=== PATIENT | male | born 1930 | race Caucasian/White ===

== ENCOUNTER 2019-03-26 05:34 | Inpatient (IN) ==
[2019-03-26] MEDS ORDERED: ACETAMINOPHEN 325 MG TABLET PO ONE (06:56)
--- NOTE | 2019-03-26 07:01 | Emergency Department Note ---
Abdominal Pain HPI - General Chief Complaint: Abdominal Pain Stated Complaint: abdominal pain Time Seen by Provider: 03/26/19 06:10 Source: EMS Mode of arrival: EMS Limitations: no limitations - History of Present Illness HPI Narrative: This pleasant 89-year-old gentleman reports that yesterday afternoon he began to have lower abdominal pain; he has not had prior similar. It has progressed to be more severe. Is nonradiating. he has not had a bowel movement; has not changed with eating. He has not noted any fevers chills or sweats until he has been here. REVIEW OF SYSTEMS: Denies chest pain, cough, wheezing, phlegm, nausea, vomiting, diarrhea, constipation, hematochezia, melena, dysuria, dizziness, depression. Has some chronic low back pain. - Related Data Home Medications Medication Instructions Recorded Confirmed allopurinol 300 mg tablet 300 mg PO QDAY tab 08/16/14 03/26/19 cyanocobalamin (vitamin B-12) 1,000 mcg PO QDAY tab 08/16/14 03/26/19 1,000 mcg tablet docusate sodium 250 mg capsule 250 mg PO BID cap 08/16/14 03/26/19 ferrous sulfate 325 mg (65 mg 325 mg PO QDAY tab 08/16/14 03/26/19 iron) tablet simvastatin 20 mg tablet 20 mg PO QPM tab 08/16/14 03/26/19 nhgcgquj-cuh-kbbvx acid 0.4 1 tab PO .QD tab 09/27/14 03/26/19 mg-lycopene 300 mcg-lutein 250 mcg tablet metoprolol tartrate 25 mg tablet 12.5 mg PO BID tab 01/02/15 03/26/19 insulin glargine 100 unit/mL (3 10 unit SUB-Q QDAY 07/23/17 03/26/19 mL) subcutaneous pen alogliptin 12.5 mg tablet 12.5 mg PO QDAY 08/24/18 03/26/19 warfarin 5 mg tablet 5 mg PO QDAY 08/24/18 03/26/19 furosemide 20 mg tablet 40 mg PO BID tab 12/23/18 03/26/19 Budesonide/Formoterol Fumarate 2 puff IH Q12 03/26/19 03/26/19 [Budesonide-Formoterol 160-4.5] Potassium Chloride [Kdur] 10 meq PO DAILY 03/26/19 03/26/19 Allergies Allergy/AdvReac Type Severity Reaction Status Date / Time No Known Drug Allergies Allergy Verified 03/23/19 10:54 Abdominal Pain PMH - Past Medical History [facility] Narrative: Medical History (Last Updated 03/26/19 @ 07:06 by Omari Qureshi DO) snf (current) use of anticoagulants (Chronic) Atrial fibrillation (Chronic) Diabetes mellitus, type II (Chronic) Chronic kidney disease, stage III (moderate) (Chronic) 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) Cardiomegaly (Chronic) Morbid obesity (Chronic) Pulmonary arterial hypertension (Chronic) Hypoxemia (Chronic) KACI on CPAP (Chronic) 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) Hypertensive renal disease (Chronic) Peripheral vascular disease (Chronic) Hypertension (Chronic) History of gout (Chronic) Hyperlipidemia (Chronic) Edema (Chronic) Anasarca (Resolved) Past Surgical History (Last Updated 03/26/19 @ 07:02 by Omari Qureshi DO) History of transurethral resection of prostate (Acute) History of biopsy (Acute 06/21/14) History of hernia surgery (Acute) History of tonsillectomy (Acute) S/P cataract extraction (Acute) Family History (Last Reviewed 03/23/19 @ 11:23 by GRETEL Ordonez) Unknown No family history of kidney disease Father Malignant neoplasm Medical history: Denies: cancer, CHF, CVA, DVT, TIA Denies: diverticulitis, kidney stone, pancreatitis, peptic ulcer disease Psychiatric history: Denies: anxiety, depression - Social History Smoking status: Never smoker Alcohol use: Reports: None Drug use: Reports: none. Denies: marijuana Physical Exam Limitations: no limitations General appearance: alert, in no apparent distress, other (quite warm to touch.) Head: atraumatic, normocephalic Eye: Present: PERRL, EOMI ENT: Present: mucous membranes dry Neck: Present: trachea midline. Absent: lymphadenopathy, thyromegaly Chest: Present: symmetric chest wall rise Respiratory: Present: normal lung sounds bilaterally. Absent: respiratory distress, wheezes, stridor, accessory muscle use, prolonged expiratory phase Cardiovascular: Present: tachycardia, irregular rhythm. Absent: systolic murmur, diastolic murmur Abdominal: Present: soft, tenderness. Absent: distention, guarding, rebound, rigidity, organomegaly, mass Abdominal tenderness: Present: moderate. Absent: RLQ Extremities: Absent: pedal edema, pretibial edema (1/4 bilaterally.) Back: Absent: CVA tenderness (R), CVA tenderness (L), spinous process tenderness Neurological: Present: alert, oriented X3 Psychiatric: Present: normal affect, normal mood Skin: Present: warm, dry Course Vital Signs Temperature 101.8 F H 03/26/19 05:35 Pulse Rate 102 H 03/26/19 05:35 Respiratory Rate 18 03/26/19 05:35 Blood Pressure 148/72 03/26/19 05:35 Pulse Oximetry (%) 90 03/26/19 05:35 Temperature 100.8 F H 03/26/19 07:53 Pulse Rate 95 H 03/26/19 06:17 Respiratory Rate 27 H 03/26/19 06:17 Blood Pressure 130/83 03/26/19 06:17 Pulse Oximetry (%) 97 03/26/19 06:17 Abdominal Pain - MDM Narrative Medical decision making narrative: 6:23 AM - 89-year-old with lower abdominal pain and fever. Will need to do general work-up and imaging. Labs returned with mild anemia, new. Lactic acid 2.2 CRP elevated at 7.7 BUN/Cr at 28 and 1.6, similar to previous/stable. Bili 2.1 8:45 AM - EKG done because of possible ST depression and his rhythm strip. It confirms atrial fibrillation with incomplete right bundle branch block and significant ST depression in the anterior leads consider ischemia. We are seeking an old EKG. Patient has no complaints of chest discomforts. Troponin. 8:50 AM - CT Abd Pelvis Report: 1. 8 cm mass infiltrating the cecal wall resulting in partial bowel obstruction and decompression of the remaining colon. Adenocarcinoma is suspected. No definite evidence of metastatic adenopathy or metastases (although evaluation of liver other solid parenchymal organs is limited due to the absence of intravenous contrast). Suggest GI referral for colonoscopy. If colonoscopy is technically difficult due to sigmoid colon tortuosity, it could be percutaneously biopsied under CT guidance 2. 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 3. 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 Possible discussion with general surgeon to attempt diagnostic colonoscopy pending. Because of change in shift care transferred to Dr. Valdovinos for final disposition. - Lab Data Result diagrams: 03/26/19 05:45 03/26/19 05:45 Lab Results 03/26/19 03/26/19 03/26/19 Range/Units 05:45 05:45 05:45 WBC 8.7 (4.50-11.00) K/mcL RBC 4.05 L (4.63-6.08) M/mcL Hgb 12.0 L (13.7-17.5) g/dL Hct 37.8 L (40.1-51.0) % MCV 93.3 (80.0-100.0) fL MCH 29.6 (26.0-34.0) pg MCHC 31.7 (31.0-36.0) g/dL RDW 15.8 H (11.5-14.5) % Plt Count 227 (140-440) K/mcL MPV 10.7 H (7.4-10.4) fL Gran % 79.1 H (38.0-78.0) % Lymph % (Auto) 13.2 L (15.5-49.0) % Burnett % (Auto) 6.1 (1.0-12.0) % Eos % (Auto) 1.3 (0.0-7.0) % Baso % (Auto) 0.3 (0.0-2.0) % Gran # 6.84 (1.80-8.00) K/mcL Lymph # (Auto) 1.14 L (1.50-4.80) K/mcL Burnett # (Auto) 0.53 (0.10-0.90) K/mcL Eos # (Auto) 0.11 (0.00-0.70) K/mcL Baso # (Auto) 0.03 (0.00-0.30) K/mcL VBG Lactic Acid 2.2 H (0.5-2.0) mmol/L Sodium 139 (133-145) mmol/L Potassium 3.9 (3.3-5.1) mmol/L Chloride 99 (96-108) mmol/L Carbon Dioxide 25 (22-30) mmol/L Anion Gap 15.0 (8-16) BUN 28 H (8-23) mg/dl Creatinine 1.6 H (0.7-1.2) mg/dl GFR Calculation 38 Glucose 131 H (70-105) mg/dL Calcium 9.4 (8.6-10.4) mg/dl Total Bilirubin 2.1 H (0.0-1.0) mg/dL AST 18 (0-37) U/l ALT 16 (0-40) U/l Alkaline Phosphatase 79 (39-117) U/L C-Reactive Protein (0.0-0.8) mg/dl Total Protein 7.6 (5.9-8.4) gm/dL Albumin 3.7 (3.2-5.2) gm/dL Globulin 3.9 H (2.2-3.7) gm/dL Albumin/Globulin Ratio 0.9 L (1.0-2.3) 03/26/19 03/26/19 Range/Units 05:45 06:42 WBC (4.50-11.00) K/mcL RBC (4.63-6.08) M/mcL Hgb (13.7-17.5) g/dL Hct (40.1-51.0) % MCV (80.0-100.0) fL MCH (26.0-34.0) pg MCHC (31.0-36.0) g/dL RDW (11.5-14.5) % Plt Count (140-440) K/mcL MPV (7.4-10.4) fL Gran % (38.0-78.0) % Lymph % (Auto) (15.5-49.0) % Burnett % (Auto) (1.0-12.0) % Eos % (Auto) (0.0-7.0) % Baso % (Auto) (0.0-2.0) % Gran # (1.80-8.00) K/mcL Lymph # (Auto) (1.50-4.80) K/mcL Burnett # (Auto) (0.10-0.90) K/mcL Eos # (Auto) (0.00-0.70) K/mcL Baso # (Auto) (0.00-0.30) K/mcL VBG Lactic Acid 1.7 (0.5-2.0) mmol/L Sodium (133-145) mmol/L Potassium (3.3-5.1) mmol/L Chloride (96-108) mmol/L Carbon Dioxide (22-30) mmol/L Anion Gap (8-16) BUN (8-23) mg/dl Creatinine (0.7-1.2) mg/dl GFR Calculation Glucose (70-105) mg/dL Calcium (8.6-10.4) mg/dl Total Bilirubin (0.0-1.0) mg/dL AST (0-37) U/l ALT (0-40) U/l Alkaline Phosphatase (39-117) U/L C-Reactive Protein 7.7 H (0.0-0.8) mg/dl Total Protein (5.9-8.4) gm/dL Albumin (3.2-5.2) gm/dL Globulin (2.2-3.7) gm/dL Albumin/Globulin Ratio (1.0-2.3) Disposition Pt seen by HR ADMINISTRATOR/PA only: No Clinical Impression: Mass of cecum, Abnormal ECG Abdominal pain Qualifiers: Abdominal location: lower abdomen, unspecified Qualified Code(s): R10.30 - Lower abdominal pain, unspecified Fever Qualifiers: Fever type: unspecified Qualified Code(s): R50.9 - Fever, unspecified Disposition: Still a Patient Referrals: Lilian Langford ARNP [Primary Care Provider] -
[2019-03-26 07:08] LABS: Basophils # (Auto) 0.03 K/mcL (0.00-0.30); Basophils % (Auto) 0.3 % (0.0-2.0); Eosinophils # (Auto) 0.11 K/mcL (0.00-0.70); Eosinophils % (Auto) 1.3 % (0.0-7.0); Granulocytes % (Auto) 79.1 % (38.0-78.0); Hematocrit 37.8 % (40.1-51.0); Lymphocytes # (Auto) 1.14 K/mcL (1.50-4.80); Lymphocytes % (Auto) 13.2 % (15.5-49.0); Mean Cell Volume 93.3 fL (80.0-100.0); Mean Corpuscular HGB Conc 31.7 g/dL (31.0-36.0); Mean Platelet Volume 10.7 fL (7.4-10.4); Monocytes # (Auto) 0.53 K/mcL (0.10-0.90); Monocytes % (Auto) 6.1 % (1.0-12.0); Platelet Count 227 K/mcL (140-440); RBC 4.05 M/mcL (4.63-6.08); Red Cell Distribution Width 15.8 % (11.5-14.5); WBC 8.7 K/mcL (4.50-11.00)
[2019-03-26 07:09] LABS: ALT/SGPT 16 U/l (0-40); AST/SGOT 18 U/l (0-37); Albumin 3.7 gm/dL (3.2-5.2); Albumin/Globulin Ratio 0.9 (1.0-2.3); Alkaline Phosphatase 79 U/L (39-117); Bilirubin,Total 2.1 mg/dL (0.0-1.0); Blood Urea Nitrogen 28 mg/dl (8-23); Calcium 9.4 mg/dl (8.6-10.4); Carbon Dioxide 25 mmol/L (22-30); Chloride 99 mmol/L (96-108); Globulin 3.9 gm/dL (2.2-3.7); Glomerular Filtration Rate 38; Glucose 131 mg/dL (70-105)
--- NOTE | 2019-03-26 08:10 | Cat Scan Report ---
CLINICAL INFORMATION: Abdominal pain. History of hernia repair COMPARISON: Abdominal MRI 04/28/2014 TECHNIQUE: 0.625 mm helical slices were obtained from the mid heart through the subtrochanteric regions. Following reconstruction, 2.5 mm sagittal, coronal and axial reformatted images were processed and reviewed at bone and soft tissue windows.The exam was performed using radiation dose optimization techniques including, but not limited to, automated exposure control, adjustment of the mA and/or kV according to patient size and use of iterative reconstruction technique. FINDINGS: Lung bases show mild scarring or atelectasis in both posterior inferior lower lobes. No effusions. The heart is moderately enlarged with scattered calcific plaque in the coronary arteries. Abdominal views show the noncontrasted liver, spleen, pancreas both adrenal glands and right kidney to be normal in size, position and configuration and attenuation. A 12 mm simple cyst in the lateral mid left kidney is unchanged from the 2015 MRI. A fusiform infrarenal abdominal aortic aneurysm with a diameter of 3.7 cm is unchanged. Diffuse aneurysmal enlargement of both common iliac arteries appreciated: the left is 2.5 cm and the right is 1.8 cm. This is unchanged from the prior MRI. Pelvic images show urinary bladder to be unremarkable. There are multiple calcifications in the right prostate. A large left Spigelian hernia spanning 12 cm contains only mesenteric fat and a few calcifications. It is unchanged from 2015 There is an 8 x 7 cm mass infiltrating the cecal wall and nearly obliterating the cecal lumen. It is suspicious for adenocarcinoma. There is mild ejection in the pericolonic fat. There is mild dilatation of the jejunum and ileum compatible partial bowel obstruction. The colon, distal to the cecum, is markedly decompressed. Bone windows show only degenerative changes throughout the lumbar spine IMPRESSION: 1. 8 cm mass infiltrating the cecal wall resulting in partial bowel obstruction and decompression of the remaining colon. Adenocarcinoma is suspected. No definite evidence of metastatic adenopathy or metastases (although evaluation of liver other solid parenchymal organs is limited due to the absence of intravenous contrast). Suggest GI referral for colonoscopy. If colonoscopy is technically difficult due to sigmoid colon tortuosity, it could be percutaneously biopsied under CT guidance 2. 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 3. 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 Interpreted and Authenticated by: Leonard Gaviria 03/26/19
[2019-03-26 10:43] LABS: INR 2.9 (0.9-1.1); Prothrombin Time 30.5 sec (11.9-14.5)
[2019-03-26 10:59] LABS: Carcinoembryonic Antigen 17.1 ng/mL (0.0-3.4)
[2019-03-26] MEDS ORDERED: ACETAMINOPHEN 325 MG TABLET PO PRN (11:22)
--- NOTE | 2019-03-26 11:22 | Emergency Department Note ---
ED Note Addendum Note Addendum: Dr. Qureshi discussed hospital admission with Dr. Hughes. We did order a troponin on him on account of his EKG showing ST segment depression in V2 and V3 and V4, troponin was negative. He was not symptomatically with any type of chest pain or shortness of breath. The. At this point, I think he can be admitted. Monitor serial troponins. The. His biggest issue right now is tumor in the right lower quadrant. The abdomen, abdominal mass, which is likely cancerous. The. His CEA was also abnormal. Final diagnosis is abdominal pain and. Abdominal mass associated with fever. Initial orders written for Dr. Hughes who is currently in surgery
--- NOTE | 2019-03-26 15:18 | General Surg History&Physical ---
History of Present Illness Patient information: Note initiated : 03/26/19 at 3:16 pm Service Date, if different from initiated Date: [] Patient: Honorio Byrd a 89 y/o M admitted on 03/26/19 for abdominal pain. Chief Complaint: [] HPI: Mr. Byrd is a 89 year old M admitted for near obstructing cecal neoplasm. The patient states that he has acute onset of pain in his right lower quadrant and right flank on yesterday. The pain has increased since intensity. He has had bloating but states that he is not noted nausea, vomiting. He has noted that he has had difficulty with bowel movements and he's been using Dulcolax tablets regularly. He denies rectal bleeding or dark stools. He has been on iron therapy for anemia. He had colonoscopy over 10 years ago but states that it was normal. CT confirms a solid mass in the cecum measuring 7 x 8 cm causing near complete obstruction. He is admitted and after stabilization will undergo right colectomy. Review of Systems All systems PM: reviewed and no additional remarkable complaints except as stated (as noted in history of present illness and as below) - Constitutional fatigue, malaise, weakness - Cardiovascular dyspnea on exertion, palpatations (: Cold and tests), rapid heart rate, no chest pain with activity, no irregular heart rhythm - Respiratory dyspnea on exertion - Gastrointestinal abdominal pain, belching, bloating, change in bowel habits, cramping - Musculoskeletal arthralgias, stiffness - Integumentary no pruritus, no rash - Neurological tremor(s) - Hematologic/Lymphatic no easy bleeding, no easy bruising, no lymphadenopathy Past History Past medical history: Chronic obstructive sleep apnea. Diabetes mellitus type 2. Hypertension. Chronic kidney disease stage III. Chronic atrial fibrillation on chronic warfarin therapy. Compensated congestive heart failure. Peripheral vascular disease. Recent echocardiogram shows pulmonary hypertension with left ventricular ejection fraction of 55% and dilated right ventricle. Aortic valvular cross-section area 1.4 cm Past surgical history: Left inguinal hernia repair Past family history: Not quite sure of family illnesses Past social history: Never smoker. Drinks occasional alcoholic beverage Medications and Allergies Home Medications Medication Instructions Recorded Confirmed Type allopurinol 300 mg tablet 300 mg PO QDAY tab 08/16/14 03/26/19 History cyanocobalamin (vitamin B-12) 1,000 mcg PO QDAY tab 08/16/14 03/26/19 History 1,000 mcg tablet docusate sodium 250 mg capsule 250 mg PO BID cap 08/16/14 03/26/19 History ferrous sulfate 325 mg (65 mg 325 mg PO QDAY tab 08/16/14 03/26/19 History iron) tablet simvastatin 20 mg tablet 20 mg PO QPM tab 08/16/14 03/26/19 History cvtfafiu-gaa-yngan acid 0.4 1 tab PO .QD tab 09/27/14 03/26/19 History mg-lycopene 300 mcg-lutein 250 mcg tablet metoprolol tartrate 25 mg tablet 12.5 mg PO BID tab 01/02/15 03/26/19 History insulin glargine 100 unit/mL (3 10 unit SUB-Q QDAY 07/23/17 03/26/19 History mL) subcutaneous pen alogliptin 12.5 mg tablet 12.5 mg PO QDAY 08/24/18 03/26/19 History warfarin 5 mg tablet 5 mg PO QDAY 08/24/18 03/26/19 History furosemide 20 mg tablet 40 mg PO BID tab 12/23/18 03/26/19 History Budesonide/Formoterol Fumarate 2 puff IH Q12 03/26/19 03/26/19 History [Budesonide-Formoterol 160-4.5] Potassium Chloride [Kdur] 10 meq PO DAILY 03/26/19 03/26/19 History Allergies Allergy/AdvReac Type Severity Reaction Status Date / Time No Known Drug Allergies Allergy Verified 03/23/19 10:54 Exam Temp Pulse Resp BP Pulse Ox 98.5 F 97 H 14 123/72 92 03/26/19 13:20 03/26/19 13:20 03/26/19 13:20 03/26/19 13:20 03/26/19 13:20 - General physical appearance well developed, well nourished, no distress, moderate pain, obese - Eyes PERRL, normal ocular movement - ENT normal pinna, normal nares, normal mucosa, no hearing loss, no congestion - Head Head exam IM: Present: atraumatic, normal inspection, normocephalic - Neck no masses, no bruits, trachea midline, no lymphadenopathy, no venous distension - Cardiovascular Cardiovascular exam IM: Present: irregular rhythm, +S1, +S2, tachycardia. Absent: JVD - Respiratory normal expansion, normal respiratory effort, clear to auscultation - Abdomen Abdomen: Present: soft, non tender, bowel sounds, distended (distended abdomen; tender, hard mass right lower quadrant; nontender firm mass left lower quadrant; good active bowel sounds) Hernia: Present: none - Genitourinary Present: normal penis with no external lesions - Rectum Rectum: Present: normal sphincter tone, no hemorrhoids, no tenderness, no masses, no bleeding - Integumentary Present: no rash, no growths, no abnormal pigmentation - Neurologic Present: normal coordination, normal sensation, other (resting tremor) - Musculoskeletal Present: normal gait, normal posture - Psychiatric Present: oriented to time, oriented to person, oriented to place, speech is normal, memory intact Assessment and Plan (1) Mass of cecum Patient has a very large neoplastic mass of the cecum causing near complete obstruction. He cannot be prepped but will have right colectomy tomorrow. We'll need to correct pro time with fresh frozen plasma and vitamin K tonight and repeat PT/INR at 8 PM and in the morning Status: Acute (2) Partial small bowel obstruction Status: Acute (3) intermediate (current) use of anticoagulants Hold Coumadin therapy. Vitamin K 10 mg subcutaneous. Fresh frozen plasma 3 units tonight. Lasix 40 mg after the fresh frozen plasma. 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
[2019-03-26] MEDS ORDERED: FUROSEMIDE 40 MG/4 ML VIAL IV ONE (15:31)
[2019-03-26] MEDS ORDERED: 0.9 % SODIUM CHLORIDE 250 ML IV SCH (15:45)
[2019-03-26] MEDS ORDERED: HYDROmorphone 2 MG/ML VIAL IV PRN (15:49)
[2019-03-26] MEDS ORDERED: ONDANSETRON 4 MG/2 ML VIAL IV PRN (15:50)
[2019-03-26] MEDS ORDERED: PHYTONADIONE 10 MG/ML AMPUL SQ ONE (16:00)
--- NOTE | 2019-03-26 16:07 | XRay Report ---
CLINICAL INFORMATION: preop evaluation COMPARISON: 03/21/2014 FINDINGS: Mild cardiomegaly is unchanged. Mediastinum is unremarkable. Pulmonary vessels normal for technique. There is minor bibasilar atelectasis. No effusions IMPRESSION: Mild stable cardiomegaly. No acute disease Interpreted and Authenticated by: Leonard Gaviria 03/26/19
[2019-03-26] MEDS: PIPERACILLIN SODIUM/TAZOBACTAM 3.375 GM in DEXTROSE 5% IN WATER 50 ML IV SCH ×2 (16:35→20:35)
[2019-03-26] MEDS: LACTATED RINGERS 1,000 ML IV SCH (16:36)
[2019-03-26] MEDS ORDERED: DEXTROSE 31 GM ORAL.SUSP PO PRN (18:55)
[2019-03-26] MEDS ORDERED: DEXTROSE 50% 50 ML VIAL IV PRN (18:55)
[2019-03-26] MEDS: INSULIN LISPRO 1 UNIT/0.01 ML UNIT SQ SCH (19:25)
[2019-03-27] MEDS: INSULIN LISPRO 1 UNIT/0.01 ML UNIT SQ SCH ×4 (00:03→17:40)
[2019-03-27 02:01] LABS: INR 2.3 (0.9-1.1); Prothrombin Time 25.8 sec (11.9-14.5)
[2019-03-27] MEDS: LACTATED RINGERS 1,000 ML IV SCH ×5 (02:13→22:22)
[2019-03-27] MEDS ORDERED: 0.9 % SODIUM CHLORIDE 250 ML IV SCH ×2 (03:00→15:00)
[2019-03-27] MEDS ORDERED: PHYTONADIONE 10 MG/ML AMPUL SQ ONE ×2 (05:30→17:00)
[2019-03-27] MEDS ORDERED: 0.9 % SODIUM CHLORIDE 500 ML IV ONE (05:34)
[2019-03-27] MEDS ORDERED: FUROSEMIDE 20 MG/2 ML VIAL IV ONE ×2 (05:36→05:51)
[2019-03-27 05:45] LABS: POC INR 1.7 (0.9-1.2); POC Pro Time 20.2 sec (11.9-14.5)
[2019-03-27] MEDS ORDERED: PHYTONADIONE 10 MG/ML AMPUL ONE (05:54)
[2019-03-27] MEDS: PIPERACILLIN SODIUM/TAZOBACTAM 3.375 GM in DEXTROSE 5% IN WATER 50 ML IV SCH ×4 (06:11→17:03)
[2019-03-27 07:11] LABS: Basophils # (Auto) 0.04 K/mcL (0.00-0.30); Basophils % (Auto) 0.3 % (0.0-2.0); Eosinophils # (Auto) 0.03 K/mcL (0.00-0.70); Eosinophils % (Auto) 0.3 % (0.0-7.0); Granulocytes % (Auto) 88.9 % (38.0-78.0); Hematocrit 29.6 % (40.1-51.0); Hemoglobin 9.4 g/dL (13.7-17.5); Lymphocytes # (Auto) 0.68 K/mcL (1.50-4.80); Lymphocytes % (Auto) 5.7 % (15.5-49.0); Mean Cell Volume 92.8 fL (80.0-100.0); Mean Corpuscular HGB Conc 31.8 g/dL (31.0-36.0); Mean Platelet Volume 10.9 fL (7.4-10.4); Monocytes # (Auto) 0.57 K/mcL (0.10-0.90); Monocytes % (Auto) 4.8 % (1.0-12.0); Platelet Count 163 K/mcL (140-440); RBC 3.19 M/mcL (4.63-6.08); Red Cell Distribution Width 15.7 % (11.5-14.5); WBC 11.9 K/mcL (4.50-11.00)
[2019-03-27 07:33] LABS: ALT/SGPT 12 U/l (0-40); AST/SGOT 19 U/l (0-37); Albumin 3.1 gm/dL (3.2-5.2); Albumin/Globulin Ratio 0.9 (1.0-2.3); Alkaline Phosphatase 84 U/L (39-117); Bilirubin,Direct 0.7 mg/dL (0.0-0.3); Bilirubin,Total 2.1 mg/dL (0.0-1.0); Blood Urea Nitrogen 31 mg/dl (8-23); Carbon Dioxide 26 mmol/L (22-30); Chloride 96 mmol/L (96-108); Globulin 3.6 gm/dL (2.2-3.7); Glomerular Filtration Rate 35; Glucose 134 mg/dL (70-105); Lactate Dehydrogenase 222 U/L (94-250); Phosphorous 2.7 mg/dL (2.7-4.5); Triglycerides 69 mg/dl (<150); Uric Acid 5.8 mg/dL (2.5-8.0)
--- NOTE | 2019-03-27 14:50 | General Surgery Progress Note ---
Subjective Patient reports: still having pain, flatus, bowel movement, afebrile Narrative: Note initiated : 03/27/19 at 2:48 pm Service Date, if different from initiated Date: [] Patient: Honorio Byrd 89 y/o M admitted on 03/26/19 for abdominal pain. Chief Complaint: [patient is stable, except for right-sided abdominal pain. His PT is still 20 with INR of 1.7, so surgery was postponed until tomorrow. White blood count 11.9, hemoglobin 9.4, hematocrit 29.6, BUN 31, creatinine 1.7, BNP 6175.] Objective Temp Pulse Resp BP Pulse Ox 98.4 F 86 18 106/65 97 03/27/19 12:00 03/27/19 12:00 03/27/19 12:00 03/27/19 12:00 03/27/19 12:00 - Additional Data Intake & Output - Last 24 hours: Intake & Output 03/25/19 03/26/19 03/27/19 03/28/19 05:59 05:59 05:59 05:59 Intake Total 3662 2380 Output Total 775 550 Balance 2887 1830 Weight 280 lb 275 lb - General physical appearance well developed, well nourished, no distress, moderate pain, obese - Eyes PERRL, normal ocular movement - ENT normal pinna, normal nares, normal mucosa, no hearing loss, no congestion - Neck no masses, no bruits, trachea midline, no lymphadenopathy, no venous distension - Respiratory normal expansion, normal respiratory effort, clear to auscultation - Cardiovascular Cardiovascular exam: Present: normal rate and rhythm, RRR, +S1, +S2. Absent: JVD, tachycardia - Abdomen tender, masses, distended (abdomen is significantly distended and obese; tenderness right flank and right upper quadrant with palpable mass) - Integumentary no rash, no growths, no abnormal pigmentation - Neurologic normal coordination, normal sensation - Musculoskeletal normal gait, normal posture - Psychiatric oriented to time, oriented to person, oriented to place, speech is normal, memory intact - Labs 03/27/19 05:20 03/27/19 05:20 Diabetes panel 03/27/19 Range/Units 05:20 Sodium 135 (133-145) mmol/L Potassium 3.6 (3.3-5.1) mmol/L Chloride 96 (96-108) mmol/L Carbon Dioxide 26 (22-30) mmol/L BUN 31 H (8-23) mg/dl Creatinine 1.7 H (0.7-1.2) mg/dl Glucose 134 H (70-105) mg/dL Calcium 9.0 (8.6-10.4) mg/dl AST 19 (0-37) U/l ALT 12 (0-40) U/l Alkaline Phosphatase 84 (39-117) U/L Total Protein 6.7 (5.9-8.4) gm/dL Albumin 3.1 L (3.2-5.2) gm/dL Triglycerides 69 (<150) mg/dl Calcium panel 03/27/19 Range/Units 05:20 Calcium 9.0 (8.6-10.4) mg/dl Phosphorus 2.7 (2.7-4.5) mg/dL Albumin 3.1 L (3.2-5.2) gm/dL Pituitary panel 03/27/19 Range/Units 05:20 Sodium 135 (133-145) mmol/L Potassium 3.6 (3.3-5.1) mmol/L Chloride 96 (96-108) mmol/L Carbon Dioxide 26 (22-30) mmol/L BUN 31 H (8-23) mg/dl Creatinine 1.7 H (0.7-1.2) mg/dl Glucose 134 H (70-105) mg/dL Calcium 9.0 (8.6-10.4) mg/dl Adrenal panel 03/27/19 Range/Units 05:20 Sodium 135 (133-145) mmol/L Potassium 3.6 (3.3-5.1) mmol/L Chloride 96 (96-108) mmol/L Carbon Dioxide 26 (22-30) mmol/L BUN 31 H (8-23) mg/dl Creatinine 1.7 H (0.7-1.2) mg/dl Glucose 134 H (70-105) mg/dL Calcium 9.0 (8.6-10.4) mg/dl Total Bilirubin 2.1 H (0.0-1.0) mg/dL AST 19 (0-37) U/l ALT 12 (0-40) U/l Alkaline Phosphatase 84 (39-117) U/L Total Protein 6.7 (5.9-8.4) gm/dL Albumin 3.1 L (3.2-5.2) gm/dL Assessment and Plan (1) Mass of cecum Status: Acute Assessment and plan: Surgery for today was postponed and I will reschedule it for tomorrow due to elevated PT/INR. 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 Repeat vitamin K 10 mg subcutaneous twice today. Follow-up PT/INR in a.m. 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
[2019-03-28] MEDS: PIPERACILLIN SODIUM/TAZOBACTAM 3.375 GM in DEXTROSE 5% IN WATER 50 ML IV SCH ×3 (00:20→12:26)
[2019-03-28] MEDS: INSULIN LISPRO 1 UNIT/0.01 ML UNIT SQ SCH ×3 (01:13→12:26)
[2019-03-28 06:36] LABS: INR 1.5 (0.9-1.1)
[2019-03-28 06:42] LABS: Basophils # (Auto) 0.03 K/mcL (0.00-0.30); Basophils % (Auto) 0.3 % (0.0-2.0); Eosinophils # (Auto) 0.42 K/mcL (0.00-0.70); Eosinophils % (Auto) 4.2 % (0.0-7.0); Granulocytes % (Auto) 84.2 % (38.0-78.0); Hematocrit 31.9 % (40.1-51.0); Hemoglobin 9.9 g/dL (13.7-17.5); Lymphocytes # (Auto) 0.59 K/mcL (1.50-4.80); Lymphocytes % (Auto) 5.9 % (15.5-49.0); Mean Cell Volume 94.4 fL (80.0-100.0); Mean Platelet Volume 11.1 fL (7.4-10.4); Monocytes # (Auto) 0.54 K/mcL (0.10-0.90); Monocytes % (Auto) 5.4 % (1.0-12.0); Platelet Count 152 K/mcL (140-440); RBC 3.38 M/mcL (4.63-6.08); Red Cell Distribution Width 15.7 % (11.5-14.5); WBC 9.9 K/mcL (4.50-11.00)
[2019-03-28 06:43] LABS: ALT/SGPT 12 U/l (0-40); AST/SGOT 17 U/l (0-37); Albumin/Globulin Ratio 0.9 (1.0-2.3); Alkaline Phosphatase 68 U/L (39-117); Bilirubin,Direct 0.8 mg/dL (0.0-0.3); Bilirubin,Total 1.9 mg/dL (0.0-1.0); Blood Urea Nitrogen 32 mg/dl (8-23); Calcium 8.6 mg/dl (8.6-10.4); Carbon Dioxide 25 mmol/L (22-30); Chloride 99 mmol/L (96-108); Globulin 3.3 gm/dL (2.2-3.7); Glomerular Filtration Rate 33; Glucose 111 mg/dL (70-105); Lactate Dehydrogenase 182 U/L (94-250); Phosphorous 2.8 mg/dL (2.7-4.5); Triglycerides 75 mg/dl (<150); Uric Acid 5.2 mg/dL (2.5-8.0)
[2019-03-28] MEDS ORDERED: SCOPOLAMINE 1 PATCH PATCH TOPICAL PRN ×2 (07:00→16:57)
[2019-03-28] MEDS ORDERED: IPRATROPIUM/ALBUTEROL 3 ML AMPUL.NEB NEB PRN ×2 (07:00→16:57)
[2019-03-28] MEDS ORDERED: MAGNESIUM SULFATE 2 GM/50 ML BAG IV ONE ×2 (08:17→16:57)
[2019-03-28] MEDS: LACTATED RINGERS 1,000 ML IV SCH (09:06)
[2019-03-28] MEDS ORDERED: POTASSIUM CHLORIDE 20 MEQ TABLET PO ONE (10:11)
[2019-03-28] MEDS ORDERED: 0.9 % SODIUM CHLORIDE 250 ML IV SCH ×2 (13:00→16:57)
[2019-03-28] MEDS ORDERED: NITROGLYCERIN/D5W 25 MG/250 ML BOTTLE IV SCH ×2 (13:00→16:57)
[2019-03-28] MEDS ORDERED: ALBUMIN HUMAN 37.5 GM/150 ML BAG IV ONE ×2 (13:00→16:57)
[2019-03-28] MEDS ORDERED: MIDAZOLAM 2 MG/2 ML VIAL IV ONE (13:45)
--- NOTE | 2019-03-28 14:07 | General Surgery Progress Note ---
Subjective Narrative: Note initiated : 03/28/19 at 2:05 pm Service Date, if different from initiated Date: [] Patient: Honorio Byrd 89 y/o M admitted on 03/26/19 for abdominal pain. Chief Complaint: [] Objective Temp Pulse Resp BP Pulse Ox 98.5 F 80 18 135/81 96 03/28/19 12:00 03/28/19 04:10 03/28/19 12:00 03/28/19 12:00 03/28/19 12:00 - Additional Data Intake & Output - Last 24 hours: Intake & Output 03/26/19 03/27/19 03/28/19 03/29/19 05:59 05:59 05:59 05:59 Intake Total 3662 5642 804 Output Total 775 1200 300 Balance 2887 4442 504 Weight 280 lb 275 lb 296 lb - Labs 03/28/19 05:20 03/28/19 05:20 Diabetes panel 03/28/19 Range/Units 05:20 Sodium 136 (133-145) mmol/L Potassium 3.5 (3.3-5.1) mmol/L Chloride 99 (96-108) mmol/L Carbon Dioxide 25 (22-30) mmol/L BUN 32 H (8-23) mg/dl Creatinine 1.8 H (0.7-1.2) mg/dl Glucose 111 H (70-105) mg/dL Calcium 8.6 (8.6-10.4) mg/dl AST 17 (0-37) U/l ALT 12 (0-40) U/l Alkaline Phosphatase 68 (39-117) U/L Total Protein 6.3 (5.9-8.4) gm/dL Albumin 3.0 L (3.2-5.2) gm/dL Triglycerides 75 (<150) mg/dl Calcium panel 03/28/19 Range/Units 05:20 Calcium 8.6 (8.6-10.4) mg/dl Phosphorus 2.8 (2.7-4.5) mg/dL Albumin 3.0 L (3.2-5.2) gm/dL Pituitary panel 03/28/19 Range/Units 05:20 Sodium 136 (133-145) mmol/L Potassium 3.5 (3.3-5.1) mmol/L Chloride 99 (96-108) mmol/L Carbon Dioxide 25 (22-30) mmol/L BUN 32 H (8-23) mg/dl Creatinine 1.8 H (0.7-1.2) mg/dl Glucose 111 H (70-105) mg/dL Calcium 8.6 (8.6-10.4) mg/dl Adrenal panel 03/28/19 Range/Units 05:20 Sodium 136 (133-145) mmol/L Potassium 3.5 (3.3-5.1) mmol/L Chloride 99 (96-108) mmol/L Carbon Dioxide 25 (22-30) mmol/L BUN 32 H (8-23) mg/dl Creatinine 1.8 H (0.7-1.2) mg/dl Glucose 111 H (70-105) mg/dL Calcium 8.6 (8.6-10.4) mg/dl Total Bilirubin 1.9 H (0.0-1.0) mg/dL AST 17 (0-37) U/l ALT 12 (0-40) U/l Alkaline Phosphatase 68 (39-117) U/L Total Protein 6.3 (5.9-8.4) gm/dL Albumin 3.0 L (3.2-5.2) gm/dL Assessment and Plan (1) Mass of cecum Status: Acute Assessment and plan: Surgery for today was postponed and I will reschedule it for tomorrow due to elevated PT/INR. 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 Repeat vitamin K 10 mg subcutaneous twice today. Follow-up PT/INR in a.m. 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
--- NOTE | 2019-03-28 14:55 | Discharge Summary ---
Providers - Providers Patient information: Note initiated : 03/28/19 at 2:47 pm Service Date, if different from initiated Date: [] Patient: Honorio Byrd 89 y/o M admitted on 03/26/19 for abdominal pain. 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 He had a history of acute onset of pain in his right lower quadrant and right flank. On the day prior to admission. He also had bloating but no nausea or vomiting. He states that he has had difficulty with bowel movements over the past few weeks and has been using Dulcolax tablets. He has been on iron therapy for chronic anemia. He had colonoscopy over 10 years ago, but states that it was normal. CT confirms a solid mass in the cecum measuring 7 x 8 cm with near complete obstruction. Patient was admitted for stabilization prior to undergoing right colectomy. He was on chronic Coumadin therapy for atrial fibrillation. His PT/INR were significantly elevated and automated attempted initially to correct his coagulopathy with fresh frozen plasma and vitamin K. However, by day after admission, he was not corrected enough to proceed with surgery. The patient also had severe pulmonary artery hypertension with pulmonary artery pressure of 70 mm. He however was clinically active and move around without difficulty. He was able to lie flat. He did have mild renal failure, which did not respond to hydration. By this morning, his PT/INR was corrected enough to proceed with surgery. There was a question as to whether or not he should actually be done about facility because of lack of supportive specialty care. After discussing this with the patient and family, they elected to remain here. While transferring the patient from the bed to the OR table. He rapidly decompensated, dropped his oxygen sats down in the 70s and became essentially. He never lost pressure, however, and he remained relatively alert. Basal these happenings. It was felt that he had minimal reserve and that we should not proceed with anesthesia. A central line was placed for better venous access. An attempt was made to start an arterial line, but that was unsuccessful. Patient has been informed that we will try to have him transferred to [facility] in [facility] were he can have cardiac perioperative and intraoperative support and pulmonary support as needed. Because of his partial obstruction. He will need to have some type of urgent care. Hopefully, they have intravenous sildenafil, which will help them some. He is clinically stable at this time and will be transferred by air care to the accepting hospital. Discharge diagnosis: cecal neoplasm with near complete small bowel obstruction. CEA 17.5. 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 . Chronic atrial fibrillation on long-term Coumadin therapy, presently corrected. Chronic kidney failure stage III, Diabetes mellitus type 2. Obstructive sleep apnea requiring CPAP therapy. Hypertension. Peripheral vascular disease Large spigelian hernia, left lower quadrant Reason for admission: severe abdominal pain with abdominal distention Procedures: None Pertinent studies/significant findings: CT of abdomen and pelvis Complications: None Exam Temp Pulse Resp BP Pulse Ox 98.5 F 80 18 135/81 96 03/28/19 12:00 03/28/19 04:10 03/28/19 12:00 03/28/19 12:00 03/28/19 12:00 - General physical appearance well developed, well nourished, no distress, moderate pain, chronically ill, obese - Eyes PERRL, normal ocular movement - ENT normal pinna, normal nares, normal mucosa, no hearing loss, no congestion - Head Head exam IM: Present: atraumatic, normocephalic - Neck no masses, no bruits, trachea midline, no lymphadenopathy, no venous distension - Cardiovascular Cardiovascular exam IM: Present: irregular rhythm, JVD, +S1, +S2. Absent: tachycardia - Respiratory normal expansion, normal respiratory effort, clear to percussion, clear to au scultation - Abdomen Abdomen: Present: soft, tender (significantly distended abdomen; large tender mass right lower quadrant and flank.), masses (, nontender mass left lower quadrant) Hernia: Present: none - Genitourinary Present: normal penis with no external lesions - Integumentary Present: no rash, no growths, no abnormal pigmentation, other (, 3+ stasis edema with stasis dermatitis bilateral lower extremities) - Neurologic Present: normal coordination, normal sensation - Musculoskeletal Present: normal gait, normal posture - Psychiatric Present: oriented to time, oriented to person, oriented to place, speech is normal, memory intact Discharge Plan - Patient/Caregiver Discharge Instructions Activity: wear oxygen at all times, other (. Patient will be transferred to tertiary center for coordination of care by multiple specialties) Diet: NPO - Follow up Plan Follow up with: Lilian Langford ARNP [Primary Care Provider] - Disposition: [facility] Prognosis: Critical Rehab Potential: Critical I certify that the patient requires SNF services.: No Overall status at discharge: patient is progressing back to baseline Pending Studies Resuscitation Status Full Code Diet NPO Diet (NOW) Start ThuMar 28 012 Acetaminophen (Tylenol) 650 mg PO Q6HP PRN PRN Reason: PAIN/FEVER > 101 Last Admin: 03/27/19 17:39 Dose: 650 mg Documented by: [email or web address] Albuterol/Ipratropium (Duoneb) 3 ml NEB ONCE PRN PRN Reason: Shortness Of Breath Stop: 03/28/19 20:00 Last Admin: 03/28/19 13:45 Dose: 3 ml Documented by: [email or web address] Diagnostic Test (Pha) (Accu-Chek) 1 each FS Q6 PAOLO Last Admin: 03/28/19 12:25 Dose: 1 each Documented by: Admin: 03/28/19 06:13 Dose: 1 each Documented by: Admin: 03/28/19 00:20 Dose: 1 each Documented by: [email or web address] Admin: 03/27/19 17:40 Dose: 1 each Documented by: [email or web address] Admin: 03/27/19 12:06 Dose: 1 each Documented by: [email or web address] Admin: 03/27/19 06:08 Dose: 1 each Documented by: Admin: 03/27/19 00:03 Dose: 1 each Documented by: Admin: 03/26/19 19:25 Dose: 1 each Documented by: KAYY Lactated Ringer's (Lactated Ringers) 1,000 mls @ 125 mls/hr IV .Q8H PAOLO Last Admin: 03/28/19 09:06 Dose: 125 mls/hr Documented by: Infusion: 03/28/19 09:06 Dose: 0 mls/hr Documented by: Infusion: 03/28/19 01:17 Dose: 125 mls/hr Documented by: [email or web address] Infusion: 03/28/19 00:20 Dose: 0 mls/hr Documented by: Admin: 03/27/19 22:22 Dose: 125 mls/hr Documented by: Infusion: 03/27/19 20:05 Dose: 125 mls/hr Documented by: Admin: 03/27/19 17:30 Dose: Not Given Documented by: Admin: 03/27/19 12:05 Dose: 125 mls/hr Documented by: Infusion: 03/27/19 10:13 Dose: 125 mls/hr Documented by: Admin: 03/27/19 07:45 Dose: Not Given Documented by: [email or web address] Admin: 03/27/19 02:13 Dose: 125 mls/hr Documented by: Infusion: 03/27/19 00:36 Dose: 125 mls/hr Documented by: Admin: 03/26/19 16:36 Dose: 125 mls/hr Documented by: JING Piperacillin Sod/Tazobactam (Sod 3.375 gm/ Dextrose) 50 mls @ 100 mls/hr IV Q6H PAOLO; Protocol Last Admin: 03/28/19 12:26 Dose: 100 mls/hr Documented by: Infusion: 03/28/19 06:37 Dose: 0 mls/hr Documented by: Admin: 03/28/19 06:07 Dose: 100 mls/hr Documented by: Infusion: 03/28/19 01:17 Dose: 0 mls/hr Documented by: Admin: 03/28/19 00:20 Dose: 100 mls/hr Documented by: Infusion: 03/27/19 17:33 Dose: 100 mls/hr Documented by: Admin: 03/27/19 17:03 Dose: 100 mls/hr Documented by: Infusion: 03/27/19 12:35 Dose: 100 mls/hr Documented by: Admin: 03/27/19 12:05 Dose: 100 mls/hr Documented by: Infusion: 03/27/19 06:45 Dose: 100 mls/hr Documented by: Admin: 03/27/19 06:11 Dose: 100 mls/hr Documented by: Infusion: 03/27/19 00:30 Dose: 0 mls/hr Documented by: Admin: 03/27/19 00:00 Dose: 100 mls/hr Documented by: Infusion: 03/26/19 21:10 Dose: 0 mls/hr Documented by: Admin: 03/26/19 20:35 Dose: 100 mls/hr Documented by: Infusion: 03/26/19 17:05 Dose: 100 mls/hr Documented by: Admin: 03/26/19 16:35 Dose: 100 mls/hr Documented by: JING Insulin Human Lispro (Humalog) 0 unit SQ Q6 PAOLO; Protocol Last Admin: 03/28/19 12:26 Dose: Not Given Documented by: Admin: 03/28/19 06:13 Dose: Not Given Documented by: Admin: 03/28/19 01:13 Dose: Not Given Documented by: [email or web address] Admin: 03/27/19 17:40 Dose: Not Given Documented by: Admin: 03/27/19 12:05 Dose: 2 units Documented by: Admin: 03/27/19 06:18 Dose: Not Given Documented by: Admin: 03/27/19 00:03 Dose: Not Given Documented by: Admin: 03/26/19 19:25 Dose: Not Given Documented by: KAYY Ondansetron HCl (Zofran) 4 mg IV Q4HP PRN; Protocol PRN Reason: Nausea/Vomiting Last Admin: 03/27/19 03:33 Dose: 4 mg Documented by: KAYY Shift Summary 03/28/19 04:27 Shift Summary by Shantelle Slaughter Pt is A&Ox4. Hx A-fib, CHF, CKD, DM. VSS. Wears CPAP at night, but did not bring it to the hospital. A family member might be bringing the CPAP today. Using 2L O2 at night for time being. Up with 1 assist, FWW, GB to BSC. Cutler catheter in place draining dark christine urine - did have some blood as well as small clots in the Cutler earlier in shift as well. Pt is currently NPO & is to have a right colectomy today. Consent not signed & also not ordered in computer yet. EKG also still needs to be read. IV to left AC w/LR @ 125 ml/hr. Receiving Zosyn Q6H. Accuchecks & Humalog Q6H. Midnight blood glucose was 115. Will update with verbal report. Initialized on 03/28/19 04:27 - END OF NOTE
--- NOTE | 2019-03-28 15:08 | XRay Report ---
CLINICAL INFORMATION:Right central venous catheter placement TECHNIQUE: AP supine portable chest x-ray COMPARISON: Previous chest x-ray dated 03/26/2019 FINDINGS:Interval placement of a right central venous catheter. Tip is in the proximal right atrium. No detectable pneumothorax on this AP, supine radiograph. Right upper lobe pulmonary parenchymal infiltrate appears new since previous examination. Pneumonia is suspected. Aspiration pneumonia is possible at this patient has been in a supine position Is cardiomegaly, unchanged. No evidence for congestive heart failure IMPRESSION: 1. Right central venous catheter with its tip in the proximal right atrium. No pneumothorax identified on AP, supine radiograph 2. Right upper lobe infiltrate consistent with pneumonia Interpreted and Authenticated by: Leonard Elder 03/28/19
[2019-03-28] MEDS ORDERED: ONDANSETRON 4 MG/2 ML VIAL IV PRN (16:57)
[2019-03-28] MEDS ORDERED: LACTATED RINGERS 1,000 ML IV SCH (16:57)
[2019-03-28] MEDS ORDERED: ACETAMINOPHEN 325 MG TABLET PO PRN (16:57)
[2019-03-28] MEDS ORDERED: DEXTROSE 50% 50 ML VIAL IV PRN (16:57)
[2019-03-28] MEDS ORDERED: HYDROmorphone 2 MG/ML VIAL IV PRN (16:57)
[2019-03-28] MEDS ORDERED: DEXTROSE 31 GM ORAL.SUSP PO PRN (16:57)
[2019-03-28] MEDS ORDERED: INSULIN LISPRO 1 UNIT/0.01 ML UNIT SQ SCH (18:00)
[2019-03-28] MEDS ORDERED: PIPERACILLIN SODIUM/TAZOBACTAM 3.375 GM in DEXTROSE 5% IN WATER 50 ML IV SCH (18:00)
== END 2019-03-28 18:42 | disposition short-term general hospital (02) | DRG 330 ==
LOC: ED 05:34 → MEDSUR 13:06 → ICU 03-28 14:36
PROVIDERS: ADMIT Family Medicine Adult Medicine; ATTEND Family Medicine Adult Medicine

== ENCOUNTER 2020-07-22 07:23 | Inpatient (IN) ==
[2020-07-22] MEDS ORDERED: 0.9 % SODIUM CHLORIDE 1,000 ML IV ONE (07:44)
[2020-07-22] MEDS ORDERED: cefTRIAXone 1 GM in DEXTROSE 5% IN WATER 50 ML IV SCH (07:45)
[2020-07-22] MEDS ORDERED: ACETAMINOPHEN 325 MG TABLET PO ONE (07:47)
[2020-07-22 08:40] LABS: POC Pro Time 12.4 sec (11.9-14.5)
[2020-07-22 08:40] LABS: POC Blood Urea Nitrogen 45 mg/dL (6-20); POC CO2 26 mmol/L (22-30); POC Calcium, Ionized 1.05 mmEq/L (1.16-1.32); POC Chloride 94 mEq/L (96-108); POC Creatinine 2.3 mg/dL (0.6-1.2); POC Glucose, Random 120 mg/dL (70-105); POC Hematocrit 30 % (41-55); POC Sodium 134 mEq/L (133-145)
[2020-07-22 09:29] LABS: Creatine Kinase 138 U/L (24-195)
[2020-07-22 09:30] LABS: ALT/SGPT 19 U/L (<40); AST/SGOT 43 U/L (<40); Albumin 2.8 gm/dL (3.2-5.2); Alkaline Phosphatase 68 U/L (39-117); Bilirubin,Total 0.7 mg/dL (0.1-1.0); Blood Urea Nitrogen 53 mg/dL (8-23); Calcium 7.9 mg/dL (8.6-10.4); Carbon Dioxide 24 mmol/L (22-30); Chloride 93 mmol/L (96-108); Globulin 2.7 gm/dL (2.2-3.7); Glomerular Filtration Rate 24; Glucose 120 mg/dL (70-105)
[2020-07-22 09:40] LABS: Alcohol, Blood < 10.0 mg/dL; Alcohol,Blood < 0.010 gm/dL (<0.010)
--- NOTE | 2020-07-22 09:41 | Cat Scan Report ---
INDICATION: fall COMPARISON: None. TECHNIQUE: Axial noncontrast-enhanced images through the brain. Sagittally and coronally reformatted images. FINDINGS: Cerebral hemispheres:Negative. No intra-axial abnormality. No intra-axial hematoma. No localized mass effect. Brain volume is within normal limits. No hydrocephalus Brainstem and cerebellum:No intra-axial abnormality Extra-axial:No acute hemorrhage. No subdural or epidural hematoma. No subarachnoid hemorrhage. Basilar cisterns are normal Calvarial:No calvarial fracture. No lytic lesion Temporal bones are negative. No destructive lesions Soft tissue, orbits, sinuses:Orbits and visualized facial soft tissues are negative. There is mucosal thickening and mild fluid within the maxillary sinuses consistent with inflammatory disease IMPRESSION: 1. No acute abnormality 2. Maxillary sinusitis The exam was performed using radiation dose optimization techniques including, but not limited to, automated exposure control, adjustment of the mA and/or kV according to patient size and use of iterative reconstruction technique. Interpreted and Authenticated by: Leonard Elder 07/22/20
--- NOTE | 2020-07-22 09:43 | XRay Report ---
INDICATION: pneumonia TECHNIQUE: AP portable upright chest x-ray COMPARISON: Previous examination dated 03/29/2019 FINDINGS:There is cardiomegaly, unchanged. There are bilateral diffuse pulmonary parenchymal infiltrates and possible bilateral pleural effusions. Appearance is consistent with congestive heart failure. Pneumonia is not excluded. The patient fell. No detectable rib fractures. There is no pneumothorax. IMPRESSION: 1. Cardiomegaly and probable congestive heart failure 2. No detectable rib fractures. No pneumothorax Interpreted and Authenticated by: Leonard Elder 07/22/20
--- NOTE | 2020-07-22 09:47 | Cat Scan Report ---
INDICATION: fall COMPARISON: None. TECHNIQUE: Axial thin section images through the cervical spine. Sagittally and coronally reformatted images. The exam was performed using radiation dose optimization techniques including, but not limited to, automated exposure control, adjustment of the mA and/or kV according to patient size and use of iterative reconstruction technique. FINDINGS: Vertebral bodies, spinous processes:No vertebral body or spinous process fracture. No acute abnormality. Alignment is anatomic without anterolisthesis Normal odontoid process. No fracture. Occipital condyles and C1 are negative. No atlantoaxial subluxation. Facets:Multilevel degenerative facet arthropathy. No facet complex fracture. No perched or locked facet. Disc spaces:Degenerative disc narrowing at C5-C6 and C6-C7 Temporal bones:Negative. No basilar skull fracture Cervical soft tissues:Negative. No prevertebral soft tissue swelling. No focal soft tissue mass or acute abnormality Lung apices:No pneumothorax. No pulmonary contusion. IMPRESSION: 1. Degenerative disc disease and facet arthropathy 2. No cervical spine fracture Interpreted and Authenticated by: Leonard Elder 07/22/20
[2020-07-22] MEDS ORDERED: DEXAMETHASONE 4 MG TABLET PO ONE (10:05)
[2020-07-22 10:10] LABS: Appearance,Urine HAZY (Clear); Bilirubin,Urine Negative (Negative); Color,Urine YELLOW; Culture Indicated,Urine No; Glucose,Urine (UA) Negative (Negative); Ketones,Urine Negative (Negative); Leukocyte Esterase,Urine Negative /ug (Negative); Mucus,Urine FEW /hpf; Nitrate,Urine Negative (Negative); Protein,Urine 30 mg/dL (Negative); Specific Gravity,Urine 1.011 (1.000-1.035); Urine Blood Negative (Negative); Urine Granular Cast 14 /lph (0-0); Urine Hyaline Cast 1 /lph (0-2); Urine RBC < 1 /hpf (0-3); Urine Squamous Epithelial Cell 0 /hpf (0-4); Urine WBC 1 /hpf (0-4); Urobilinogen,Urine Negative
[2020-07-22 10:28] LABS: Basophils # (Auto) 0.01 K/mcL (0.00-0.20); Basophils % (Auto) 0.2 % (0.0-2.0); Eosinophils # (Auto) 0 K/mcL (0.00-0.70); Eosinophils % (Auto) 0 % (0.0-7.0); Hematocrit 30.8 % (41.0-55.0); Hemoglobin 9.2 g/dL (13.5-16.5); Lymphocytes # (Auto) 0.35 K/mcL (1.50-4.80); Lymphocytes % (Auto) 7.7 % (15.0-49.0); Mean Corpuscular HGB Conc 29.9 g/dL (31.0-36.0); Monocytes # (Auto) 0.27 K/mcL (0.10-0.90); Monocytes % (Auto) 5.9 % (1.0-12.0); Neutrophils % (Auto) 86.2 % (38.0-78.0); Platelet Count 100 K/mcL (140-440); RBC 3.95 M/mcL (4.50-5.90); Red Cell Distribution Width 29.3 % (11.5-14.5); WBC 4.6 K/mcL (4.5-11.0)
--- NOTE | 2020-07-22 10:58 | Internal Med History&Physical ---
HPI History of Present Illness Patient information: Note initiated : 07/22/20 at 10:57 am Service Date, if different from initiated Date: [] Patient: Honorio Byrd a 89 y/o M admitted on for shortness of breath. Chief Complaint: [] History of present illness: Mr. Byrd is a 89 year old M with a history of cecal carcinoma/A. fib/chronic kidney disease Who presents to the ER following a fall due to increasing weakness. Patient has noticed worsening shortness of breath progressing over the last few days. He denies sick contacts, taking excessive salt diet, yellow productive sputum, NSAID intake. He is become increasingly weak and has not been able to perform activities of daily living. This evening he fell walking to the bathroom unable to get up due to profound weakness. Subsequently EMS was called and was brought into the hospital profoundly hypoxemic. Initial work-up was consistent with hypoxia on presentation with sats below 80, bilateral chest infiltrates consistent with Covid pneumonia along with COVID-19 positive. Patient was started on dexamethasone and subsequently hospitalist service was consulted. At the time of my evaluation patient is alert and able to answer most the questions. Endorses history as above. Denies shaking chills, diarrhea, dysuria, unilateral weakness. He denies active distress but endorses generalized malaise. 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) Hypoxemia (Chronic) Pulmonary arterial hypertension (Chronic) MCC (current) use of anticoagulants (Chronic) Morbid obesity (Chronic) 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) Abdominal pain (Acute) Fever (Acute) Mass of cecum (Acute) Abnormal ECG (Acute) Mass of cecum (Acute) Partial small bowel obstruction (Acute) Acute kidney injury superimposed on chronic kidney disease (Acute) 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) Goals of care, counseling/discussion (Acute) CKD (chronic kidney disease), stage IV (Acute) Anemia (Acute) CKD stage G4/A2, GFR 15-29 and albumin creatinine ratio 30-299 mg/g (Acute) 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) Iron deficiency anemia due to chronic blood loss (Acute) COVID-19 (Acute) Acute hypoxemic respiratory failure (Acute) Medical History (Updated 07/22/20 @ 11:00 by Duarte Richards DO) Abdominal wall hernia Anasarca 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 Atrial fibrillation Rate controlled, no anticoagulation as risk outweighs benefit Cardiomegaly Chronic kidney disease, stage III (moderate) 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 Dependence on nocturnal oxygen therapy Diabetes mellitus, type II Edema History of gout Hyperlipidemia Hyperparathyroidism due to renal insufficiency Will check PTH calcium and phosphorus Hypertension Hypertensive renal disease Hypoxemia MCC (current) use of anticoagulants Warfarin has been discontinued Morbid obesity KACI on CPAP Peripheral vascular disease Pulmonary arterial hypertension Surgical History History of biopsy (06/21/14) abdominal wall biopsy; 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 no further intervention at this point will cancel surgery referral History of hernia surgery NOS 1947 History of tonsillectomy History of transurethral resection of prostate S/P cataract extraction 2016 Family History Unknown No family history of kidney disease no family history of endocrine disease Father Malignant neoplasm Social History (Updated 07/22/19 @ 13:30 by Cora Bentley MD) household members: significant other marital status: alcohol intake frequency: holiday/special occasion only MEDS/ALLERGIES Home Medications and Allergies Home Medications Medication Instructions Recorded Confirmed Type cyanocobalamin (vitamin B-12) 1,000 mcg PO QDAY tab 08/16/14 07/22/20 History 1,000 mcg tablet furosemide 20 mg tablet 40 mg PO BID tab 12/23/18 07/22/20 History metoprolol tartrate 25 mg tablet 12.5 mg PO QDAY #90 tab 09/24/19 07/22/20 Rx darbepoetin arnol in polysorbat 100 100 mcg SUBCUT .Q 2 Months ml 06/19/20 07/22/20 History mcg/0.5 mL in polysorbate injection syringe iron 150 mg-vit C 60 mg-folate 1 1 tab PO QDAY #30 tab 06/19/20 07/22/20 Rx [id number] tablet Allergies Allergy/AdvReac Type Severity Reaction Status Date / Time No Known Drug Allergies Allergy Verified 06/19/20 10:30 EXAM Constitutional Vitals: Temp Pulse Resp BP Pulse Ox 100.4 F H 81 23 H 129/82 100 07/22/20 07:38 07/22/20 10:31 07/22/20 10:31 07/22/20 10:31 07/22/20 10:31 Alert but anxious Head normocephalic Oral cavity moist No ear or nose discharge Eye no subconjunctival pallor, movement symmetrical S1-S2 occasionally irregular, frequent PACs/bundle branch Labored breathing on 2 L oxygen Nondistended nontender abdomen Lower extremity lymphedema noted, no cyanosis clubbing or joint swelling Skin no suspicious lesion Psych anxious but no hallucination Neuro normal higher function on limited neuro exam DATA Data Completed and Pending Labs: Labs from last 24 hours 07/22/20 07/22/20 07/22/20 09:11 08:25 08:25 WBC 4.6 RBC 3.95 L Hgb 9.2 L Hct 30.8 L POC Hct 30 L MCV 78.0 L MCH 23.3 L MCHC 29.9 L RDW 29.3 H Plt Count 100 L MPV Neut % (Auto) 86.2 H Lymph % (Auto) 7.7 L [place] % (Auto) 5.9 Eos % (Auto) 0 Baso % (Auto) 0.2 Lymph # (Auto) 0.35 L [place] # (Auto) 0.27 Eos # (Auto) 0 Baso # (Auto) 0.01 Absolute Neutrophils 3.92 POC PT POC INR POC Sodium 134 Sodium 131 L POC Potassium 3.0 L Potassium 3.1 L POC Chloride 94 L Chloride 93 L Carbon Dioxide 24 POC Total CO2 26 Anion Gap 14.0 POC BUN 45 H BUN 53 H Creatinine 2.3 H POC Creatinine 2.3 H GFR Calculation 24 Glucose 120 H POC Glucose 120 H Calcium 7.9 L POC WB Ioniz Calcium 1.05 L Total Bilirubin 0.7 AST 43 H ALT 19 Alkaline Phosphatase 68 Total Creatine Kinase 138 NT-Pro-B Natriuret Pep 61872.0 H Total Protein 5.5 L Albumin 2.8 L Globulin 2.7 Albumin/Globulin Ratio 1.0 Urine Color Yellow Urine Appearance Hazy A Urine pH 5.0 Ur Specific [place] 1.011 Urine Protein 30 A Urine Glucose (UA) Negative Urine Ketones Negative Urine Occult Blood Negative Urine Nitrate Negative Urine Bilirubin Negative Urine Urobilinogen Negative Ur Leukocyte Esterase Negative Urine RBC < 1 Urine WBC 1 Ur Squamous Epith Cells 0 Urine Bacteria None Hyaline Casts 1 Granular Casts 14 H Urine Mucus Few A Ur Culture Indicated? No Ethyl Alcohol 07/22/20 07/22/20 08:23 08:23 WBC RBC Hgb Hct POC Hct MCV MCH MCHC RDW Plt Count MPV Neut % (Auto) Lymph % (Auto) [place] % (Auto) Eos % (Auto) Baso % (Auto) Lymph # (Auto) [place] # (Auto) Eos # (Auto) Baso # (Auto) Absolute Neutrophils POC PT 12.4 POC INR 1.0 POC Sodium Sodium POC Potassium Potassium POC Chloride Chloride Carbon Dioxide POC Total CO2 Anion Gap POC BUN BUN Creatinine POC Creatinine GFR Calculation Glucose POC Glucose Calcium POC WB Ioniz Calcium Total Bilirubin AST ALT Alkaline Phosphatase Total Creatine Kinase NT-Pro-B Natriuret Pep Total Protein Albumin Globulin Albumin/Globulin Ratio Urine Color Urine Appearance Urine pH Ur Specific [place] Urine Protein Urine Glucose (UA) Urine Ketones Urine Occult Blood Urine Nitrate Urine Bilirubin Urine Urobilinogen Ur Leukocyte Esterase Urine RBC Urine WBC Ur Squamous Epith Cells Urine Bacteria Hyaline Casts Granular Casts Urine Mucus Ur Culture Indicated? Ethyl Alcohol < 0.010 A/P Narrative A/P Narrative: * COVID-19 pneumonia-Inpt admission/initiate dexamethasone, thrombosis prophylaxis/coag and inflammatory markers, maintain COVID-19 precautions,Low GFR precludes remdesivir * Acute hypoxic respiratory failure secondary to Covid pneumonia. Continue with low flow oxygen/pulmonary toilet/ Prone ventilation and transition to noninvasive mechanical ventilation if deteriorating status/worsening oxygenation on ABG/interval chest imaging * ADHF-acute pulmonary edema noted on imaging, check echo/Diuresis. Optimize CHF management based on echo finding * CKD stage IIIb managed by nephrology. Creatinine 2.3 around baseline * Afib, Not on anticoagulation due to high risk of bleed(cecal cancer) * Nonobstructing cecal carcinoma nonoperative(discharged from [facility] in March * Multifactorial anemia managed by nephrology Dr. Jenkins Plan * Inpatient admission * Low flow supplemental oxygen * Serial imaging/ABG/coag inflammatory markers * dexamethasone/empiric antibiotics/thrombosis prophylaxis * Aggressive diuresis * Echocardiogram * Pre-existing medical condition management home meds * Directed therapies/nutrition support/early mobilization * Discharge planning Time Spent With Patient Time: Total time spent is greater than 50% in coordination of care (as documented) at patient's floor/unit and/or counseling patient:
--- NOTE | 2020-07-22 11:00 | Emergency Department Note ---
HPI General Chief complaint: Shortness of Breath/Dyspnea Stated complaint: shortness of breath Time Seen by Provider: 07/22/20 07:44 Source: patient Mode of arrival: EMS Limitations: no limitations History of Present Illness HPI Narrative: Patient is an 89-year-old gentleman who arrives emergency department by ambulance complaining of a fall. History is provided by the patient and paramedics. The patient says he got up last night to go to the bathroom but is uncertain what time. He does note that he went to bed around 7:30 PM. He fell walking to the bathroom and felt too weak to get up off the ground. Family members eventually found him and called 911. Paramedics and transported him to the hospital. They found to be hypoxemic with a pulse ox in the mid 80s on room air and applied supplemental oxygen via nasal cannula. Patient currently notes that he has been experiencing a cough for the past codie ral days. He otherwise has no physical complaints at this time besides feeling generalized weakness. Nothing seems to make his symptoms any better or worse. Related Data Home Medications Medication Instructions Recorded Confirmed cyanocobalamin (vitamin B-12) 1,000 mcg PO QDAY tab 08/16/14 06/19/20 1,000 mcg tablet furosemide 20 mg tablet 40 mg PO BID tab 12/23/18 06/19/20 budesonide-formoterol 2 puff IH Q12 03/26/19 06/19/20 darbepoetin arnol in polysorbat 100 100 mcg SUBCUT .Q 2 Months ml 06/19/20 06/19/20 mcg/0.5 mL in polysorbate injection syringe Previous Rx's Medication Instructions Recorded metoprolol tartrate 25 mg tablet 12.5 mg PO QDAY #90 tab 09/24/19 iron 150 mg-vit C 60 mg-folate 1 1 tab PO QDAY #30 tab 06/19/20 [id number] tablet Allergies Allergy/AdvReac Type Severity Reaction Status Date / Time No Known Drug Allergies Allergy Verified 06/19/20 10:30 Review of Systems ROS ROS Narrative: Narrative: All systems ED: reviewed and negative except as stated. Constitutional: Denies fever and chills Cardiovascular: Denies chest pain PFSH Narrative Patient History Narrative: Patient lives with his daughter and son-in-law. 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) Hypoxemia (Chronic) Pulmonary arterial hypertension (Chronic) custodial (current) use of anticoagulants (Chronic) Morbid obesity (Chronic) 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) Abdominal pain (Acute) Fever (Acute) Mass of cecum (Acute) Abnormal ECG (Acute) Mass of cecum (Acute) Partial small bowel obstruction (Acute) Acute kidney injury superimposed on chronic kidney disease (Acute) 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) Goals of care, counseling/discussion (Acute) CKD (chronic kidney disease), stage IV (Acute) Anemia (Acute) CKD stage G4/A2, GFR 15-29 and albumin creatinine ratio 30-299 mg/g (Acute) 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) Iron deficiency anemia due to chronic blood loss (Acute) COVID-19 (Acute) Acute hypoxemic respiratory failure (Acute) Medical History (Updated 07/22/20 @ 11:00 by Duarte Richards DO) Abdominal wall hernia Anasarca 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 Atrial fibrillation Rate controlled, no anticoagulation as risk outweighs benefit Cardiomegaly Chronic kidney disease, stage III (moderate) 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 Dependence on nocturnal oxygen therapy Diabetes mellitus, type II Edema History of gout Hyperlipidemia Hyperparathyroidism due to renal insufficiency Will check PTH calcium and phosphorus Hypertension Hypertensive renal disease Hypoxemia custodial (current) use of anticoagulants Warfarin has been discontinued Morbid obesity KACI on CPAP Peripheral vascular disease Pulmonary arterial hypertension Surgical History History of biopsy (06/21/14) abdominal wall biopsy; 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 no further intervention at this point will cancel surgery referral History of hernia surgery NOS 1947 History of tonsillectomy History of transurethral resection of prostate S/P cataract extraction 2016 Family History Unknown No family history of kidney disease no family history of endocrine disease Father Malignant neoplasm Social History Smoking Status: Former smoker Alcohol Intake Frequency: holiday/special occasion only Exam Narrative Narrative: Gen -patient is awake and alert and in no acute distress. HEENT -head is atraumatic. There is no conjunctival pallor or scleral icterus. Cervical spine is nontender to palpation CV -S1-S2 regular rate and rhythm. Resp -breathing is nonlabored. There is no cyanosis. Lungs have mild rhonchi bilaterally Derm -skin is warm and dry. MSK -present extremities are atraumatic. Psych -patient has appropriate affect. Neuro -patient gives vague but generally appropriate answers to questions. He is oriented to person place time and situation. There is no dysarthria or aphasia. There is no facial muscular asymmetry. Extraocular motion is intact. Tongue protrudes in the midline. Palate elevates symmetrically. Shoulder shrug is symmetric. Muscle strength is 5 out of 5 in all 4 extremities. Peripheral sensation is grossly intact to light touch bilaterally. There is no falb-ha-pzme abnormality. There is no csznhu-bh-medq abnormality. General Limitations: no limitations Course Vital Signs Vital signs: Vital Signs Pulse Rate 82 07/22/20 07:37 Respiratory Rate 20 07/22/20 07:37 Blood Pressure 101/64 07/22/20 07:37 Pulse Oximetry (%) 97 07/22/20 07:37 Temperature 100.4 F H 07/22/20 07:38 Pulse Rate 81 07/22/20 10:31 Respiratory Rate 23 H 07/22/20 10:31 Blood Pressure 129/82 07/22/20 10:31 Pulse Oximetry (%) 100 07/22/20 10:31 [facility] Narrative Medical decision making narrative: Patient presents with a fall and generalized weakness. He is mildly hypoxemic but this improved with supplemental oxygen. Labs remarkable for baseline renal function and no significant electrolyte derangements. X-ray reveals patchy bilateral infiltrates consistent with Covid pneumonia and the patient's Covid test is positive. He was given Decadron for this. I discussed the test results with the patient. Given his hypoxemia I recommended admission for further treatment and he is agreeable. I also had a discussion about his wishes for resuscitative measures. He does not want to be intubated or placed on mechanical ventilator. If he experience cardiac arrest he does not want CPR. I discussed the patient's history examination and diagnostic findings with Dr. Swift, who agrees with the plan of care and accepts admission. Critical care time I provided at least 32 minutes of critical care time. This was separate from any separately billable procedures. The patient was given dexamethasone to treat his Covid pneumonia. He was given supplemental oxygen to treat his hypoxemic respiratory failure.. The patient was closely monitored for response to treatment and stability of vital signs throughout their emergency department stay. Lab Data Lab results reviewed: Yes I reviewed the patient's lab results. Result diagrams: 07/22/20 08:25 07/22/20 08:25 Labs: Lab Results 07/22/20 07/22/20 07/22/20 Range/Units 08:23 08:23 08:25 WBC 4.6 (4.5-11.0) K/mcL RBC 3.95 L (4.50-5.90) M/mcL Hgb 9.2 L (13.5-16.5) g/dL Hct 30.8 L (41.0-55.0) % POC Hct (41-55) % MCV 78.0 L (80.0-100.0) fL MCH 23.3 L (26.0-34.0) pg MCHC 29.9 L (31.0-36.0) g/dL RDW 29.3 H (11.5-14.5) % Plt Count 100 L (140-440) K/mcL MPV (7.4-10.4) fL Neut % (Auto) 86.2 H (38.0-78.0) % Lymph % (Auto) 7.7 L (15.0-49.0) % [place] % (Auto) 5.9 (1.0-12.0) % Eos % (Auto) 0 (0.0-7.0) % Baso % (Auto) 0.2 (0.0-2.0) % Lymph # (Auto) 0.35 L (1.50-4.80) K/mcL [place] # (Auto) 0.27 (0.10-0.90) K/mcL Eos # (Auto) 0 (0.00-0.70) K/mcL Baso # (Auto) 0.01 (0.00-0.20) K/mcL Absolute Neutrophils 3.92 (1.80-8.00) K/mcL POC PT 12.4 (11.9-14.5) sec POC INR 1.0 (0.8-1.2) POC Sodium (133-145) mEq/L Sodium (133-145) mmol/L POC Potassium (3.3-5.1) mEql/L Potassium (3.3-5.1) mmol/L POC Chloride (96-108) mEq/L Chloride (96-108) mmol/L Carbon Dioxide (22-30) mmol/L POC Total CO2 (22-30) mmol/L Anion Gap (8.0-16.0) POC BUN (6-20) mg/dL BUN (8-23) mg/dL Creatinine (0.7-1.2) mg/dL POC Creatinine (0.6-1.2) mg/dL GFR Calculation Glucose (70-105) mg/dL POC Glucose (70-105) mg/dL Calcium (8.6-10.4) mg/dL POC WB Ioniz Calcium (1.16-1.32) mmEq/L Total Bilirubin (0.1-1.0) mg/dL AST (<40) U/L ALT (<40) U/L Alkaline Phosphatase (39-117) U/L Total Creatine Kinase (24-195) U/L NT-Pro-B Natriuret Pep (<450.0) pg/mL Total Protein (5.9-8.4) gm/dL Albumin (3.2-5.2) gm/dL Globulin (2.2-3.7) gm/dL Albumin/Globulin Ratio (1.0-2.3) Urine Color Urine Appearance (Clear) Urine pH (5.0-9.0) Ur Specific [place] (1.000-1.035) Urine Protein (Negative) mg/dL Urine Glucose (UA) (Negative) mg/dL Urine Ketones (Negative) mg/dL Urine Occult Blood (Negative) mg/dL Urine Nitrate (Negative) Urine Bilirubin (Negative) mg/dL Urine Urobilinogen mg/dL Ur Leukocyte Esterase (Negative) /ug Urine RBC (0-3) /hpf Urine WBC (0-4) /hpf Ur Squamous Epith Cells (0-4) /hpf Urine Bacteria (0) /hpf Hyaline Casts (0-2) /lph Granular Casts (0-0) /lph Urine Mucus (None) /hpf Ur Culture Indicated? Ethyl Alcohol < 0.010 (<0.010) gm/dL 07/22/20 07/22/20 Range/Units 08:25 09:11 WBC (4.5-11.0) K/mcL RBC (4.50-5.90) M/mcL Hgb (13.5-16.5) g/dL Hct (41.0-55.0) % POC Hct 30 L (41-55) % MCV (80.0-100.0) fL MCH (26.0-34.0) pg MCHC (31.0-36.0) g/dL RDW (11.5-14.5) % Plt Count (140-440) K/mcL MPV (7.4-10.4) fL Neut % (Auto) (38.0-78.0) % Lymph % (Auto) (15.0-49.0) % [place] % (Auto) (1.0-12.0) % Eos % (Auto) (0.0-7.0) % Baso % (Auto) (0.0-2.0) % Lymph # (Auto) (1.50-4.80) K/mcL [place] # (Auto) (0.10-0.90) K/mcL Eos # (Auto) (0.00-0.70) K/mcL Baso # (Auto) (0.00-0.20) K/mcL Absolute Neutrophils (1.80-8.00) K/mcL POC PT (11.9-14.5) sec POC INR (0.8-1.2) POC Sodium 134 (133-145) mEq/L Sodium 131 L (133-145) mmol/L POC Potassium 3.0 L (3.3-5.1) mEql/L Potassium 3.1 L (3.3-5.1) mmol/L POC Chloride 94 L (96-108) mEq/L Chloride 93 L (96-108) mmol/L Carbon Dioxide 24 (22-30) mmol/L POC Total CO2 26 (22-30) mmol/L Anion Gap 14.0 (8.0-16.0) POC BUN 45 H (6-20) mg/dL BUN 53 H (8-23) mg/dL Creatinine 2.3 H (0.7-1.2) mg/dL POC Creatinine 2.3 H (0.6-1.2) mg/dL GFR Calculation 24 Glucose 120 H (70-105) mg/dL POC Glucose 120 H (70-105) mg/dL Calcium 7.9 L (8.6-10.4) mg/dL POC WB Ioniz Calcium 1.05 L (1.16-1.32) mmEq/L Total Bilirubin 0.7 (0.1-1.0) mg/dL AST 43 H (<40) U/L ALT 19 (<40) U/L Alkaline Phosphatase 68 (39-117) U/L Total Creatine Kinase 138 (24-195) U/L NT-Pro-B Natriuret Pep 18876.0 H (<450.0) pg/mL Total Protein 5.5 L (5.9-8.4) gm/dL Albumin 2.8 L (3.2-5.2) gm/dL Globulin 2.7 (2.2-3.7) gm/dL Albumin/Globulin Ratio 1.0 (1.0-2.3) Urine Color Yellow Urine Appearance Hazy A (Clear) Urine pH 5.0 (5.0-9.0) Ur Specific [place] 1.011 (1.000-1.035) Urine Protein 30 A (Negative) mg/dL Urine Glucose (UA) Negative (Negative) mg/dL Urine Ketones Negative (Negative) mg/dL Urine Occult Blood Negative (Negative) mg/dL Urine Nitrate Negative (Negative) Urine Bilirubin Negative (Negative) mg/dL Urine Urobilinogen Negative mg/dL Ur Leukocyte Esterase Negative (Negative) /ug Urine RBC < 1 (0-3) /hpf Urine WBC 1 (0-4) /hpf Ur Squamous Epith Cells 0 (0-4) /hpf Urine Bacteria None (0) /hpf Hyaline Casts 1 (0-2) /lph Granular Casts 14 H (0-0) /lph Urine Mucus Few A (None) /hpf Ur Culture Indicated? No Ethyl Alcohol (<0.010) gm/dL ED POC Tests ED POC Tests: [place] - SARS Antigen Positive EKG Data EKG #1: EKG attestation: Yes I reviewed and interpreted this EKG. EKG results narrative: EKG performed at 7:45 AM: Atrial fibrillation, rate 83. Right bundle branch block. There is [address] depression in V3 through V5. T waves are inverted in V3 through V5. Normal QTC duration. No old EKG immediately available for comparison. There are some ST depressions and T wave inversions of uncertain significance given the patient's clinical presentation. EKG was interpreted by me. Discharge Plan Patient/Caregiver Discharge Instructions Pt seen by [facility] [employer] PERSON/PA only: No Clinical Impression: COVID-19, Acute hypoxemic respiratory failure Patient Disposition: Xfer As Inpt ([facility]) Condition: Fair Follow up with: Vinnie Gresham MD [Primary Care Provider] - Prescriptions: No Action cyanocobalamin (vitamin B-12) 1,000 mcg tablet 1,000 mcg PO QDAY RF: 0 metoprolol tartrate 25 mg tablet 12.5 mg PO QDAY Qty: 90 RF: 2 Niferex (Sumalate-Quatrefolic) 150 mg iron- 60 mg-1 mg tablet 1 tab PO QDAY Qty: 30 RF: 0 Aranesp (in polysorbate) 100 mcg/0.5 mL syringe 100 mcg subcut .Q 2 Months RF: 0 furosemide 20 mg tablet 40 mg PO BID RF: 0 budesonide-formoterol 10.2 GM HFA aerosol inhaler 2 puff IH Q12 RF: 0
[2020-07-22] MEDS ORDERED: MELATONIN 3 MG TABLET PO PRN (16:00)
[2020-07-22] MEDS ORDERED: ACETAMINOPHEN 325 MG TABLET PO PRN (16:00)
[2020-07-22] MEDS ORDERED: POTASSIUM CHLORIDE 40 MEQ in DEXTROSE 5% IN WATER 500 ML IV PRN (16:00)
[2020-07-22] MEDS ORDERED: ONDANSETRON 4 MG/2 ML VIAL IV PRN (16:00)
[2020-07-22] MEDS ORDERED: MAGNESIUM SULFATE 2 GM/50 ML BAG IV PRN (16:00)
[2020-07-22] MEDS ORDERED: ACETAMINOPHEN 650 MG/65 ML BAG IV PRN (16:00)
[2020-07-22] MEDS ORDERED: POLYETHYLENE GLYCOL 3350 17 GM PACKET PO PRN (16:00)
[2020-07-22] MEDS ORDERED: NEUTRA PHOS 1 PACKET PO PRN (16:00)
[2020-07-22] MEDS ORDERED: ALBUTEROL SULFATE 200 PUFF INHALER INH PRN (16:00)
[2020-07-22] MEDS ORDERED: BISACODYL 10 MG SUPP.RECT PR PRN (16:00)
[2020-07-22] MEDS ORDERED: ONDANSETRON 4 MG ODT TABLET SL PRN (16:00)
[2020-07-22 16:46] LABS: Ferritin 338.2 ng/mL (30.0-400.0)
[2020-07-22] MEDS: 0.9 % SODIUM CHLORIDE 10 ML SYRINGE IV SCH ×2 (17:17→21:14)
[2020-07-22] MEDS: AZITHROMYCIN 500 MG in DEXTROSE 5% IN WATER 250 ML IV SCH (17:17)
[2020-07-22] MEDS: SENNOSIDES/DOCUSATE SODIUM 1 TAB TABLET PO SCH (21:14)
[2020-07-22] MEDS: DOCUSATE SODIUM 100 MG CAPSULE PO SCH (21:14)
[2020-07-22] MEDS: HEPARIN 5,000 UNIT/ML VIAL SQ SCH (21:15)
[2020-07-22] MEDS: FUROSEMIDE 20 MG/2 ML VIAL IV SCH (21:18)
[2020-07-23] MEDS: 0.9 % SODIUM CHLORIDE 10 ML SYRINGE IV SCH ×3 (05:49→21:31)
[2020-07-23 06:51] LABS: Basophils # (Auto) 0 K/mcL (0.00-0.20); Basophils % (Auto) 0 % (0.0-2.0); Eosinophils # (Auto) 0 K/mcL (0.00-0.70); Eosinophils % (Auto) 0 % (0.0-7.0); Hematocrit 29.4 % (41.0-55.0); Hemoglobin 9.2 g/dL (13.5-16.5); Lymphocytes % (Auto) 9.8 % (15.0-49.0); Mean Cell Volume 74.2 fL (80.0-100.0); Mean Corpuscular HGB Conc 31.3 g/dL (31.0-36.0); Monocytes # (Auto) 0.27 K/mcL (0.10-0.90); Monocytes % (Auto) 6.6 % (1.0-12.0); Neutrophils % (Auto) 83.6 % (38.0-78.0); Platelet Count 113 K/mcL (140-440); RBC 3.96 M/mcL (4.50-5.90); Red Cell Distribution Width 28.4 % (11.5-14.5); WBC 4.1 K/mcL (4.5-11.0)
[2020-07-23 07:45] LABS: ALT/SGPT 18 U/L (<40); AST/SGOT 41 U/L (<40); Albumin 2.5 gm/dL (3.2-5.2); Albumin/Globulin Ratio 0.9 (1.0-2.3); Alkaline Phosphatase 62 U/L (39-117); Bilirubin,Direct 0.4 mg/dL (<0.3); Bilirubin,Total 0.6 mg/dL (0.1-1.0); Blood Urea Nitrogen 48 mg/dL (8-23); Calcium 7.8 mg/dL (8.6-10.4); Carbon Dioxide 29 mmol/L (22-30); Chloride 99 mmol/L (96-108); Globulin 2.9 gm/dL (2.2-3.7); Glomerular Filtration Rate 31; Glucose 143 mg/dL (70-105); Lactate Dehydrogenase 367 U/L (135-225); Phosphorous 3.4 mg/dL (2.5-4.5); Triglycerides 101 mg/dL (<150); Uric Acid 11.1 mg/dL (2.5-8.0)
[2020-07-23] MEDS: cefTRIAXone 2 GM in DEXTROSE 5% IN WATER 50 ML IV SCH (08:45)
[2020-07-23] MEDS: FUROSEMIDE 20 MG/2 ML VIAL IV SCH ×2 (08:48→21:31)
[2020-07-23] MEDS: HEPARIN 5,000 UNIT/ML VIAL SQ SCH ×3 (08:49→21:31)
[2020-07-23] MEDS: DEXAMETHASONE 4 MG TABLET PO SCH (08:50)
[2020-07-23] MEDS: DOCUSATE SODIUM 100 MG CAPSULE PO SCH ×2 (08:50→21:32)
[2020-07-23] MEDS: MULTIVIT,THER IRON,CA,FA & MIN 1 TABLET PO SCH (08:50)
[2020-07-23] MEDS: AZITHROMYCIN 500 MG in DEXTROSE 5% IN WATER 250 ML IV SCH (09:15)
[2020-07-23] MEDS ORDERED: POTASSIUM CHLORIDE 20 MEQ/15 ML ML PO PRN (10:24)
--- NOTE | 2020-07-23 12:28 | EKG ---
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 Measurements Intervals [place] Rate: 83 P: ID: QRS: 46 QRSD: 128 T: -44 QT: 402 QTc: 473 Interpretive Statements Atrial fibrillation Right bundle branch block NO PRIOR TRACING FOR COMPARISON Electronically Signed On 07-23-2020 12:27:46 PDT by Benson Sanchez M.D. /[id number]
[2020-07-23] MEDS ORDERED: POTASSIUM CHLORIDE 20 MEQ TABLET PO ONE (14:52)
--- NOTE | 2020-07-23 15:02 | Internal Med Progress Note ---
SUBJECTIVE Subjective Patient information: Note initiated : 07/23/20 at 2:58 pm Service Date, if different from initiated Date: [] Patient: Honorio Byrd 89 y/o M admitted on 07/22/20 for shortness of breath. Chief Complaint: [] Interval history: History of present illness: Mr. Byrd is a 89 year old M with a history of cecal carcinoma/A. fib/chronic kidney disease Who presents to the ER following a fall due to increasing weakness. Patient has noticed worsening shortness of breath progressing over the last few days. He denies sick contacts, taking excessive salt diet, yellow productive sputum, NSAID intake. He is become increasingly weak and has not been able to perform activities of daily living. This evening he fell walking to the bathroom unable to get up due to profound weakness. Subsequently EMS was called and was brought into the hospital profoundly hypoxemic. Initial work-up was consistent with hypoxia on presentation with sats below 80, bilateral chest infiltrates consistent with Covid pneumonia along with COVID-19 positive. Patient was started on dexamethasone and subsequently hospitalist service was consulted. At the time of my evaluation patient is alert and able to answer most the questions. Endorses history as above. Denies shaking chills, diarrhea, dysuria, unilateral weakness. He denies active distress but endorses generalized malaise. Denies headache, photophobia, loss of smell or taste 6/7-patient doing better. Diuresing well. On 2 L oxygen. Using incentive spirometer and ongoing therapies. Echo EF 50%, mixed systolic/diastolic dysfunction. Pulmonary hypertension 35, continue dexamethasone/order precautions. No overnight fever chills. No concerns expressed with nursing staff. Constitutional Vitals: Vital Signs Temp Pulse Resp BP Pulse Ox 97.6 F 78 20 140/92 98 07/23/20 12:00 07/23/20 12:00 07/23/20 12:00 07/23/20 12:00 07/23/20 12:00 Period Temp Pulse Resp BP Sys/Setven Pulse Ox Last 24 Hr 96.8 F-99.2 F 61-78 17-23 103-140/68-92 95-100 Intake and Output 07/23/20 07/23/20 07/23/20 05:59 13:59 21:59 Intake Total 780 Output Total 1050 0 Balance -1050 780 Weight 105.829 kg Patient Weight 07/24/20 05:59 Weight 105.829 kg alert oriented Nonlabored breathing On 2 L oxygen Improving lymphedema Intake & Output: Intake & Output 07/23/20 07/23/20 07/23/20 05:59 13:59 21:59 Intake Total 780 Output Total 1050 0 Balance -1050 780 Weight 105.829 kg Intake: IV 300 Zithromax 500 mg In Dextrose 5% 250 in Water 250 ml @ 250 mls/hr IV Q24H [facility] Rx#:[id number] Rocephin 2 gm In Dextrose 5% in 50 Water 50 ml @ 100 mls/hr IV Q24H [facility] Rx#:[id number] Oral 480 Output: Void Amount 1050 0 Other: Meal Breakfast Percent of Meal Consumed 75% Feeding Ability Independent OBJ DATA Labs CBC & Chem 7: 07/23/20 05:59 07/23/20 05:59 Labs: Abnormal Lab Results 07/23/20 07/23/20 07/22/20 05:59 05:59 09:11 WBC 4.1 L RBC 3.96 L Hgb 9.2 L Hct 29.4 L POC Hct MCV 74.2 L MCH 23.2 L MCHC RDW 28.4 H Plt Count 113 L Neut % (Auto) 83.6 H Lymph % (Auto) 9.8 L Lymph # (Auto) 0.40 L Sodium POC Potassium Potassium 3.1 L POC Chloride Chloride POC BUN BUN 48 H Creatinine 1.9 H POC Creatinine Glucose 143 H POC Glucose Uric Acid 11.1 H Calcium 7.8 L POC WB Ioniz Calcium Direct Bilirubin 0.4 H AST 41 H Lactate Dehydrogenase 367 H C-Reactive Protein 9.40 H NT-Pro-B Natriuret Pep Total Protein 5.4 L Albumin 2.5 L Albumin/Globulin Ratio 0.9 L Procalcitonin Urine Appearance Hazy A Urine Protein 30 A Granular Casts 14 H Urine Mucus Few A 07/22/20 07/22/20 07/22/20 08:25 08:25 08:25 WBC RBC Hgb Hct POC Hct 30 L MCV MCH MCHC RDW Plt Count Neut % (Auto) Lymph % (Auto) Lymph # (Auto) Sodium 131 L POC Potassium 3.0 L Potassium 3.1 L POC Chloride 94 L Chloride 93 L POC BUN 45 H BUN 53 H Creatinine 2.3 H POC Creatinine 2.3 H Glucose 120 H POC Glucose 120 H Uric Acid Calcium 7.9 L POC WB Ioniz Calcium 1.05 L Direct Bilirubin AST 43 H Lactate Dehydrogenase C-Reactive Protein 11.30 H NT-Pro-B Natriuret Pep 52001.0 H Total Protein 5.5 L Albumin 2.8 L Albumin/Globulin Ratio Procalcitonin 1.88 H Urine Appearance Urine Protein Granular Casts Urine Mucus 07/22/20 08:25 WBC RBC 3.95 L Hgb 9.2 L Hct 30.8 L POC Hct MCV 78.0 L MCH 23.3 L MCHC 29.9 L RDW 29.3 H Plt Count 100 L Neut % (Auto) 86.2 H Lymph % (Auto) 7.7 L Lymph # (Auto) 0.35 L Sodium POC Potassium Potassium POC Chloride Chloride POC BUN BUN Creatinine POC Creatinine Glucose POC Glucose Uric Acid Calcium POC WB Ioniz Calcium Direct Bilirubin AST Lactate Dehydrogenase C-Reactive Protein NT-Pro-B Natriuret Pep Total Protein Albumin Albumin/Globulin Ratio Procalcitonin Urine Appearance Urine Protein Granular Casts Urine Mucus Meds: Medications Acetaminophen (Acetaminophen 325 Mg Tablet) 650 mg PO Q4-6HP PRN; Protocol PRN Reason: Per Pain Protocol/Fever > 101 Albuterol Sulfate (Albuterol Sulfate 200 Puff Inhaler) 1 - 2 puff INH Q4HP PRN PRN Reason: Shortness Of Breath Bisacodyl (Bisacodyl 10 Mg Supp.Rect) 10 mg MN Q2-3DAYS PRN PRN Reason: Constipation Dexamethasone (Dexamethasone 4 Mg Tablet) 6 mg PO DAILY [facility] Last Admin: 07/23/20 08:50 Dose: 6 mg Documented by: Docusate Sodium (Docusate Sodium 100 Mg Capsule) 100 mg PO BID [facility] Last Admin: 07/23/20 08:50 Dose: Not Given Documented by: Furosemide (Furosemide 20 Mg/2 Ml Vial) 20 mg IV Q8 [facility] Guaifenesin/Codeine Phosphate (Guaifenesin/Codeine 10 Ml Udc) 10 ml PO Q4HP PRN PRN Reason: Cough Heparin Sodium (Porcine) (Heparin 5,000 Unit/Ml Vial) 5,000 unit SQ Q12 [facility] Last Admin: 07/23/20 10:23 Dose: 5,000 unit Documented by: Azithromycin 500 mg/ Dextrose 250 mls @ 250 mls/hr IV Q24H [facility]; Protocol Stop: 07/24/20 16:59 Last Infusion: 07/23/20 10:35 Dose: Infused Documented by: Acetaminophen (Ofirmev) 650 mg in 65 mls @ 130 mls/hr IV Q6HP PRN; Protocol PRN Reason: Per Pain Protocol/Fever > 101 Magnesium Sulfate (Magnesium Sulfate) 2 gm in 50 mls @ 50 mls/hr IV UD PRN PRN Reason: MG = or < 1.7 Ceftriaxone Sodium 2 gm/ (Dextrose) 50 mls @ 100 mls/hr IV Q24H [facility]; Protocol Last Infusion: 07/23/20 09:16 Dose: Infused Documented by: Iron Carb/Multivit/Sales [employer]ker/Folic Acid (Multivit,Ther Iron,Ca,Fa & Min 1 Tablet) 1 tab PO DAILY [facility] Last Admin: 07/23/20 08:50 Dose: 1 tab Documented by: Melatonin (Melatonin 3 Mg Tablet) 3 mg PO HSP PRN PRN Reason: Insomnia Ondansetron HCl (Ondansetron 4 Mg Odt Tablet) 4 mg SL Q4-6HP PRN; Protocol PRN Reason: Nausea And Vomiting Ondansetron HCl (Ondansetron 4 Mg/2 Ml Vial) 4 mg IV Q4-6HP PRN; Protocol PRN Reason: Nausea And Vomiting Polyethylene Glycol (Polyethylene Glycol 3350 17 Gm Packet) 17 gm PO DAILYP PRN PRN Reason: Constipation Potassium Chloride (Potassium Chloride 20 Meq/15 Ml Ml) 20 meq PO BIDCC PRN PRN Reason: K <3.6 Potassium/Phosphorus/Sodium (Neutra Phos 1 Packet) 2 packet PO ONCE PRN PRN Reason: For phosphorus less than 2.5 Senna/Docusate Sodium (Sennosides/Docusate Sodium 1 Tab Tablet) 1 tab PO HS [facility] Last Admin: 07/22/20 21:14 Dose: Not Given Documented by: Sodium Chloride (0.9 % Sodium Chloride 10 Ml Syringe) 10 ml IV Q8 [facility] Last Admin: 07/23/20 14:49 Dose: Not Given Documented by: A/P Narrative A/P Narrative: * COVID-19 pneumonia-clinically improving on dexamethasone, maintain contact precaution * Acute hypoxic respiratory failure secondary to Covid pneumonia. Continue with low flow oxygen * ADHF-acute pulmonary edema noted on imaging, echo mixed systolic/diastolic dysfunction, continue diuresis. 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 Creatinine 1.9 * Afib, Not on anticoagulation due to high risk of bleed(cecal cancer) * Nonobstructing cecal carcinoma nonoperative(discharged from [place] in March * Multifactorial anemia managed by nephrology Dr. Jenkins Plan * Continue dexamethasone/low-flow oxygen * May discontinue empiric antibiotics in 24 hours * Pre-existing medical condition management home meds * Oral potassium replacement * Directed therapies/nutrition support/early mobilization * Discharge planning per case management Time Spent With Patient Time: Total time spent is greater than 50% in coordination of care (as documented) at patient's floor/unit and/or counseling patient: QUALITY Stroke Symptom Onset Unknown: No VTE Deep Vein Thrombosis/Pulmonary Embolism Present on Admission: No
[2020-07-23] MEDS: SENNOSIDES/DOCUSATE SODIUM 1 TAB TABLET PO SCH (21:32)
[2020-07-24] MEDS: FUROSEMIDE 20 MG/2 ML VIAL IV SCH ×2 (05:55→14:23)
[2020-07-24] MEDS: 0.9 % SODIUM CHLORIDE 10 ML SYRINGE IV SCH ×2 (05:55→14:22)
[2020-07-24 07:22] LABS: Basophils # (Auto) 0.01 K/mcL (0.00-0.20); Basophils % (Auto) 0.1 % (0.0-2.0); Eosinophils # (Auto) 0 K/mcL (0.00-0.70); Eosinophils % (Auto) 0 % (0.0-7.0); Hematocrit 31.9 % (41.0-55.0); Lymphocytes # (Auto) 0.42 K/mcL (1.50-4.80); Lymphocytes % (Auto) 3.9 % (15.0-49.0); Mean Cell Volume 73.8 fL (80.0-100.0); Mean Corpuscular HGB Conc 31.3 g/dL (31.0-36.0); Monocytes # (Auto) 0.44 K/mcL (0.10-0.90); Monocytes % (Auto) 4.1 % (1.0-12.0); Neutrophils % (Auto) 91.9 % (38.0-78.0); Platelet Count 155 K/mcL (140-440); RBC 4.32 M/mcL (4.50-5.90); Red Cell Distribution Width 28.3 % (11.5-14.5); WBC 10.7 K/mcL (4.5-11.0)
[2020-07-24 07:42] LABS: ALT/SGPT 25 U/L (<40); AST/SGOT 51 U/L (<40); Albumin 3.1 gm/dL (3.2-5.2); Albumin/Globulin Ratio 0.9 (1.0-2.3); Alkaline Phosphatase 86 U/L (39-117); Bilirubin,Direct 0.4 mg/dL (<0.3); Bilirubin,Total 0.7 mg/dL (0.1-1.0); Blood Urea Nitrogen 50 mg/dL (8-23); Calcium 8.5 mg/dL (8.6-10.4); Carbon Dioxide 26 mmol/L (22-30); Chloride 94 mmol/L (96-108); Globulin 3.6 gm/dL (2.2-3.7); Glomerular Filtration Rate 31; Glucose 184 mg/dL (70-105); Lactate Dehydrogenase 421 U/L (135-225); Phosphorous 2.3 mg/dL (2.5-4.5); Triglycerides 154 mg/dL (<150); Uric Acid 10.4 mg/dL (2.5-8.0)
--- NOTE | 2020-07-24 08:24 | XRay Report ---
CLINICAL INFORMATION: Interval Change covid Pneumonia COMPARISON: 07/22/2020 FINDINGS: Moderate cardiomegaly is unchanged. Mediastinum unremarkable. Pulmonary vessels have returned to normal in caliber. Moderate patchy infiltrates in the left mid and both lower lungs show moderate improvement in aeration compared to exam two days ago. There are only small bilateral pleural effusions IMPRESSION: Moderate patchy infiltrates in the left mid and both lower lungs compatible Covid pneumonia. Moderate improvement since exam two days prior. No evidence of CHF. Pulmonary vessels have returned to normal caliber Interpreted and Authenticated by: Leonard Gaviria 07/24/20
[2020-07-24] MEDS: guaiFENesin/CODEINE 10 ML UDC PO PRN ×2 (09:18→14:22)
[2020-07-24] MEDS: cefTRIAXone 2 GM in DEXTROSE 5% IN WATER 50 ML IV SCH (09:18)
[2020-07-24] MEDS: DEXAMETHASONE 4 MG TABLET PO SCH (09:19)
[2020-07-24] MEDS: MULTIVIT,THER IRON,CA,FA & MIN 1 TABLET PO SCH (09:19)
[2020-07-24] MEDS: HEPARIN 5,000 UNIT/ML VIAL SQ SCH (09:19)
[2020-07-24] MEDS: DOCUSATE SODIUM 100 MG CAPSULE PO SCH (09:19)
[2020-07-24] MEDS: AZITHROMYCIN 500 MG in DEXTROSE 5% IN WATER 250 ML IV SCH (10:44)
--- NOTE | 2020-07-24 12:12 | Discharge Summary ---
Discharge Provider Provider Patient information: Note initiated : 07/24/20 at 12:09 pm Service Date, if different from initiated Date: [] Patient: Honorio Byrd 89 y/o M admitted on 07/22/20 for shortness of breath. Discharge diagnosis * COVID-19 pneumonia-clinically improving on dexamethasone, discharging on home oxygen. DC dexamethasone * Acute hypoxic respiratory failure secondary to Covid pneumonia. Now on 1 L oxygen. Qualifies for home oxygen * ADHF-acute pulmonary edema noted on imaging, echo mixed systolic/diastolic dysfunction, interval resolution noted on chest imaging. 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 Creatinine 1.9 * Afib, Not on anticoagulation due to high risk of bleed(cecal cancer) * Nonobstructing cecal carcinoma nonoperative(discharged from [place] in March) * Multifactorial anemia managed by nephrology Dr. Jenkins Brief hospital course Interval history: History of present illness: Mr. Byrd is a 89 year old M with a history of cecal carcinoma/A. fib/chronic kidney disease Who presents to the ER following a fall due to increasing weakness. Patient has noticed worsening shortness of breath progressing over the last few days. He denies sick contacts, taking excessive salt diet, yellow productive sputum, NSAID intake. He is become increasingly weak and has not been able to perform activities of daily living. This evening he fell walking to the bathroom unable to get up due to profound weakness. Subsequently EMS was called and was brought into the hospital profoundly hypoxemic. Initial work-up was consistent with hypoxia on presentation with sats below 80, bilateral chest infiltrates consistent with Covid pneumonia along with COVID-19 positive. Patient was started on dexamethasone and subsequently hospitalist service was consulted. At the time of my evaluation patient is alert and able to answer most the questions. Endorses history as above. Denies shaking chills, diarrhea, dysuria, unilateral weakness. He denies active distress but endorses generalized malaise. Denies headache, photophobia, loss of smell or taste 07/23-patient doing better. Diuresing well. On 2 L oxygen. Using incentive spi rometer and ongoing therapies. Echo EF 50%, mixed systolic/diastolic dysfunction. Pulmonary hypertension 35, continue dexamethasone/order precautions. No overnight fever chills. No concerns expressed with nursing staff. 07/24-patient doing remarkably well. Stable hemodynamics. Now on 1 L oxygen. Qualifies for home oxygen. Discharging home. DC dexamethasone. DC antibiotics. Follow-up primary care physician in 7 to 10 days. No overnight fever chills or concerns per staff. Ongoing physical therapy, tolerating diet. Date of admission: 07/22/20 15:48 Discharge date: 07/24/20 Primary care physician: Baron Gresham Consults: 07/22/20 10:52 Consult to Physician [CONS] Stat Comment: Consulting Provider: Oleg Swift Reason For Exam: Physician to Consult Discharge Meds Discharge Medications Home Medications cyanocobalamin (vitamin B-12) 1,000 mcg tablet 1,000 mcg PO QDAY tab 08/16/14 [History Confirmed 07/22/20 Last Taken 07/21/20 07:00] furosemide 20 mg tablet 40 mg PO BID tab 12/23/18 [History Confirmed 07/22/20 Last Taken 07/21/20 07:00] metoprolol tartrate 25 mg tablet 12.5 mg PO QDAY #90 tab 09/24/19 [Rx Confirmed 07/22/20 Last Taken 07/21/20 07:00] darbepoetin arnol in polysorbat 100 mcg/0.5 mL in polysorbate injection syringe 100 mcg SUBCUT .Q 2 Months ml 06/19/20 [History Confirmed 07/22/20 Last Taken Unknown] iron 150 mg-vit C 60 mg-folate 1 [id number] tablet 1 tab PO QDAY #30 tab 06/19/20 [Rx Confirmed 07/22/20 Last Taken 07/21/20 07:00] COURSE Hospital Course Hospital course: . Discharge diagnosis: Covid pneumonia Time Spent with Patient Time attestation: Total time spent providing and/or coordinating discharge services: EXAM Constitutional Vitals: Temp Pulse Resp BP Pulse Ox 98.0 F 84 20 104/83 100 07/24/20 12:02 07/24/20 12:02 07/24/20 12:02 07/24/20 12:02 07/24/20 12:02 Discharge Data Data Completed and Pending Labs on day of discharge: Labs from last 24 hours 07/24/20 07/24/20 06:20 06:20 WBC 10.7 RBC 4.32 L Hgb 10.0 L Hct 31.9 L MCV 73.8 L MCH 23.1 L MCHC 31.3 RDW 28.3 H Plt Count 155 MPV Neut % (Auto) 91.9 H Lymph % (Auto) 3.9 L [place] % (Auto) 4.1 Eos % (Auto) 0 Baso % (Auto) 0.1 Lymph # (Auto) 0.42 L [place] # (Auto) 0.44 Eos # (Auto) 0 Baso # (Auto) 0.01 Absolute Neutrophils 9.86 H Sodium 133 Potassium 3.9 Chloride 94 L Carbon Dioxide 26 Anion Gap 13.0 BUN 50 H Creatinine 1.9 H GFR Calculation 31 Glucose 184 H Uric Acid 10.4 H Calcium 8.5 L Phosphorus 2.3 L Magnesium 2.2 Total Bilirubin 0.7 Direct Bilirubin 0.4 H GGT 63 H AST 51 H ALT 25 Alkaline Phosphatase 86 Lactate Dehydrogenase 421 H Total Protein 6.7 Albumin 3.1 L Globulin 3.6 Albumin/Globulin Ratio 0.9 L Triglycerides 154 H Preliminary micro results at discharge 07/22/20 08:25 Blood Culture - Preliminary Blood 07/22/20 08:23 Blood Culture - Preliminary Blood Discharge Plan Patient/Caregiver Discharge Instructions Activity: increase activity as tolerated Diet: Regular Diet Activity Restrictions/Additional Instructions: Continue home oxygen to maintain sats above 94 Follow-up PCP in 5 to 7 days Return to ER worsening fever chills shortness of breath Daily weight monitoring and take additional 40 mg Lasix if weight gain is over 4 pounds above baseline Prescriptions: Continued cyanocobalamin (vitamin B-12) 1,000 mcg tablet 1,000 mcg PO QDAY RF: 0 metoprolol tartrate 25 mg tablet 12.5 mg PO QDAY Qty: 90 RF: 2 Niferex (Sumalate-Quatrefolic) 150 mg iron- 60 mg-1 mg tablet 1 tab PO QDAY Qty: 30 RF: 0 Aranesp (in polysorbate) 100 mcg/0.5 mL syringe 100 mcg subcut .Q 2 Months RF: 0 furosemide 20 mg tablet 40 mg PO BID RF: 0 Follow Up Plan Follow up with: Vinnie Gresham MD [Primary Care Provider] - Patient Disposition: Home, Self-Care Prognosis: Fair Rehab Potential: Good I certify that the patient requires SNF services: No Overall status at discharge: patient is progressing back to baseline Discharge Orders: Discharge Order (Routine); Ordered 07/24/20 Ordered By: Oleg GARCIA VTE Deep Vein Thrombosis/Pulmonary Embolism Present on Admission: No
== END 2020-07-24 17:12 | disposition home or self-care (01) | DRG 177 ==
LOC: ED 07:23 → MEDSUR 15:48
PROVIDERS: ADMIT Internal Medicine; ATTEND Internal Medicine

== ENCOUNTER 2020-12-11 14:08 | Inpatient (IN) ==
[2020-12-11] MEDS ORDERED: 0.9 % SODIUM CHLORIDE 2,000 ML IV ONE (14:37)
[2020-12-11] MEDS ORDERED: cefTRIAXone 1 GM in DEXTROSE 5% IN WATER 50 ML IV SCH (14:45)
--- NOTE | 2020-12-11 14:47 | Emergency Department Note ---
HPI General Chief complaint: Altered Mental Status Stated complaint: altered mental status x 3 days Time Seen by Provider: 12/11/20 14:29 Source: patient and EMS Mode of arrival: EMS History of Present Illness HPI Narrative: Patient is an 89-year-old gentleman arrives emergency department by ambulance complaining of altered mental status. History is provided by the patient and report provided by paramedics and is quite limited due to his current mental status. Patient says he has been feeling fatigued and rundown for the past several days. He has also been having pain and swelling in his right elbow for several days. Staff at his assisted living facility were concerned because he was becoming increasingly lethargic today. They noted that he was started on Keflex and oxycodone yesterday. Nothing seems to make his symptoms any better or worse. Related Data Home Medications Medication Instructions Recorded Confirmed cyanocobalamin (vitamin B-12) 1,000 mcg PO QDAY tab 08/16/14 12/12/20 1,000 mcg tablet furosemide 20 mg tablet 40 mg PO BID tab 12/23/18 12/11/20 Symbicort 160 mcg INHALATION BID 12/11/20 12/11/20 acetaminophen [Tylenol] 325 mg PO Q4HP PRN 12/11/20 12/12/20 ascorbate calcium (vitamin C) 500 mg PO DAILY 12/11/20 12/12/20 bisacodyl [Dulcolax (bisacodyl)] 10 mg [place] QDAY PRN 12/11/20 12/12/20 cephalexin [Keflex] 500 mg PO TID 12/11/20 12/12/20 cholecalciferol (vitamin D3) 50 mcg PO DAILY 12/11/20 12/12/20 metoprolol tartrate 12.5 mg PO BID 12/11/20 12/11/20 oxycodone 5 mg PO Q6 PRN 12/11/20 12/11/20 sennosides [senna] 8.6 mg PO DAILY 12/11/20 12/11/20 Previous Rx's Medication Instructions Recorded iron 150 mg-vit C 60 mg-folate 1 1 tab PO QDAY #30 tab 06/19/20 [id number] tablet Allergies Allergy/AdvReac Type Severity Reaction Status Date / Time No Known Drug Allergies Allergy Verified 06/19/20 10:30 Review of Systems ROS ROS Narrative: Narrative: Limitations: ROS unobtainable due to patients medical condition [facility] Narrative Patient History Narrative: Narrative: Medical/Surgical/Family History All Active Problems (Updated 12/11/20 @ 23:16 by Nii Marin MD) CHF exacerbation (Acute) UTI (urinary tract infection) (Acute) Atrial fibrillation (Chronic) Cardiomegaly (Chronic) Diabetes mellitus, type II (Chronic) Edema (Chronic) Hyperlipidemia (Chronic) History of gout (Chronic) Hypertension (Chronic) Peripheral vascular disease (Chronic) Chronic kidney disease, stage III (moderate) (Chronic) Hypertensive renal disease (Chronic) 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) Hypoxemia (Chronic) Pulmonary arterial hypertension (Chronic) MCC (current) use of anticoagulants (Chronic) Morbid obesity (Chronic) 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) Abdominal pain (Acute) Fever (Acute) Mass of cecum (Acute) Abnormal ECG (Acute) Mass of cecum (Acute) Partial small bowel obstruction (Acute) Acute kidney injury superimposed on chronic kidney disease (Acute) 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) Goals of care, counseling/discussion (Acute) CKD (chronic kidney disease), stage IV (Acute) Anemia (Acute) CKD stage G4/A2, GFR 15-29 and albumin creatinine ratio 30-299 mg/g (Acute) 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) Iron deficiency anemia due to chronic blood loss (Acute) COVID-19 (Acute) Acute hypoxemic respiratory failure (Acute) No-show for appointment (Acute) CHF (congestive heart failure) (Acute) Cellulitis of right elbow (Acute) Abscess (Acute) Medical History (Updated 12/11/20 @ 23:16 by Nii Marin MD) Abdominal wall hernia Anasarca 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 Atrial fibrillation Rate controlled, no anticoagulation as risk outweighs benefit Cardiomegaly Chronic kidney disease, stage III (moderate) 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 Dependence on nocturnal oxygen therapy Diabetes mellitus, type II Edema History of gout Hyperlipidemia Hyperparathyroidism due to renal insufficiency Will check PTH calcium and phosphorus Hypertension Hypertensive renal disease Hypoxemia MCC (current) use of anticoagulants Warfarin has been discontinued Morbid obesity KACI on CPAP Peripheral vascular disease Pulmonary arterial hypertension Surgical History History of biopsy (06/21/14) abdominal wall biopsy; 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 no further intervention at this point will cancel surgery referral History of hernia surgery NOS 1947 History of tonsillectomy History of transurethral resection of prostate S/P cataract extraction 2016 Family History Unknown No family history of kidney disease no family history of endocrine disease Father Malignant neoplasm Social History Smoking Status: Never smoker Alcohol Intake Frequency: holiday/special occasion only Substance Use: does not use Exam Narrative Narrative: I reviewed the vital signs. Gen -patient is drowsy but arousable to verbal stimuli and in no acute distress. The patient is well groomed. HEENT -head is atraumatic. There is no conjunctival pallor or scleral icterus. Mucous membranes are dry. CV -S1-S2 bradycardic and regular. Peripheral pulses are palpable. There is no JVD. Resp -breathing is nonlabored. Lungs are clear to auscultation bilaterally. There is no cyanosis. GI - Abdomen is soft and nontender to palpation. There is no guarding or rebound tenderness. Derm -skin is warm and dry. There is no visible rash. MSK -there is moderate pitting edema bilateral lower extremities. There is erythema and palpable warmth to the soft tissues of the right upper extremity primarily around the elbow extending into the and slightly into the upper arm as well. Patient has limited range of motion at the elbow due to pain. There is no palpable effusion fluctuance or crepitus to the soft tissues. Radial pulses palpable. Palpable compartments of the arm are soft. Psych -patient has a flat affect. The patient does not appear internally stimulated. Neuro -patient provides slow and quite simple but generally appropriate answers to questions. There is no facial asymmetry. Patient moves all present extremities equally. Course Vital Signs Vital signs: Vital Signs Temperature 95.6 F L 12/11/20 14:19 Pulse Rate 50 L 12/11/20 14:19 Respiratory Rate 16 12/11/20 14:19 Blood Pressure 100/68 12/11/20 14:19 Pulse Oximetry (%) 96 12/11/20 14:19 Temperature 97.4 F 12/12/20 12:00 Pulse Rate 61 12/12/20 12:00 Respiratory Rate 14 10/27/21 12:00 Blood Pressure 110/70 12/12/20 12:00 Pulse Oximetry (%) 93 12/12/20 04:27 MDM [facility] Narrative Medical decision making narrative: Patient presents with altered mental status. He denies any focal neurologic deficits suggestive of ischemic stroke. Labs are remarkable for baseline renal dysfunction and no significant electrolyte derangements or significant hematologic derangements. On reassessment he continues to have significant pain and limited range of motion with his right elbow. Given this I was concerned for possible septic arthritis. There is no readily palpable effusion. I did speak with Dr. Tang who agreed to perform an arthrocentesis if he is able to visualize an amenable fluid pocket. Dr. Chavarria assumed care at the change of shift. He will follow up on the arthrocentesis results and disposition the patient. Lab Data Lab results reviewed: Yes I reviewed the patient's lab results. Result diagrams: 12/12/20 05:52 12/12/20 05:52 Labs: Lab Results 12/11/20 12/11/20 12/11/20 Range/Units 15:00 15:00 15:00 WBC 9.6 (4.5-11.0) K/mcL RBC 4.39 L (4.63-6.08) M/mcL Hgb 10.8 L (13.7-17.5) g/dL Hct 35.1 L (40.1-51.0) % POC Hct 40 L (41-55) % MCV 80.0 (80.0-100.0) fL MCH 24.6 L (26.0-34.0) pg MCHC 30.8 L (31.0-36.0) g/dL RDW 20.7 H (11.5-14.5) % Plt Count 174 (140-440) K/mcL MPV 10.4 (7.4-10.4) fL Neut % (Auto) 88.7 H (38.0-78.0) % Lymph % (Auto) 5.3 L (15.5-49.0) % [place] % (Auto) 5.4 (1.0-12.0) % Eos % (Auto) 0.4 (0.0-7.0) % Baso % (Auto) 0.2 (0.0-2.0) % Lymph # (Auto) 0.51 L (1.50-4.80) K/mcL [place] # (Auto) 0.52 (0.10-0.90) K/mcL Eos # (Auto) 0.04 (0.00-0.70) K/mcL Baso # (Auto) 0.02 (0.00-0.30) K/mcL Absolute Neutrophils 8.49 H (1.80-8.00) K/mcL POC Sodium 141 (133-145) mEq/L Sodium 141 (133-145) mmol/L POC Potassium 3.7 (3.3-5.1) mEql/L Potassium 4.2 (3.3-5.1) mmol/L POC Chloride 106 (96-108) mEq/L Chloride 103 (96-108) mmol/L Carbon Dioxide 22 (22-30) mmol/L POC Total CO2 25 (22-30) mmol/L Anion Gap 16.0 (8.0-16.0) POC BUN 54 H (6-20) mg/dL BUN 57 H (8-23) mg/dL Creatinine 1.9 H (0.7-1.2) mg/dL POC Creatinine 2.1 H (0.6-1.2) mg/dL GFR Calculation 31 Glucose 70 (70-105) mg/dL POC Glucose 72 (70-105) mg/dL Calcium 9.6 (8.6-10.4) mg/dL POC WB Ioniz Calcium 1.08 L (1.16-1.32) mmEq/L Total Bilirubin 1.5 H (0.1-1.0) mg/dL AST 38 (<40) U/L ALT 28 (<40) U/L Alkaline Phosphatase 114 (39-117) U/L NT-Pro-B Natriuret Pep 97889.0 H (<450.0) pg/mL Total Protein 6.9 (5.9-8.4) gm/dL Albumin 3.6 (3.2-5.2) gm/dL Globulin 3.3 (2.2-3.7) gm/dL Albumin/Globulin Ratio 1.1 (1.0-2.3) Urine Color Urine Appearance (Clear) Urine pH (5.0-9.0) Ur Specific Blaine (1.000-1.035) Urine Protein (Negative) mg/dL Urine Glucose (UA) (Negative) mg/dL Urine Ketones (Negative) mg/dL Urine Occult Blood (Negative) mg/dL Urine Nitrate (Negative) Urine Bilirubin (Negative) mg/dL Urine Urobilinogen mg/dL Ur Leukocyte Esterase (Negative) /uL Urine RBC (0-3) /hpf Urine WBC (0-4) /hpf Ur Squamous Epith Cells (0-4) /hpf Urine Bacteria (0) /hpf Ur Culture Indicated? Synovial Source Synovial Color Synovial Appearance Synovial Nuc Cells /cumm Synovial Neutrophils (0-25) % Synovial Lymphocytes % Synovial Other Cells % Synovial Uric Acid (0.0-6.0) mg/dL 12/11/20 12/11/20 Range/Units 16:30 19:11 WBC (4.5-11.0) K/mcL RBC (4.63-6.08) M/mcL Hgb (13.7-17.5) g/dL Hct (40.1-51.0) % POC Hct (41-55) % MCV (80.0-100.0) fL MCH (26.0-34.0) pg MCHC (31.0-36.0) g/dL RDW (11.5-14.5) % Plt Count (140-440) K/mcL MPV (7.4-10.4) fL Neut % (Auto) (38.0-78.0) % Lymph % (Auto) (15.5-49.0) % [place] % (Auto) (1.0-12.0) % Eos % (Auto) (0.0-7.0) % Baso % (Auto) (0.0-2.0) % Lymph # (Auto) (1.50-4.80) K/mcL [place] # (Auto) (0.10-0.90) K/mcL Eos # (Auto) (0.00-0.70) K/mcL Baso # (Auto) (0.00-0.30) K/mcL Absolute Neutrophils (1.80-8.00) K/mcL POC Sodium (133-145) mEq/L Sodium (133-145) mmol/L POC Potassium (3.3-5.1) mEql/L Potassium (3.3-5.1) mmol/L POC Chloride (96-108) mEq/L Chloride (96-108) mmol/L Carbon Dioxide (22-30) mmol/L POC Total CO2 (22-30) mmol/L Anion Gap (8.0-16.0) POC BUN (6-20) mg/dL BUN (8-23) mg/dL Creatinine (0.7-1.2) mg/dL POC Creatinine (0.6-1.2) mg/dL GFR Calculation Glucose (70-105) mg/dL POC Glucose (70-105) mg/dL Calcium (8.6-10.4) mg/dL POC WB Ioniz Calcium (1.16-1.32) mmEq/L Total Bilirubin (0.1-1.0) mg/dL AST (<40) U/L ALT (<40) U/L Alkaline Phosphatase (39-117) U/L NT-Pro-B Natriuret Pep (<450.0) pg/mL Total Protein (5.9-8.4) gm/dL Albumin (3.2-5.2) gm/dL Globulin (2.2-3.7) gm/dL Albumin/Globulin Ratio (1.0-2.3) Urine Color Yellow Urine Appearance Hazy A (Clear) Urine pH 5.0 (5.0-9.0) Ur Specific Blaine 1.010 (1.000-1.035) Urine Protein Negative (Negative) mg/dL Urine Glucose (UA) Negative (Negative) mg/dL Urine Ketones Negative (Negative) mg/dL Urine Occult Blood Negative (Negative) mg/dL Urine Nitrate Negative (Negative) Urine Bilirubin Negative (Negative) mg/dL Urine Urobilinogen Negative mg/dL Ur Leukocyte Esterase 75 A (Negative) /uL Urine RBC 0 (0-3) /hpf Urine WBC 5 H (0-4) /hpf Ur Squamous Epith Cells 0 (0-4) /hpf Urine Bacteria None (0) /hpf Ur Culture Indicated? No Synovial Source Right elbow Synovial Color Yellow Synovial Appearance Cloudy Synovial Nuc Cells 97070 /cumm Synovial Neutrophils 82 H (0-25) % Synovial Lymphocytes 9 % Synovial Other Cells 9 % Synovial Uric Acid 11.2 H (0.0-6.0) mg/dL ED POC Tests ED POC Tests: [place]ORD - SARS Antigen Negative EKG Data EKG #1: EKG attestation: Yes I reviewed and interpreted this EKG. EKG results narrative: EKG performed at 2:31 PM: Atrial fibrillation, rate 56. Atypical right bundle branch block. T waves are diffusely flattened and inverted in the precordial leads. Normal QTC duration. No old EKG immediately available for comparison. EKG was interpreted by me. Discharge Plan Patient/Caregiver Discharge Instructions Pt seen by DESKTOP PUBLISHING OPERATOR/PA only: No Clinical Impression: CHF (congestive heart failure), Cellulitis of right elbow, Abscess Patient Disposition: Still a Patient Discharge Date/Time: 12/11/20 23:27
--- NOTE | 2020-12-11 15:03 | EKG ---
[facility] Test Date: 2020-12-11 Pat Name: Honorio Byrd Department: ED Room: Gender: Male Statement Services Representative: SB : [id number] Requested By: Duarte Richards Order Number: [id number] Reading MD: Sam Grant Measurements Intervals [place] Rate: 56 P: [place]: QRS: 58 QRSD: 136 T: -86 QT: 472 QTc: 456 Interpretive Statements ATRIAL FIBRILLATION RIGHT BUNDLE BRANCH BLOCK Unchanged from prior Electronically Signed On 12-11-2020 15:02:40 PDT by Sam Grant /store/[email or web address]/[id number].pdf
[2020-12-11 15:14] LABS: POC Blood Urea Nitrogen 54 mg/dL (6-20); POC CO2 25 mmol/L (22-30); POC Calcium, Ionized 1.08 mmEq/L (1.16-1.32); POC Chloride 106 mEq/L (96-108); POC Creatinine 2.1 mg/dL (0.6-1.2); POC Glucose, Random 72 mg/dL (70-105); POC Hematocrit 40 % (41-55); POC Potassium 3.7 mEql/L (3.3-5.1); POC Sodium 141 mEq/L (133-145)
--- NOTE | 2020-12-11 15:51 | XRay Report ---
HISTORY: Altered mental status, pleural effusion, pneumonia, prior COVID FINDINGS: The heart is severely enlarged. This has increased in size since prior x-ray done on 07/24/20. There are diffuse alveolar opacities in both lungs with the greatest consolidation in the lung bases. There are small to moderate-sized bilateral layering pleural effusions. The effusions have enlarged. The pattern of the infiltrates has changed since the prior x-ray done on 07/24/20. IMPRESSION: Congestive heart failure with pulmonary edema. Residual pneumonia cannot be excluded. Interpreted and Authenticated by: Eze Tang 12/11/20
--- NOTE | 2020-12-11 16:05 | XRay Report ---
HISTORY: Redness and swelling surrounding the right elbow, effusion FINDINGS: No fracture or dislocation are present. The bones are normally mineralized. Joint spaces are normal in width. There is a tiny osteophyte along the outer border of the capitellum. No joint effusion is detected. There is a large amount soft tissue swelling surrounding the elbow and extending into the proximal forearm. No gas or foreign body are seen in the soft tissues. IMPRESSION: Cellulitis surrounding the elbow and upper forearm No evidence of osteomyelitis or joint effusion Interpreted and Authenticated by: Eze Tang 12/11/20
[2020-12-11 16:18] LABS: Basophils # (Auto) 0.02 K/mcL (0.00-0.30); Basophils % (Auto) 0.2 % (0.0-2.0); Eosinophils # (Auto) 0.04 K/mcL (0.00-0.70); Eosinophils % (Auto) 0.4 % (0.0-7.0); Hematocrit 35.1 % (40.1-51.0); Hemoglobin 10.8 g/dL (13.7-17.5); Lymphocytes # (Auto) 0.51 K/mcL (1.50-4.80); Lymphocytes % (Auto) 5.3 % (15.5-49.0); Mean Corpuscular HGB Conc 30.8 g/dL (31.0-36.0); Mean Platelet Volume 10.4 fL (7.4-10.4); Monocytes # (Auto) 0.52 K/mcL (0.10-0.90); Monocytes % (Auto) 5.4 % (1.0-12.0); Neutrophils % (Auto) 88.7 % (38.0-78.0); Platelet Count 174 K/mcL (140-440); RBC 4.39 M/mcL (4.63-6.08); Red Cell Distribution Width 20.7 % (11.5-14.5); WBC 9.6 K/mcL (4.5-11.0)
[2020-12-11 16:19] LABS: ALT/SGPT 28 U/L (<40); AST/SGOT 38 U/L (<40); Albumin 3.6 gm/dL (3.2-5.2); Albumin/Globulin Ratio 1.1 (1.0-2.3); Alkaline Phosphatase 114 U/L (39-117); Bilirubin,Total 1.5 mg/dL (0.1-1.0); Blood Urea Nitrogen 57 mg/dL (8-23); Calcium 9.6 mg/dL (8.6-10.4); Carbon Dioxide 22 mmol/L (22-30); Chloride 103 mmol/L (96-108); Globulin 3.3 gm/dL (2.2-3.7); Glomerular Filtration Rate 31; Glucose 70 mg/dL (70-105)
[2020-12-11] MEDS ORDERED: FUROSEMIDE 40 MG/4 ML VIAL IV ONE (17:25)
[2020-12-11 17:43] LABS: Appearance,Urine HAZY (Clear); Bilirubin,Urine Negative (Negative); Color,Urine YELLOW; Culture Indicated,Urine No; Glucose,Urine (UA) Negative (Negative); Ketones,Urine Negative (Negative); Leukocyte Esterase,Urine 75 /uL (Negative); Nitrate,Urine Negative (Negative); Protein,Urine Negative (Negative); Urine Blood Negative (Negative); Urine RBC 0 /hpf (0-3); Urine Squamous Epithelial Cell 0 /hpf (0-4); Urine WBC 5 /hpf (0-4); Urobilinogen,Urine Negative
--- NOTE | 2020-12-11 18:16 | Ultrasound Report ---
History: Right elbow infection with pain and decreased range of motion TECHNIQUE: The procedure and risks were explained and the the patient consented. Beneath the skin and posterior to the elbow there is an irregularly shaped pocket of fluid which measures 2.5 cm in greatest dimension. There is also a small joint effusion in the posterior aspect of the elbow. The skin over the elbow was prepped with ChloraPrep then anesthetized with 1% lidocaine. Using ultrasound guidance a Yueh needle was first inserted into the more superficial of the two fluid collections. 2 cc of cream colored pus was aspirated. Needle was then inserted into the joint effusion. Less than 1 cc of cloudy fluid was removed. The fluid was sent for culture and sensitivity. He tolerated the procedure well without complication. IMPRESSION: Successful aspiration of small amount of pus from an abscess posterior to the elbow and from within the joint capsule Interpreted and Authenticated by: Eze Tang 12/11/20
[2020-12-11 22:03] LABS: Appearance,Synovial Fluid Cloudy; Color,Synovial Fluid Yellow; Lymphocytes,Synovial Fluid 9 %; Neutrophils,Synovial Fluid 82 % (0-25); Nucleated Cells,Synovial Fld 89856 /cumm; Other Cells,Synovial Fluid 9 %
--- NOTE | 2020-12-11 22:52 | Emergency Department Note ---
HPI General Chief complaint: Altered Mental Status Stated complaint: altered mental status x 3 days Time Seen by Provider: 12/11/20 14:29 Source: patient and EMS Mode of arrival: EMS History of Present Illness HPI Narrative: Narrative: Related Data Home Medications Medication Instructions Recorded Confirmed cyanocobalamin (vitamin B-12) 1,000 mcg PO QDAY tab 08/16/14 12/11/20 1,000 mcg tablet furosemide 20 mg tablet 40 mg PO BID tab 12/23/18 12/11/20 Symbicort 160 mcg INHALATION BID 12/11/20 12/11/20 acetaminophen [Tylenol] 325 mg PO Q4HP PRN 12/11/20 12/11/20 ascorbate calcium (vitamin C) 500 mg PO DAILY 12/11/20 12/11/20 bisacodyl [Dulcolax (bisacodyl)] 10 mg UT QDAY PRN 12/11/20 12/11/20 cephalexin [Keflex] 500 mg PO TID 12/11/20 12/11/20 cholecalciferol (vitamin D3) 50 mcg PO DAILY 12/11/20 12/11/20 metoprolol tartrate 12.5 mg PO BID 12/11/20 12/11/20 oxycodone 5 mg PO Q6 PRN 12/11/20 12/11/20 sennosides [senna] 8.6 mg PO DAILY 12/11/20 12/11/20 Previous Rx's Medication Instructions Recorded iron 150 mg-vit C 60 mg-folate 1 1 tab PO QDAY #30 tab 06/19/20 [id number] tablet Allergies Allergy/AdvReac Type Severity Reaction Status Date / Time No Known Drug Allergies Allergy Verified 06/19/20 10:30 Review of Systems ROS ROS Narrative: Narrative: PFSH Narrative Patient History Narrative: Narrative: Medical/Surgical/Family History All Active Problems (Updated 12/11/20 @ 22:51 by Ishaan Chavarria DO) Atrial fibrillation (Chronic) Cardiomegaly (Chronic) Diabetes mellitus, type II (Chronic) Edema (Chronic) Hyperlipidemia (Chronic) History of gout (Chronic) Hypertension (Chronic) Peripheral vascular disease (Chronic) Chronic kidney disease, stage III (moderate) (Chronic) Hypertensive renal disease (Chronic) 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) Hypoxemia (Chronic) Pulmonary arterial hypertension (Chronic) 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) Morbid obesity (Chronic) 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) Abdominal pain (Acute) Fever (Acute) Mass of cecum (Acute) Abnormal ECG (Acute) Mass of cecum (Acute) Partial small bowel obstruction (Acute) Acute kidney injury superimposed on chronic kidney disease (Acute) 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) Goals of care, counseling/discussion (Acute) CKD (chronic kidney disease), stage IV (Acute) Anemia (Acute) CKD stage G4/A2, GFR 15-29 and albumin creatinine ratio 30-299 mg/g (Acute) 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) Iron deficiency anemia due to chronic blood loss (Acute) COVID-19 (Acute) Acute hypoxemic respiratory failure (Acute) No-show for appointment (Acute) CHF (congestive heart failure) (Acute) Cellulitis of right elbow (Acute) Abscess (Acute) Medical History (Updated 12/11/20 @ 22:51 by Ishaan Chavarria DO) Abdominal wall hernia Anasarca 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 Atrial fibrillation Rate controlled, no anticoagulation as risk outweighs benefit Cardiomegaly Chronic kidney disease, stage III (moderate) 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 Dependence on nocturnal oxygen therapy Diabetes mellitus, type II Edema History of gout Hyperlipidemia Hyperparathyroidism due to renal insufficiency Will check PTH calcium and phosphorus Hypertension Hypertensive renal disease Hypoxemia correction (current) use of anticoagulants Warfarin has been discontinued Morbid obesity KACI on CPAP Peripheral vascular disease Pulmonary arterial hypertension Surgical History History of biopsy (06/21/14) abdominal wall biopsy; 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 no further intervention at this point will cancel surgery referral History of hernia surgery NOS 1947 History of tonsillectomy History of transurethral resection of prostate S/P cataract extraction 2016 Family History Unknown No family history of kidney disease no family history of endocrine disease Father Malignant neoplasm Social History Smoking Status: Never smoker Alcohol Intake Frequency: holiday/special occasion only Substance Use: does not use Exam Narrative Narrative: Narrative: Course Vital Signs Vital signs: Vital Signs Temperature 95.6 F L 10/26/21 14:19 Pulse Rate 50 L 12/11/20 14:19 Respiratory Rate 16 12/11/20 14:19 Blood Pressure 100/68 12/11/20 14:19 Pulse Oximetry (%) 96 12/11/20 14:19 Temperature 97.5 F 12/11/20 19:31 Pulse Rate 65 12/11/20 22:16 Respiratory Rate 13 12/11/20 22:16 Blood Pressure 118/79 12/11/20 22:16 Pulse Oximetry (%) 100 12/11/20 22:16 MDM MDM Narrative Medical decision making narrative: Narrative: Patient was signed out to me by Dr. Richards, and I agree with work-up and plan thus far. His medicine the patient came in for worsening altered mental status and confusion over the past several days at his [facility]. He had just recent been started on Keflex for some cellulitis, and it had some increasing oxygen requirements in terms of nee ding to more frequently uses of his intermittently used 2 L of nasal cannula to help with his dyspnea. At signout, the patient had a work-up consistent with likely CHF exacerbation including chest x-ray showing pulmonary edema as well as physical exam consistent with significant fluid overload. There was no acute evidence of ACS or severe heart strain though. The cellulitis was noted to the right elbow, but due to discomfort with range of motion, ultrasound-guided tap was performed by radiology and the subsequent analysis was pending at signout. I did personally see and examine the patient myself, and he is resting bed comfortably throughout his stay on my shift. Vital signs remained stable through out his stay, at this time he does not appear to be severely septic or toxic. Cell count shows findings concerning for infection, and culture preliminary shows gram-positive cocci, however after reviewing the procedure note it appears that the procedure used the same needle to aspirate the abscess that was outside the joint as well as the joint itself. I do not feel that this current sample gives a true clinical picture of whether or not this is a septic joint versus just cellulitis with an abscess. Reexamination of the patient shows that he states he feels like his elbow is feeling much better after the procedure, and he has range of motion now without difficulty or pain both actively or passively. I anticipate that the aspiration of the abscess functioned as an I&D relieving the pressure that he was experiencing and is feeling much better afterwards from. My suspicion for septic joint is extremely low at this time considering these current findings and his work-up. Plan will be to admit him to the hospital for CHF exacerbation as well as cellulitis, and patient is agreeable to the plan. I discussed case the hospitalist who agrees the plan at this time. Lab Data Result diagrams: 12/11/20 15:00 12/11/20 15:00 Labs: Lab Results 12/11/20 12/11/20 12/11/20 Range/Units 15:00 15:00 15:00 WBC 9.6 (4.5-11.0) K/mcL RBC 4.39 L (4.63-6.08) M/mcL Hgb 10.8 L (13.7-17.5) g/dL Hct 35.1 L (40.1-51.0) % POC Hct 40 L (41-55) % MCV 80.0 (80.0-100.0) fL MCH 24.6 L (26.0-34.0) pg MCHC 30.8 L (31.0-36.0) g/dL RDW 20.7 H (11.5-14.5) % Plt Count 174 (140-440) K/mcL MPV 10.4 (7.4-10.4) fL Neut % (Auto) 88.7 H (38.0-78.0) % Lymph % (Auto) 5.3 L (15.5-49.0) % [place] % (Auto) 5.4 (1.0-12.0) % Eos % (Auto) 0.4 (0.0-7.0) % Baso % (Auto) 0.2 (0.0-2.0) % Lymph # (Auto) 0.51 L (1.50-4.80) K/mcL [place] # (Auto) 0.52 (0.10-0.90) K/mcL Eos # (Auto) 0.04 (0.00-0.70) K/mcL Baso # (Auto) 0.02 (0.00-0.30) K/mcL Absolute Neutrophils 8.49 H (1.80-8.00) K/mcL POC Sodium 141 (133-145) mEq/L Sodium 141 (133-145) mmol/L POC Potassium 3.7 (3.3-5.1) mEql/L Potassium 4.2 (3.3-5.1) mmol/L POC Chloride 106 (96-108) mEq/L Chloride 103 (96-108) mmol/L Carbon Dioxide 22 (22-30) mmol/L POC Total CO2 25 (22-30) mmol/L Anion Gap 16.0 (8.0-16.0) POC BUN 54 H (6-20) mg/dL BUN 57 H (8-23) mg/dL Creatinine 1.9 H (0.7-1.2) mg/dL POC Creatinine 2.1 H (0.6-1.2) mg/dL GFR Calculation 31 Glucose 70 (70-105) mg/dL POC Glucose 72 (70-105) mg/dL Calcium 9.6 (8.6-10.4) mg/dL POC WB Ioniz Calcium 1.08 L (1.16-1.32) mmEq/L Total Bilirubin 1.5 H (0.1-1.0) mg/dL AST 38 (<40) U/L ALT 28 (<40) U/L Alkaline Phosphatase 114 (39-117) U/L NT-Pro-B Natriuret Pep 31782.0 H (<450.0) pg/mL Total Protein 6.9 (5.9-8.4) gm/dL Albumin 3.6 (3.2-5.2) gm/dL Globulin 3.3 (2.2-3.7) gm/dL Albumin/Globulin Ratio 1.1 (1.0-2.3) Urine Color Urine Appearance (Clear) Urine pH (5.0-9.0) Ur Specific [place] (1.000-1.035) Urine Protein (Negative) mg/dL Urine Glucose (UA) (Negative) mg/dL Urine Ketones (Negative) mg/dL Urine Occult Blood (Negative) mg/dL Urine Nitrate (Negative) Urine Bilirubin (Negative) mg/dL Urine Urobilinogen mg/dL Ur Leukocyte Esterase (Negative) /uL Urine RBC (0-3) /hpf Urine WBC (0-4) /hpf Ur Squamous Epith Cells (0-4) /hpf Urine Bacteria (0) /hpf Ur Culture Indicated? Synovial Source Synovial Color Synovial Appearance Synovial Nuc Cells /cumm Synovial Neutrophils (0-25) % Synovial Lymphocytes % Synovial Other Cells % 12/11/20 12/11/20 Range/Units 16:30 19:11 WBC (4.5-11.0) K/mcL RBC (4.63-6.08) M/mcL Hgb (13.7-17.5) g/dL Hct (40.1-51.0) % POC Hct (41-55) % MCV (80.0-100.0) fL MCH (26.0-34.0) pg MCHC (31.0-36.0) g/dL RDW (11.5-14.5) % Plt Count (140-440) K/mcL MPV (7.4-10.4) fL Neut % (Auto) (38.0-78.0) % Lymph % (Auto) (15.5-49.0) % [place] % (Auto) (1.0-12.0) % Eos % (Auto) (0.0-7.0) % Baso % (Auto) (0.0-2.0) % Lymph # (Auto) (1.50-4.80) K/mcL [place] # (Auto) (0.10-0.90) K/mcL Eos # (Auto) (0.00-0.70) K/mcL Baso # (Auto) (0.00-0.30) K/mcL Absolute Neutrophils (1.80-8.00) K/mcL POC Sodium (133-145) mEq/L Sodium (133-145) mmol/L POC Potassium (3.3-5.1) mEql/L Potassium (3.3-5.1) mmol/L POC Chloride (96-108) mEq/L Chloride (96-108) mmol/L Carbon Dioxide (22-30) mmol/L POC Total CO2 (22-30) mmol/L Anion Gap (8.0-16.0) POC BUN (6-20) mg/dL BUN (8-23) mg/dL Creatinine (0.7-1.2) mg/dL POC Creatinine (0.6-1.2) mg/dL GFR Calculation Glucose (70-105) mg/dL POC Glucose (70-105) mg/dL Calcium (8.6-10.4) mg/dL POC WB Ioniz Calcium (1.16-1.32) mmEq/L Total Bilirubin (0.1-1.0) mg/dL AST (<40) U/L ALT (<40) U/L Alkaline Phosphatase (39-117) U/L NT-Pro-B Natriuret Pep (<450.0) pg/mL Total Protein (5.9-8.4) gm/dL Albumin (3.2-5.2) gm/dL Globulin (2.2-3.7) gm/dL Albumin/Globulin Ratio (1.0-2.3) Urine Color Yellow Urine Appearance Hazy A (Clear) Urine pH 5.0 (5.0-9.0) Ur Specific [place] 1.010 (1.000-1.035) Urine Protein Negative (Negative) mg/dL Urine Glucose (UA) Negative (Negative) mg/dL Urine Ketones Negative (Negative) mg/dL Urine Occult Blood Negative (Negative) mg/dL Urine Nitrate Negative (Negative) Urine Bilirubin Negative (Negative) mg/dL Urine Urobilinogen Negative mg/dL Ur Leukocyte Esterase 75 A (Negative) /uL Urine RBC 0 (0-3) /hpf Urine WBC 5 H (0-4) /hpf Ur Squamous Epith Cells 0 (0-4) /hpf Urine Bacteria None (0) /hpf Ur Culture Indicated? No Synovial Source Right elbow Synovial Color Yellow Synovial Appearance Cloudy Synovial Nuc Cells 25409 /cumm Synovial Neutrophils 82 H (0-25) % Synovial Lymphocytes 9 % Synovial Other Cells 9 % ED POC Tests ED POC Tests: [place] - SARS Antigen Negative Discharge Plan Patient/Caregiver Discharge Instructions Pt seen by SOFTWARE PACKAGING ENGINEER/PA only: No Clinical Impression: CHF (congestive heart failure), Cellulitis of right elbow, Abscess Patient Disposition: Xfer As Inpt ([facility]) Follow up with: Vinnie Gresham MD [Primary Care Provider] - Prescriptions: No Action cyanocobalamin (vitamin B-12) 1,000 mcg tablet 1,000 mcg PO QDAY RF: 0 Niferex ([place]-Quatrefolic) 150 mg iron- 60 mg-1 mg tablet 1 tab PO QDAY Qty: 30 RF: 0 furosemide 20 mg tablet 40 mg PO BID RF: 0 cephalexin [Keflex] 500 mg Capsule 500 mg PO TID RF: 0 oxycodone 5 mg Tablet 5 mg PO Q6 PRN (Reason: Pain) RF: 0 sennosides [senna] 8.6 mg Tablet 8.6 mg PO DAILY RF: 0 acetaminophen [Tylenol] 325 mg Tablet 325 mg PO Q4HP PRN (Reason: Pain) RF: 0 bisacodyl [Dulcolax (bisacodyl)] 10 mg Suppository 10 mg UT QDAY PRN (Reason: Constipation) RF: 0 ascorbate calcium (vitamin C) 500 mg Tablet 500 mg PO DAILY RF: 0 cholecalciferol (vitamin D3) 50 mcg (2,000 unit) Tablet 50 mcg PO DAILY RF: 0 Symbicort 160 mcg inhalation BID RF: 0 metoprolol tartrate 25 mg tablet 12.5 mg PO BID RF: 0
[2020-12-11] MEDS ORDERED: ACETAMINOPHEN (PP) 325MG TABLET (#50) PO PRN (22:57)
[2020-12-11] MEDS ORDERED: oxyCODONE HCL 5 MG TABLET PO PRN (22:57)
[2020-12-11] MEDS ORDERED: BISACODYL 10 MG SUPP.RECT PR PRN (22:57)
--- NOTE | 2020-12-11 23:07 | Internal Med History&Physical ---
HPI History of Present Illness Patient information: Note initiated : 12/11/20 at 11:06 pm Service Date, if different from initiated Date: [] Patient: Honorio Byrd a 89 y/o M admitted on for altered mental status x 3 days. Chief Complaint: [CHF, cellulitis, UTI] History of present illness: Mr. Byrd is a 89 year old M residential resident ([facility]), h/o congestive heart failure, essential hypertension's, chronic kidney disease stage IV, atrial fibrillation, type 2 diabetes mellitus, presenting with 4-day history of general body weakness, altered mental status, increasing shortness of breath, extremity edema's, and pain swelling and erythem a of the right elbow for 4 to 5 months. History severely limited by patient's clinical situations as well as lack of residential staff available. Vital signs are within normal limits. Labs significant for lack of leukocytosis with WBC 9.6. Serum BNP 18,000. Urine analysis suggestive of urinary tract infections. Chest x-ray suggestive of the presence of pulmonary edema. Right elbow x-ray showing cellulitis surrounding the elbow and upper forearm. No evidence of osteomyelitis or joint effusions. Radiologist assist aspirations of right elbow with proximately 2 cc of joint fluid aspirate. Patient currently denies any right elbow pain. Constitutional Constitutional: Present fatigue, lethargy and weakness; Absent chills, excessive sweating and fever(s) EENT Eyes: Absent blurry vision, change in vision, loss of vision and other visual disturbances Ears: Absent decreased hearing and tinnitus Nose, mouth and throat: Absent abnormal hearing, dry mouth, headache(s), nasal congestion and sore throat Cardiovascular Cardiovascular: Absent chest pain, chest pain at rest, edema, irregular heart rhythm and palpatations Respiratory Respiratory: Present dyspnea; Absent cough and wheezing Gastrointestinal Gastrointestinal: Absent abdominal pain, constipation, diarrhea, nausea and vomiting Musculoskeletal Musculoskeletal: Present arthralgias and joint swelling; Absent back pain, deformity, limited range of motion, muscle cramps, muscle weakness and numbness Integumentary Integumentary: Present swelling; Absent rash and wounds Neurological Neurological: Present confusion; Absent focal weakness, headache(s) and numbness Psychiatric Psychiatric: Absent anxiety, depression and hallucinations PFSH PFSH All Active Problems (Updated 12/11/20 @ 23:16 by Nii Marin MD) CHF exacerbation (Acute) UTI (urinary tract infection) (Acute) Atrial fibrillation (Chronic) Cardiomegaly (Chronic) Diabetes mellitus, type II (Chronic) Edema (Chronic) Hyperlipidemia (Chronic) History of gout (Chronic) Hypertension (Chronic) Peripheral vascular disease (Chronic) Chronic kidney disease, stage III (moderate) (Chronic) Hypertensive renal disease (Chronic) 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) Hypoxemia (Chronic) Pulmonary arterial hypertension (Chronic) 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) Morbid obesity (Chronic) 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) Abdominal pain (Acute) Fever (Acute) Mass of cecum (Acute) Abnormal ECG (Acute) Mass of cecum (Acute) Partial small bowel obstruction (Acute) Acute kidney injury superimposed on chronic kidney disease (Acute) 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) Goals of care, counseling/discussion (Acute) CKD (chronic kidney disease), stage IV (Acute) Anemia (Acute) CKD stage G4/A2, GFR 15-29 and albumin creatinine ratio 30-299 mg/g (Acute) 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) Iron deficiency anemia due to chronic blood loss (Acute) COVID-19 (Acute) Acute hypoxemic respiratory failure (Acute) No-show for appointment (Acute) CHF (congestive heart failure) (Acute) Cellulitis of right elbow (Acute) Abscess (Acute) Medical History (Updated 12/11/20 @ 23:16 by Nii Marin MD) Abdominal wall hernia Anasarca 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 Atrial fibrillation Rate controlled, no anticoagulation as risk outweighs benefit Cardiomegaly Chronic kidney disease, stage III (moderate) 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 Dependence on nocturnal oxygen therapy Diabetes mellitus, type II Edema History of gout Hyperlipidemia Hyperparathyroidism due to renal insufficiency Will check PTH calcium and phosphorus Hypertension Hypertensive renal disease Hypoxemia 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 Warfarin has been discontinued Morbid obesity KACI on CPAP Peripheral vascular disease Pulmonary arterial hypertension Surgical History History of biopsy (06/21/14) abdominal wall biopsy; 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 no further intervention at this point will cancel surgery referral History of hernia surgery NOS 1947 History of tonsillectomy History of transurethral resection of prostate S/P cataract extraction 2016 Family History Unknown No family history of kidney disease no family history of endocrine disease Father Malignant neoplasm Social History (Updated 07/22/19 @ 13:30 by Cora Bentley MD) household members: significant other marital status: alcohol intake frequency: holiday/special occasion only substance use type: does not use MEDS/ALLERGIES Home Medications and Allergies Home Medications Medication Instructions Recorded Confirmed Type cyanocobalamin (vitamin B-12) 1,000 mcg PO QDAY tab 08/16/14 12/11/20 History 1,000 mcg tablet furosemide 20 mg tablet 40 mg PO BID tab 12/23/18 12/11/20 History iron 150 mg-vit C 60 mg-folate 1 1 tab PO QDAY #30 tab 06/19/20 12/11/20 Rx [id number] tablet Symbicort 160 mcg INHALATION BID 12/11/20 12/11/20 History acetaminophen [Tylenol] 325 mg PO Q4HP PRN 12/11/20 12/11/20 History ascorbate calcium (vitamin C) 500 mg PO DAILY 12/11/20 12/11/20 History bisacodyl [Dulcolax (bisacodyl)] [address] QDAY PRN 12/11/20 12/11/20 History cephalexin [Keflex] 500 mg PO TID 12/11/20 12/11/20 History cholecalciferol (vitamin D3) 50 mcg PO DAILY 12/11/20 12/11/20 History metoprolol tartrate 12.5 mg PO BID 12/11/20 12/11/20 History oxycodone 5 mg PO Q6 PRN 12/11/20 12/11/20 History sennosides [senna] 8.6 mg PO DAILY 12/11/20 12/11/20 History Allergies Allergy/AdvReac Type Severity Reaction Status Date / Time No Known Drug Allergies Allergy Verified 06/19/20 10:30 EXAM Constitutional Vitals: Temp Pulse Resp BP Pulse Ox 36.4 C 60 16 134/109 100 12/11/20 19:31 12/11/20 22:46 12/11/20 22:46 12/11/20 22:46 12/11/20 22:46 General appearance: cooperative and no acute distress Head Head exam: Present atraumatic and normocephalic Eye Eye exam: Present EOMI and PERRL ENT ENT exam: Present mucous membranes moist, normal exam and normal external ear exam Additional comments: Nasal cannula in place Neck Neck exam: Present normal inspection; Absent lymphadenopathy, tenderness and thyromegaly Respiratory Respiratory exam: Present rhonchi; Absent accessory muscle use, respiratory distress and wheezes Cardiovascular Cardiovascular exam: Present irregular rhythm; Absent JVD GI/Abdominal GI/Abdominal exam: Present normal bowel sounds and soft; Absent organomegaly and tenderness Rectal Rectal exam: Present deferred Additional comments: Cutler catheter in place Extremities Exam Extremities exam: Present full ROM, joint swelling, normal capillary refill and pedal edema; Absent normal inspection and tenderness Neurological Exam Neurological exam: Present alert, CN II-XII intact and oriented X3; Absent motor sensory deficit Psychiatric Psychiatric exam: Present normal affect and normal mood; Absent anxious and depressed Skin Skin exam: Present dry, erythema, intact, rash and warm DATA Data Completed and Pending Labs: Labs from last 24 hours 12/11/20 12/11/20 12/11/20 19:11 16:30 15:00 WBC RBC Hgb Hct POC Hct MCV MCH MCHC RDW Plt Count MPV Neut % (Auto) Lymph % (Auto) [place] % (Auto) Eos % (Auto) Baso % (Auto) Lymph # (Auto) [place] # (Auto) Eos # (Auto) Baso # (Auto) Absolute Neutrophils POC Sodium Sodium POC Potassium Potassium POC Chloride Chloride Carbon Dioxide POC Total CO2 Anion Gap POC BUN BUN Creatinine POC Creatinine GFR Calculation Glucose POC Glucose Calcium POC WB Ioniz Calcium Total Bilirubin AST ALT Alkaline Phosphatase NT-Pro-B Natriuret Pep 25850.0 H Total Protein Albumin Globulin Albumin/Globulin Ratio Urine Color Yellow Urine Appearance Hazy A Urine pH 5.0 Ur Specific [place] 1.010 Urine Protein Negative Urine Glucose (UA) Negative Urine Ketones Negative Urine Occult Blood Negative Urine Nitrate Negative Urine Bilirubin Negative Urine Urobilinogen Negative Ur Leukocyte Esterase 75 A Urine RBC 0 Urine WBC 5 H Ur Squamous Epith Cells 0 Urine Bacteria None Ur Culture Indicated? No Fluid Crystals Pending Synovial Source Right elbow Synovial Color Yellow Synovial Appearance Cloudy Synovial Nuc Cells [id number] Synovial Neutrophils 82 H Synovial Lymphocytes 9 Synovial Other Cells 9 Synovial Uric Acid Pending 12/11/20 12/11/20 15:00 15:00 WBC 9.6 RBC 4.39 L Hgb 10.8 L Hct 35.1 L POC Hct 40 L MCV 80.0 MCH 24.6 L MCHC 30.8 L RDW 20.7 H Plt Count 174 MPV 10.4 Neut % (Auto) 88.7 H Lymph % (Auto) 5.3 L [place] % (Auto) 5.4 Eos % (Auto) 0.4 Baso % (Auto) 0.2 Lymph # (Auto) 0.51 L [place] # (Auto) 0.52 Eos # (Auto) 0.04 Baso # (Auto) 0.02 Absolute Neutrophils 8.49 H POC Sodium 141 Sodium 141 POC Potassium 3.7 Potassium 4.2 POC Chloride 106 Chloride 103 Carbon Dioxide 22 POC Total CO2 25 Anion Gap 16.0 POC BUN 54 H BUN 57 H Creatinine 1.9 H POC Creatinine 2.1 H GFR Calculation 31 Glucose 70 POC Glucose 72 Calcium 9.6 POC WB Ioniz Calcium 1.08 L Total Bilirubin 1.5 H AST 38 ALT 28 Alkaline Phosphatase 114 NT-Pro-B Natriuret Pep Total Protein 6.9 Albumin 3.6 Globulin 3.3 Albumin/Globulin Ratio 1.1 Urine Color Urine Appearance Urine pH Ur Specific [place] Urine Protein Urine Glucose (UA) Urine Ketones Urine Occult Blood Urine Nitrate Urine Bilirubin Urine Urobilinogen Ur Leukocyte Esterase Urine RBC Urine WBC Ur Squamous Epith Cells Urine Bacteria Ur Culture Indicated? Fluid Crystals Synovial Source Synovial Color Synovial Appearance Synovial Nuc Cells Synovial Neutrophils Synovial Lymphocytes Synovial Other Cells Synovial Uric Acid Preliminary micro results at discharge 12/11/20 19:12 Gram Stain - Preliminary Aspirate - Elbow A/P Assessment and plan (1) Atrial fibrillation: Status: Chronic Comment: Rate controlled, no anticoagulation as risk outweighs benefit Qualifiers: Atrial fibrillation type: unspecified Qualified Code(s): I48.91 - Unspecified atrial fibrillation (2) Diabetes mellitus, type II: Status: Chronic (3) Hypertension: Status: Chronic (4) CKD (chronic kidney disease), stage IV: Status: Acute Comment: Obstructive uropathy has been ruled out. He has normal amounts of proteinuria. He has a mild increase in his blood eosinophils, and no concomitant increase in urine eosinophils This too early to tell but I suspect he has some sort of chronic interstitial process along with the normal aging of the kidneys. While his kidney function should be 60 cc/min it is only a third that at 20 cc/min and we hope to maintain this for the remainder of his life. (5) Anemia in stage 4 chronic kidney disease: Status: Acute (6) Cellulitis of right elbow: Status: Acute (7) UTI (urinary tract infection): Status: Acute (8) CHF exacerbation: Status: Acute Narrative A/P Narrative: Assessment and plan: 1. Congestive heart failure exacerbations: Admission to inpatient MedSurg telemetry Strict intake and output measurement Daily weight 2 L/day fluid restrictions 2D echocardiogram Supplemental oxygen titrate to achieve SPO2 above or equal to 92% Continue beta-lorenza from home regiment Lisinopril 2.5mg PO daily Lasix 40 mg IV twice daily Cutler catheter insertions and catheter care Physical therapy Occupational Therapy 2. Right elbow cellulitis/bursitis with differential diagnosis of septic joint: Serial lactic acid Procalcitonin level Blood culture CBC with auto differential in the morning to trend WBC Joint aspirate fluid analysis including crystal analysis, uric acid, Gram stain and culture, cell count and differential Rocephin Tylenol as needed fever or mild pain Oxycodone as needed moderate pain Morphine IV as needed severe pain #3 urinary tract infections: Serial lactic acid Procalcitonin level Blood culture Urine culture CBC with auto differential in the morning to trend WBC Rocephin 4. Permanent atrial fibrillation's: Continue beta-lorenza for rate control [id number] score of 5, Eliquis 2.5mg PO BID renally adjusted dosage #5 hypertension's in chronic kidney disease stage IV with associated anemia: Currently normotensive Continue beta-lorenza from home regiment Add lisinopril as part of the management for CHF Lasix 40 mg IV twice daily Avoid nephrotoxic agent Saline lock Repeat CMP in the morning to trend kidney functions CBC with auto differential in the morning to trend H&H; transfuse PRBC if hemoglobin less than 7.0, active bleeding, or if patient becomes symptomatic #6 type 2 diabetes mellitus: Hemoglobin A1c Avoid oral hypoglycemics Low-dose correctional scale insulin Aspart AC HS Accu chek AC HS Hypoglycemia protocol Diabetic diet GI prophylaxis: Not currently indicated DVT prophylaxis: Eliquis CODE STATUS: DNR/DNI Prognosis: Guarded Disposition: Inpatient MedSur with telemetry Time Spent With Patient Time: Total time spent is greater than 50% in coordination of care (as documented) at patient's floor/unit and/or counseling patient: Total time spent with greater than 50% in coordination of care (as documented) at patient's floor/unit and/or counseling patient:: Greater than 35 minutes
[2020-12-11 23:40] LABS: Uric Acid,Synovial Fluid 11.2 mg/dL (0.0-6.0)
[2020-12-12] MEDS ORDERED: cefTRIAXone 1 GM in DEXTROSE 5% IN WATER 50 ML IV SCH (01:12)
[2020-12-12] MEDS ORDERED: DEXTROSE 31 GM ORAL.SUSP PO PRN (01:12)
[2020-12-12] MEDS ORDERED: IPRATROPIUM/ALBUTEROL 3 ML AMPUL.NEB NEB PRN (01:12)
[2020-12-12] MEDS ORDERED: ACETAMINOPHEN (PP) 325MG TABLET (#50) PO PRN (01:12)
[2020-12-12] MEDS ORDERED: morphine 4 MG/ML VIAL IV PRN (01:12)
[2020-12-12] MEDS ORDERED: ONDANSETRON 4 MG/2 ML VIAL IV PRN (01:12)
[2020-12-12] MEDS ORDERED: ZOLPIDEM 5 MG TABLET PO PRN (01:12)
[2020-12-12] MEDS ORDERED: oxyCODONE HCL 5 MG TABLET PO PRN (01:12)
[2020-12-12] MEDS ORDERED: ACETAMINOPHEN 325 MG TABLET PO PRN (01:12)
[2020-12-12] MEDS ORDERED: BISACODYL 10 MG SUPP.RECT PR PRN (01:12)
[2020-12-12] MEDS ORDERED: DEXTROSE 50% 50 ML VIAL IV PRN (01:12)
[2020-12-12 03:05] LABS: Estimated Average Glucose(eAG) 103 mg/dL; Hemoglobin A1C 5.2 % Hgb (4.0-6.0)
[2020-12-12] MEDS: 0.9 % SODIUM CHLORIDE 10 ML SYRINGE IV SCH ×3 (06:14→21:07)
[2020-12-12] MEDS: INSULIN LISPRO 1 UNIT/0.01 ML UNIT SQ SCH ×4 (07:23→21:07)
[2020-12-12 07:52] LABS: Basophils # (Auto) 0.03 K/mcL (0.00-0.30); Basophils % (Auto) 0.3 % (0.0-2.0); Eosinophils # (Auto) 0.05 K/mcL (0.00-0.70); Eosinophils % (Auto) 0.5 % (0.0-7.0); Hematocrit 34.1 % (40.1-51.0); Hemoglobin 10.8 g/dL (13.7-17.5); Lymphocytes # (Auto) 0.54 K/mcL (1.50-4.80); Lymphocytes % (Auto) 5.4 % (15.5-49.0); Mean Cell Volume 79.9 fL (80.0-100.0); Mean Corpuscular HGB Conc 31.7 g/dL (31.0-36.0); Mean Platelet Volume 10.6 fL (7.4-10.4); Monocytes # (Auto) 0.74 K/mcL (0.10-0.90); Monocytes % (Auto) 7.4 % (1.0-12.0); Neutrophils % (Auto) 86.4 % (38.0-78.0); Platelet Count 173 K/mcL (140-440); RBC 4.27 M/mcL (4.63-6.08); Red Cell Distribution Width 21.1 % (11.5-14.5)
[2020-12-12 08:18] LABS: ALT/SGPT 27 U/L (<40); AST/SGOT 29 U/L (<40); Albumin 3.3 gm/dL (3.2-5.2); Albumin/Globulin Ratio 1.1 (1.0-2.3); Alkaline Phosphatase 108 U/L (39-117); Bilirubin,Total 1.6 mg/dL (0.1-1.0); Blood Urea Nitrogen 50 mg/dL (8-23); Calcium 9.1 mg/dL (8.6-10.4); Carbon Dioxide 22 mmol/L (22-30); Chloride 105 mmol/L (96-108); Globulin 2.9 gm/dL (2.2-3.7); Glomerular Filtration Rate 33; Glucose 65 mg/dL (70-105)
[2020-12-12] MEDS ORDERED: CYANOCOBALAMIN (VITAMIN B-12) 1,000 MCG TABLET PO SCH (09:00)
[2020-12-12] MEDS ORDERED: LISINOPRIL 2.5 MG TABLET PO SCH (09:00)
[2020-12-12] MEDS ORDERED: SYMBICORT 160 MCG INHALATION SCH (09:00)
[2020-12-12] MEDS ORDERED: ASCORBATE CALCIUM 500 MG PO SCH (09:00)
[2020-12-12] MEDS ORDERED: [UNRECOGNIZED DRUG - OTHER] PO SCH (09:00)
[2020-12-12] MEDS ORDERED: SENNOSIDES 1 TABLET PO SCH ×2 (09:00)
[2020-12-12] MEDS ORDERED: METOPROLOL TARTRATE 25 MG TABLET PO SCH (09:00)
[2020-12-12] MEDS: FUROSEMIDE 40 MG/4 ML VIAL IV SCH ×2 (10:05→16:43)
[2020-12-12] MEDS: cefTRIAXone 1 GM VIAL IV SCH (10:06)
[2020-12-12] MEDS: APIXABAN 5 MG TABLET PO SCH ×2 (10:06→21:06)
[2020-12-12] MEDS: DOCUSATE SODIUM 100 MG CAPSULE PO SCH ×2 (10:06→21:05)
--- NOTE | 2020-12-12 12:15 | Internal Med Progress Note ---
SUBJECTIVE Subjective Patient information: Note initiated : 12/12/20 at 12:10 pm Service Date, if different from initiated Date: [] Patient: Honorio Byrd 89 y/o M admitted on 12/11/20 for altered mental status x 3 days. Chief Complaint: [CHF exacerbation, right elbow cellulitis/abscess, UTI] Interval history: History of present illness: Mr. 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 History severely limited by patient's clinical situations as well as lack of custodial staff available. Vital signs are within normal limits. Labs significant for lack of leukocytosis with WBC 9.6. Serum BNP 18,000. Urine analysis suggestive of urinary tract infections. Chest x-ray suggestive of the presence of pulmonary edema. Right elbow x-ray showing cellulitis surrounding the elbow and upper forearm. No evidence of osteomyelitis or joint effusions. Radiologist assist aspirations of right elbow with proximately 2 cc of joint fluid aspirate. Patient currently denies any right elbow pain. 12/12: Afebrile overnight. Now tolerating room air. Good urine output. Blood urine and aspirate culture no growth to date. Aspirate cell WBC 28402, could be a case of septic joint. Subjective not obtained due to clinical situations. Constitutional Vitals: Vital Signs Temp Pulse Resp BP Pulse Ox 35.9 C L 61 14 93/62 93 12/12/20 07:53 12/12/20 07:53 12/12/20 07:53 12/12/20 07:53 12/12/20 04:27 Period Temp Pulse Resp BP Sys/Steven Pulse Ox Last 24 Hr 35.3 C-36.4 C 50-77 10-20 93-144/48-109 74-100 Intake and Output 12/11/20 12/12/20 12/12/20 21:59 05:59 13:59 Intake Total 1066 0 Output Total 1000 550 Balance 66 -550 Weight 110.858 kg Intake & Output: Intake & Output 12/11/20 12/12/2021 21:59 05:59 13:59 Intake Total 1066 0 Output Total 1000 550 Balance 66 -550 Weight 110.858 kg Intake: IV 1066 Sodium Chloride 0.9% 2,000 ml @ 1016 Wide Open IV .Q0M ONE Rx#: [id number] Rocephin 1 gm In Dextrose 5% in 50 Water 50 ml @ 100 mls/hr IV ONCE PAOLO Rx#:[id number] Oral 0 Output: Urine Catheter Amount 550 Void Amount 1000 Other: Urine Appearance Clear Clear Uretheral (Cutler) Clear Clear Urine Color Bright Yellow Uretheral (Cutler) Dark Yellow Dark Yellow Urine Odor Normal Uretheral (Cutler) Normal General appearance: cooperative, disheveled, morbidly obese and no acute distress Head Head exam: Present atraumatic and normocephalic Eye Eye exam: Present EOMI and PERRL ENT ENT exam: Present mucous membranes moist, normal exam and normal external ear exam Neck Neck exam: Present normal inspection; Absent lymphadenopathy, tenderness and thyromegaly Respiratory Respiratory exam: Present rhonchi; Absent accessory muscle use, respiratory distress and wheezes Cardiovascular Cardiovascular exam: Present irregular rhythm; Absent JVD GI/Abdominal GI/Abdominal exam: Present normal bowel sounds and soft; Absent organomegaly and tenderness Rectal Rectal exam: Present deferred Additional comments: Cutler catheter in place Extremities Exam Extremities exam: Present full ROM, normal capillary refill and pedal edema; Absent normal inspection and tenderness Neurological Exam Neurological exam: Present alert, CN II-XII intact and oriented X3; Absent motor sensory deficit Psychiatric Psychiatric exam: Present normal affect and normal mood; Absent anxious and depressed Skin Skin exam: Present dry, erythema, rash, vesicles and warm; Absent intact OBJ DATA Labs CBC & Chem 7: 12/12/20 05:52 12/12/20 05:52 Labs: Abnormal Lab Results 12/12/20 12/12/20 12/12/20 05:52 05:52 01:30 RBC 4.27 L Hgb 10.8 L Hct 34.1 L POC Hct MCV 79.9 L MCH 25.3 L MCHC RDW 21.1 H MPV 10.6 H Neut % (Auto) 86.4 H Lymph % (Auto) 5.4 L Lymph # (Auto) 0.54 L Absolute Neutrophils 8.66 H VBG Lactic Acid Anion Gap 17.0 H POC BUN BUN 50 H Creatinine 1.8 H POC Creatinine Glucose 65 L POC WB Ioniz Calcium Total Bilirubin 1.6 H NT-Pro-B Natriuret Pep Procalcitonin 0.15 H Urine Appearance Ur Leukocyte Esterase Urine WBC Synovial Neutrophils Synovial Uric Acid 12/12/20 12/11/20 12/11/20 01:30 19:11 16:30 RBC Hgb Hct POC Hct MCV MCH MCHC RDW MPV Neut % (Auto) Lymph % (Auto) Lymph # (Auto) Absolute Neutrophils VBG Lactic Acid 2.7 H Anion Gap POC BUN BUN Creatinine POC Creatinine Glucose POC WB Ioniz Calcium Total Bilirubin NT-Pro-B Natriuret Pep Procalcitonin Urine Appearance Hazy A Ur Leukocyte Esterase 75 A Urine WBC 5 H Synovial Neutrophils 82 H Synovial Uric Acid 11.2 H 12/11/20 12/11/20 12/11/20 15:00 15:00 15:00 RBC 4.39 L Hgb 10.8 L Hct 35.1 L POC Hct 40 L MCV MCH 24.6 L MCHC 30.8 L RDW 20.7 H MPV Neut % (Auto) 88.7 H Lymph % (Auto) 5.3 L Lymph # (Auto) 0.51 L Absolute Neutrophils 8.49 H VBG Lactic Acid Anion Gap POC BUN 54 H BUN 57 H Creatinine 1.9 H POC Creatinine 2.1 H Glucose POC WB Ioniz Calcium 1.08 L Total Bilirubin 1.5 H NT-Pro-B Natriuret Pep 75556.0 H Procalcitonin Urine Appearance Ur Leukocyte Esterase Urine WBC Synovial Neutrophils Synovial Uric Acid Meds: Medications Acetaminophen (Acetaminophen 325 Mg Tablet) 650 mg PO Q6HP PRN; Protocol PRN Reason: Per Pain Protocol/Fever > 101 Albuterol/Ipratropium (Ipratropium/Albuterol 3 Ml Ampul.Neb) 3 ml NEB Q4HRT PRN PRN Reason: Wheezing Apixaban (Apixaban 5 Mg Tablet) 2.5 mg PO BID [facility] Last Admin: 12/12/20 10:06 Dose: 2.5 mg Documented by: Ceftriaxone Sodium (Ceftriaxone 1 Gm Vial) 1 gm IV Q24H PAOLO Last Admin: 12/12/20 10:06 Dose: 1 gm Documented by: Dextrose (Dextrose 50% 50 Ml Vial) 0 ml IV UD PRN PRN Reason: Hypoglycemia Diagnostic Test (Pha) (Accu-Chek 1 Each Strip) 1 each FS [facility] Last Admin: 12/12/20 12:00 Dose: 1 each Documented by: Docusate Sodium (Docusate Sodium 100 Mg Capsule) 100 mg PO BID [facility] Last Admin: 12/12/20 10:06 Dose: 100 mg Documented by: Furosemide (Furosemide 40 Mg/4 Ml Vial) 40 mg IV BIDD [facility] Last Admin: 12/12/20 10:05 Dose: 40 mg Documented by: Glucose (Dextrose 31 Gm Oral.Susp) 15 gm PO PRN PRN PRN Reason: Hypoglycemia Insulin Human Lispro (Insulin Lispro 1 Unit/0.01 Ml Unit) 0 unit SQ [facility]; Protocol Last Admin: 12/12/20 12:05 Dose: Not Given Documented by: Morphine Sulfate (Morphine 4 Mg/Ml Vial) 4 mg IV Q4HP PRN; Protocol PRN Reason: Per Pain Protocol Ondansetron HCl (Ondansetron 4 Mg/2 Ml Vial) 4 mg IV Q6HP PRN PRN Reason: Nausea And Vomiting Senna (Sennosides 1 Tablet) 2 tab PO [facility] Sodium Chloride (0.9 % Sodium Chloride 10 Ml Syringe) 10 ml IV Q8 [facility] Last Admin: 12/12/20 06:14 Dose: 10 ml Documented by: Zolpidem Tartrate (Zolpidem 5 Mg Tablet) 5 mg PO HSP PRN PRN Reason: Insomnia A/P Assessment and plan (1) Atrial fibrillation: Status: Chronic Comment: Rate controlled, no anticoagulation as risk outweighs benefit Qualifiers: Atrial fibrillation type: unspecified Qualified Code(s): I48.91 - Unspecified atrial fibrillation (2) Diabetes mellitus, type II: Status: Chronic (3) Hypertension: Status: Chronic (4) CKD (chronic kidney disease), stage IV: Status: Acute Comment: Obstructive uropathy has been ruled out. He has normal amounts of proteinuria. He has a mild increase in his blood eosinophils, and no concomitant increase in urine eosinophils This too early to tell but I suspect he has some sort of chronic interstitial process along with the normal aging of the kidneys. While his kidney function should be 60 cc/min it is only a third that at 20 cc/min and we hope to maintain this for the remainder of his life. (5) Anemia in stage 4 chronic kidney disease: Status: Acute (6) Cellulitis of right elbow: Status: Acute (7) UTI (urinary tract infection): Status: Acute (8) CHF exacerbation: Status: Acute Narrative A/P Narrative: Assessment and plan: 1. Congestive heart failure exacerbations: Stays in inpatient MedSurg telemetry Strict intake and output measurement Daily weight 2 L/day fluid restrictions 2D echocardiogram pending Supplemental oxygen titrate to achieve SPO2 above or equal to 92%, currently tolerating room air Continue beta-lorenza from home regiment Lisinopril 2.5mg PO daily Lasix 40 mg IV twice daily Cutler catheter insertions and catheter care Physical therapy Occupational Therapy 2. Right elbow cellulitis/bursitis with differential diagnosis of septic joint: Serial lactic acid Procalcitonin level Blood culture, no growth to date CBC with auto differential in the morning to trend WBC Joint aspirate fluid analysis including crystal analysis, uric acid, Gram stain and culture, cell count and differential-->WBC [id number], could be suggestive of septic joint Rocephin Tylenol as needed fever or mild pain Oxycodone as needed moderate pain Morphine IV as needed severe pain #3 urinary tract infections: Serial lactic acid Procalcitonin level Blood culture, no growth to date Urine culture, no growth to date CBC with auto differential in the morning to trend WBC Rocephin 4. Permanent atrial fibrillation's: Continue beta-lorenza for rate control [id number] score of 5, Eliquis 2.5mg PO BID renally adjusted dosage #5 hypertension's in chronic kidney disease stage IV with associated anemia: Currently normotensive Continue beta-lorenza from home regiment Add lisinopril as part of the management for CHF Lasix 40 mg IV twice daily Avoid nephrotoxic agent Saline lock Repeat CMP in the morning to trend kidney functions CBC with auto differential in the morning to trend H&H; transfuse PRBC if hemoglobin less than 7.0, active bleeding, or if patient becomes symptomatic #6 type 2 diabetes mellitus: Hemoglobin A1c Avoid oral hypoglycemics Low-dose correctional scale insulin Aspart AC HS Accu chek AC HS Hypoglycemia protocol Diabetic diet GI prophylaxis: Not currently indicated DVT prophylaxis: Eliquis CODE STATUS: DNR/DNI Prognosis: Guarded Disposition: Inpatient MedSur with telemetry Time Spent With Patient Time: Total time spent is greater than 50% in coordination of care (as documented) at patient's floor/unit and/or counseling patient: QUALITY Stroke Symptom Onset Unknown: No
[2020-12-12] MEDS: SENNOSIDES 1 TABLET PO SCH (21:05)
[2020-12-13] MEDS: 0.9 % SODIUM CHLORIDE 10 ML SYRINGE IV SCH ×3 (05:44→21:15)
[2020-12-13 07:22] LABS: Basophils # (Auto) 0.03 K/mcL (0.00-0.30); Basophils % (Auto) 0.4 % (0.0-2.0); Eosinophils % (Auto) 1.3 % (0.0-7.0); Hematocrit 32.6 % (40.1-51.0); Hemoglobin 10.4 g/dL (13.7-17.5); Lymphocytes # (Auto) 0.54 K/mcL (1.50-4.80); Lymphocytes % (Auto) 7.2 % (15.5-49.0); Mean Cell Volume 78.6 fL (80.0-100.0); Mean Corpuscular HGB Conc 31.9 g/dL (31.0-36.0); Mean Platelet Volume 10.8 fL (7.4-10.4); Monocytes # (Auto) 0.71 K/mcL (0.10-0.90); Monocytes % (Auto) 9.5 % (1.0-12.0); Neutrophils % (Auto) 81.6 % (38.0-78.0); Platelet Count 154 K/mcL (140-440); RBC 4.15 M/mcL (4.63-6.08); Red Cell Distribution Width 20.2 % (11.5-14.5); WBC 7.5 K/mcL (4.5-11.0)
[2020-12-13] MEDS: FUROSEMIDE 40 MG/4 ML VIAL IV SCH ×2 (07:24→15:43)
[2020-12-13] MEDS: INSULIN LISPRO 1 UNIT/0.01 ML UNIT SQ SCH ×4 (07:32→21:14)
[2020-12-13 07:59] LABS: ALT/SGPT 26 U/L (<40); AST/SGOT 24 U/L (<40); Albumin 3.2 gm/dL (3.2-5.2); Albumin/Globulin Ratio 1.1 (1.0-2.3); Alkaline Phosphatase 104 U/L (39-117); Bilirubin,Total 1.5 mg/dL (0.1-1.0); Blood Urea Nitrogen 57 mg/dL (8-23); Calcium 9.2 mg/dL (8.6-10.4); Carbon Dioxide 23 mmol/L (22-30); Chloride 106 mmol/L (96-108); Globulin 2.9 gm/dL (2.2-3.7); Glomerular Filtration Rate 31; Glucose 81 mg/dL (70-105)
[2020-12-13] MEDS: APIXABAN 5 MG TABLET PO SCH ×2 (10:49→21:14)
[2020-12-13] MEDS: DOCUSATE SODIUM 100 MG CAPSULE PO SCH ×2 (10:49→21:14)
[2020-12-13] MEDS: cefTRIAXone 1 GM VIAL IV SCH (10:50)
--- NOTE | 2020-12-13 15:10 | Internal Med Progress Note ---
SUBJECTIVE Subjective Patient information: Note initiated : 12/13/20 at 3:04 pm Service Date, if different from initiated Date: [] Patient: Honorio Byrd 89 y/o M admitted on 12/11/20 for altered mental status x 3 days. Chief Complaint: [CHF exacerbation, right elbow cellulitis/septic joint] Interval history: History of present illness: Mr. Byrd is a 89 year old M alf resident ([facility]), h/o congestive heart failure, essential hypert ension's, chronic kidney disease stage IV, atrial fibrillation, type 2 diabetes mellitus, presenting with 4-day history of general body weakness, altered mental status, increasing shortness of breath, extremity edema's, and pain swelling and erythema of the right elbow for 4 to 5 months. History severely limited by patient's clinical situations as well as lack of alf staff available. Vital signs are within normal limits. Labs significant for lack of leukocytosis with WBC 9.6. Serum BNP 18,000. Urine analysis suggestive of urinary tract infections. Chest x-ray suggestive of the presence of pulmonary edema. Right elbow x-ray showing cellulitis surrounding the elbow and upper forearm. No evidence of osteomyelitis or joint effusions. Radiologist assist aspirations of right elbow with proximately 2 cc of joint fluid aspirate. Patient currently denies any right elbow pain. 12/12: Afebrile overnight. Now tolerating room air. Good urine output. Blood urine and aspirate culture no growth to date. Aspirate cell WBC [id number], could be a case of septic joint. Subjective not obtained due to clinical situations. 12/13: Afebrile. Been on 2L/min oxygen. Wound culture growing kirkland sensitive MSSA. Blood culture no growth to date. Denies fever or chills. Denies SOB. Denies cough or wheezing. Denies right elbow pain. Constitutional Vitals: Vital Signs Temp Pulse Resp BP Pulse Ox 36.3 C 70 18 100/65 96 12/13/20 11:42 12/13/20 11:42 12/13/20 11:42 12/13/20 11:42 12/13/20 11:42 Period Temp Pulse Resp BP Sys/Steven Pulse Ox Last 24 Hr 35.9 C-36.4 C 65-72 14-20 88-101/58-70 92-100 Intake and Output 12/13/20 12/13/20 12/13/20 05:59 13:59 21:59 Intake Total 100 Output Total 350 Balance -250 Intake & Output: Intake & Output 12/13/20 12/13/20 12/13/20 05:59 13:59 21:59 Intake Total 100 Output Total 350 Balance -250 Intake: Oral 100 Output: Urine Catheter Amount 350 Other: Urine Appearance Clear Clear Sediment Uretheral (Cutler) Clear Sediment Urine Color Dark Yellow Straw Light Nadege Uretheral (Cutler) Straw Urine Odor Uretheral (Cutler) Normal General appearance: cooperative, disheveled and no acute distress Head Head exam: Present atraumatic and normocephalic Eye Eye exam: Present EOMI and PERRL ENT ENT exam: Present mucous membranes moist, normal exam and normal external ear exam Additional comments: Nasal cannula in place Neck Neck exam: Present normal inspection; Absent lymphadenopathy, tenderness and thyromegaly Respiratory Respiratory exam: Present rhonchi; Absent accessory muscle use, respiratory distress and wheezes Cardiovascular Cardiovascular exam: Present normal rate and rhythm; Absent JVD GI/Abdominal GI/Abdominal exam: Present normal bowel sounds and soft; Absent organomegaly and tenderness Rectal Rectal exam: Present deferred Additional comments: Cutler catheter in place Extremities Exam Extremities exam: Present full ROM, joint swelling, normal capillary refill and pedal edema; Absent normal inspection and tenderness Additional comments: erythema, swelling, and warmth to palpation of the right elbow 3+ pitting edema bilateral lower extremities up to abdomen Neurological Exam Neurological exam: Present alert, CN II-XII intact and oriented X3; Absent motor sensory deficit Psychiatric Psychiatric exam: Present normal affect and normal mood; Absent anxious and depressed Skin Skin exam: Present dry, erythema, intact and warm OBJ DATA Labs CBC & Chem 7: 12/13/20 06:05 12/13/20 06:05 Labs: Abnormal Lab Results 12/13/20 12/13/20 12/12/20 06:05 06:05 05:52 RBC 4.15 L Hgb 10.4 L Hct 32.6 L POC Hct MCV 78.6 L MCH 25.1 L MCHC RDW 20.2 H MPV 10.8 H Neut % (Auto) 81.6 H Lymph % (Auto) 7.2 L Lymph # (Auto) 0.54 L Absolute Neutrophils VBG Lactic Acid Anion Gap 17.0 H POC BUN BUN 57 H 50 H Creatinine 1.9 H 1.8 H POC Creatinine Glucose 65 L POC WB Ioniz Calcium Total Bilirubin 1.5 H 1.6 H NT-Pro-B Natriuret Pep Procalcitonin Urine Appearance Ur Leukocyte Esterase Urine WBC Synovial Neutrophils Synovial Uric Acid 12/12/20 12/12/20 12/12/20 05:52 01:30 01:30 RBC 4.27 L Hgb 10.8 L Hct 34.1 L POC Hct MCV 79.9 L MCH 25.3 L MCHC RDW 21.1 H MPV 10.6 H Neut % (Auto) 86.4 H Lymph % (Auto) 5.4 L Lymph # (Auto) 0.54 L Absolute Neutrophils 8.66 H VBG Lactic Acid 2.7 H Anion Gap POC BUN BUN Creatinine POC Creatinine Glucose POC WB Ioniz Calcium Total Bilirubin NT-Pro-B Natriuret Pep Procalcitonin 0.15 H Urine Appearance Ur Leukocyte Esterase Urine WBC Synovial Neutrophils Synovial Uric Acid 12/11/20 12/11/20 12/11/20 19:11 16:30 15:00 RBC Hgb Hct POC Hct MCV MCH MCHC RDW MPV Neut % (Auto) Lymph % (Auto) Lymph # (Auto) Absolute Neutrophils VBG Lactic Acid Anion Gap POC BUN BUN Creatinine POC Creatinine Glucose POC WB Ioniz Calcium Total Bilirubin NT-Pro-B Natriuret Pep 04726.0 H Procalcitonin Urine Appearance Hazy A Ur Leukocyte Esterase 75 A Urine WBC 5 H Synovial Neutrophils 82 H Synovial Uric Acid 11.2 H 12/11/20 12/11/20 15:00 15:00 RBC 4.39 L Hgb 10.8 L Hct 35.1 L POC Hct 40 L MCV MCH 24.6 L MCHC 30.8 L RDW 20.7 H MPV Neut % (Auto) 88.7 H Lymph % (Auto) 5.3 L Lymph # (Auto) 0.51 L Absolute Neutrophils 8.49 H VBG Lactic Acid Anion Gap POC BUN 54 H BUN 57 H Creatinine 1.9 H POC Creatinine 2.1 H Glucose POC WB Ioniz Calcium 1.08 L Total Bilirubin 1.5 H NT-Pro-B Natriuret Pep Procalcitonin Urine Appearance Ur Leukocyte Esterase Urine WBC Synovial Neutrophils Synovial Uric Acid Meds: Medications Acetaminophen (Acetaminophen 325 Mg Tablet) 650 mg PO Q6HP PRN; Protocol PRN Reason: Per Pain Protocol/Fever > 101 Last Admin: 12/12/20 21:05 Dose: 650 mg Documented by: Albuterol/Ipratropium (Ipratropium/Albuterol 3 Ml Ampul.Neb) 3 ml NEB Q4HRT PRN PRN Reason: Wheezing Apixaban (Apixaban 5 Mg Tablet) 2.5 mg PO BID [facility] Last Admin: 12/13/20 10:49 Dose: 2.5 mg Documented by: Ceftriaxone Sodium (Ceftriaxone 1 Gm Vial) 1 gm IV Q24H [facility] Last Admin: 12/13/20 10:50 Dose: 1 gm Documented by: Dextrose (Dextrose 50% 50 Ml Vial) 0 ml IV UD PRN PRN Reason: Hypoglycemia Diagnostic Test (Pha) (Accu-Chek 1 Each Strip) 1 each FS [facility] Last Admin: 12/13/20 12:09 Dose: 1 each Documented by: Docusate Sodium (Docusate Sodium 100 Mg Capsule) 100 mg PO BID [facility] Last Admin: 12/13/20 10:49 Dose: 100 mg Documented by: Furosemide (Furosemide 40 Mg/4 Ml Vial) 40 mg IV BIDD [facility] Last Admin: 12/13/20 07:24 Dose: 40 mg Documented by: Glucose (Dextrose 31 Gm Oral.Susp) 15 gm PO PRN PRN PRN Reason: Hypoglycemia Insulin Human Lispro (Insulin Lispro 1 Unit/0.01 Ml Unit) 0 unit SQ [facility]; Protocol Last Admin: 12/13/20 12:11 Dose: Not Given Documented by: Morphine Sulfate (Morphine 4 Mg/Ml Vial) 4 mg IV Q4HP PRN; Protocol PRN Reason: Per Pain Protocol Ondansetron HCl (Ondansetron 4 Mg/2 Ml Vial) 4 mg IV Q6HP PRN PRN Reason: Nausea And Vomiting Senna (Sennosides 1 Tablet) 2 tab PO HS [facility] Last Admin: 12/12/20 21:05 Dose: 2 tab Documented by: Sodium Chloride (0.9 % Sodium Chloride 10 Ml Syringe) 10 ml IV Q8 [facility] Last Admin: 12/13/20 13:14 Dose: 10 ml Documented by: Zolpidem Tartrate (Zolpidem 5 Mg Tablet) 5 mg PO HSP PRN PRN Reason: Insomnia A/P Assessment and plan (1) Atrial fibrillation: Status: Chronic Comment: Rate controlled, no anticoagulation as risk outweighs benefit Qualifiers: Atrial fibrillation type: unspecified Qualified Code(s): I48.91 - Un specified atrial fibrillation (2) Diabetes mellitus, type II: Status: Chronic (3) Hypertension: Status: Chronic (4) CKD (chronic kidney disease), stage IV: Status: Acute Comment: Obstructive uropathy has been ruled out. He has normal amounts of proteinuria. He has a mild increase in his blood eosinophils, and no concomitant increase in urine eosinophils This too early to tell but I suspect he has some sort of chronic interstitial process along with the normal aging of the kidneys. While his kidney function should be 60 cc/min it is only a third that at 20 cc/min and we hope to maintain this for the remainder of his life. (5) Anemia in stage 4 chronic kidney disease: Status: Acute (6) Cellulitis of right elbow: Status: Acute (7) UTI (urinary tract infection): Status: Acute (8) CHF exacerbation: Status: Acute Narrative A/P Narrative: Assessment and plan: 1. Congestive heart failure exacerbations: Stays in inpatient [facility] telemetry Strict intake and output measurement Daily weight 2 L/day fluid restrictions 2D echocardiogram: LVEF 40-45%, decreased from 50-55% from previous study, with moderate to severe aortic stenosis and severe pulmonary hypertension Supplemental oxygen titrate to achieve SPO2 above or equal to 92%, currently on 2L/min oxygen Continue beta-lorenza from home regiment Lisinopril 2.5mg PO daily Lasix 40 mg IV twice daily Cutler catheter insertions and catheter care Physical therapy Occupational Therapy Add Sildenafil 20mg PO TID 2. Right elbow cellulitis/bursitis with differential diagnosis of septic joint: Serial lactic acid Procalcitonin level Blood culture, no growth to date Wound culture: kirkland sensitive MSSA CBC with auto differential in the morning to trend WBC Joint aspirate fluid analysis including crystal analysis, uric acid, Gram stain and culture, cell count and differential-->WBC [id number], could be suggestive of septic joint Rocephin Tylenol as needed fever or mild pain Oxycodone as needed moderate pain Morphine IV as needed severe pain #3 urinary tract infections: Serial lactic acid Procalcitonin level Blood culture, no growth to date Urine culture, no growth to date CBC with auto differential in the morning to trend WBC Rocephin 4. Permanent atrial fibrillation's: Continue beta-lorenza for rate control [id number] score of 5, Eliquis 2.5mg PO BID renally adjusted dosage #5 hypertension's in chronic kidney disease stage IV with associated anemia: Currently normotensive Continue beta-lorenza from home regiment Add lisinopril as part of the management for CHF Lasix 40 mg IV twice daily Avoid nephrotoxic agent Saline lock Repeat CMP in the morning to trend kidney functions CBC with auto differential in the morning to trend H&H; transfuse PRBC if hemoglobin less than 7.0, active bleeding, or if patient becomes symptomatic #6 type 2 diabetes mellitus: Hemoglobin A1c Avoid oral hypoglycemics Low-dose correctional scale insulin Aspart AC HS Accu chek AC HS Hypoglycemia protocol Diabetic diet GI prophylaxis: Not currently indicated DVT prophylaxis: Eusebiaqutricia CODE STATUS: DNR/DNI Prognosis: Guarded Disposition: Inpatient MedSurg with telemetry Time Spent With Patient Time: Total time spent is greater than 50% in coordination of care (as documented) at patient's floor/unit and/or counseling patient: QUALITY Stroke Symptom Onset Unknown: No
[2020-12-13] MEDS: cefTRIAXone 1 GM in DEXTROSE 5% IN WATER 50 ML IV SCH (15:35)
[2020-12-13] MEDS: METOPROLOL TARTRATE 25 MG TABLET PO SCH ×2 (17:15→21:13)
[2020-12-13] MEDS: LISINOPRIL 2.5 MG TABLET PO SCH (17:15)
[2020-12-13] MEDS: FORMOTEROL 4.5 MCG PO SCH (21:14)
[2020-12-13] MEDS: SENNOSIDES 1 TABLET PO SCH (21:14)
[2020-12-13] MEDS: BUDESONIDE 160 MCG PO SCH (21:14)
[2020-12-14] MEDS: 0.9 % SODIUM CHLORIDE 10 ML SYRINGE IV SCH ×3 (05:47→21:25)
[2020-12-14 07:18] LABS: Basophils # (Auto) 0.03 K/mcL (0.00-0.30); Basophils % (Auto) 0.5 % (0.0-2.0); Eosinophils # (Auto) 0.09 K/mcL (0.00-0.70); Eosinophils % (Auto) 1.4 % (0.0-7.0); Hematocrit 34.6 % (40.1-51.0); Hemoglobin 11.1 g/dL (13.7-17.5); Lymphocytes # (Auto) 0.64 K/mcL (1.50-4.80); Mean Cell Volume 76.5 fL (80.0-100.0); Mean Corpuscular HGB Conc 32.1 g/dL (31.0-36.0); Monocytes # (Auto) 0.75 K/mcL (0.10-0.90); Monocytes % (Auto) 11.7 % (1.0-12.0); Neutrophils % (Auto) 76.4 % (38.0-78.0); Platelet Count 137 K/mcL (140-440); RBC 4.52 M/mcL (4.63-6.08); Red Cell Distribution Width 20.6 % (11.5-14.5); WBC 6.4 K/mcL (4.5-11.0)
[2020-12-14] MEDS: FUROSEMIDE 40 MG/4 ML VIAL IV SCH (07:26)
[2020-12-14] MEDS: INSULIN LISPRO 1 UNIT/0.01 ML UNIT SQ SCH ×4 (07:26→21:26)
[2020-12-14 07:43] LABS: ALT/SGPT 31 U/L (<40); AST/SGOT 32 U/L (<40); Albumin 3.1 gm/dL (3.2-5.2); Albumin/Globulin Ratio 0.9 (1.0-2.3); Alkaline Phosphatase 127 U/L (39-117); Bilirubin,Total 1.3 mg/dL (0.1-1.0); Blood Urea Nitrogen 67 mg/dL (8-23); Calcium 9.2 mg/dL (8.6-10.4); Carbon Dioxide 23 mmol/L (22-30); Chloride 102 mmol/L (96-108); Globulin 3.3 gm/dL (2.2-3.7); Glomerular Filtration Rate 24; Glucose 94 mg/dL (70-105)
[2020-12-14] MEDS: [UNRECOGNIZED DRUG - OTHER] PO SCH (08:56)
[2020-12-14] MEDS: FORMOTEROL 4.5 MCG PO SCH ×2 (08:56→21:26)
[2020-12-14] MEDS: BUDESONIDE 160 MCG PO SCH ×2 (08:56→21:26)
[2020-12-14] MEDS: METOPROLOL TARTRATE 25 MG TABLET PO SCH ×4 (09:00→21:34)
[2020-12-14] MEDS: LISINOPRIL 2.5 MG TABLET PO SCH ×2 (09:00→18:45)
[2020-12-14] MEDS: cefTRIAXone 1 GM VIAL IV SCH (09:10)
[2020-12-14] MEDS: CYANOCOBALAMIN (VITAMIN B-12) 500 MCG TABLET PO SCH (09:11)
[2020-12-14] MEDS: ASCORBIC ACID 500 MG TABLET PO SCH (09:11)
[2020-12-14] MEDS: VITAMIN D3 25 MCG TABLET PO SCH (09:12)
[2020-12-14] MEDS: APIXABAN 5 MG TABLET PO SCH ×2 (09:12→21:24)
[2020-12-14] MEDS: DOCUSATE SODIUM 100 MG CAPSULE PO SCH ×2 (09:13→21:24)
--- NOTE | 2020-12-14 11:04 | Internal Med Progress Note ---
SUBJECTIVE Subjective Patient information: Note initiated : 12/14/20 at 11:01 am Service Date, if different from initiated Date: [] Patient: Honorio Byrd a 89 y/o M admitted on 12/11/20 for altered mental status x 3 days. Chief Complaint: [CHF exacerbation] Interval history: History of present illness: Mr. 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 History severely limited by patient's clinical situations as well as lack of care home staff available. Vital signs are within normal limits. Labs significant for lack of leukocytosis with WBC 9.6. Serum BNP 18,000. Urine analysis suggestive of urinary tract infections. Chest x-ray suggestive of the presence of pulmonary edema. Right elbow x-ray showing cellulitis surrounding the elbow and upper forearm. No evidence of osteomyelitis or joint effusions. Radiologist assist aspirations of right elbow with proximately 2 cc of joint f luid aspirate. Patient currently denies any right elbow pain. 12/12: Afebrile overnight. Now tolerating room air. Good urine output. Blood urine and aspirate culture no growth to date. Aspirate cell WBC 40803, could be a case of septic joint. Subjective not obtained due to clinical situations. 12/13: Afebrile. Been on 2L/min oxygen. Wound culture growing kirkland sensitive MSSA. Blood culture no growth to date. Denies fever or chills. Denies SOB. Denies cough or wheezing. Denies right elbow pain. 12/14: Afebrile. Now tolerating room air. Wound culture growing kirkland sensitive MSSA. Blood culture no growth to date. Denies fever or chills. Denies SOB. Denies cough or wheezing. Denies right elbow pain. Constitutional Vitals: Vital Signs Temp Pulse Resp BP Pulse Ox 37.1 C 77 18 103/70 90 12/14/20 06:25 12/14/20 06:25 12/14/20 06:25 12/14/20 06:25 12/14/20 06:25 Period Temp Pulse Resp BP Sys/Steven Pulse Ox Last 24 Hr 36.2 C-37.1 C 61-77 12-20 88-103/56-70 90-96 Intake and Output 12/13/20 12/14/20 12/14/20 21:59 05:59 13:59 Intake Total 240 800 Output Total 425 550 Balance -185 250 Weight 116.12 kg Intake & Output: Intake & Output 12/13/20 12/14/20 12/14/20 21:59 05:59 13:59 Intake Total 240 800 Output Total 425 550 Balance -185 250 Weight 116.12 kg Intake: Oral 240 800 Output: Urine Catheter Amount 425 550 Other: Meal Dinner Percent of Meal Consumed 75% Feeding Ability Assist with Tray Set Up Urine Appearance Cloudy Clear Sediment Uretheral (Cutler) Clear Urine Color Dark Yellow Tea Colored Uretheral (Cutler) Dark Yellow General appearance: cooperative, disheveled and no acute distress Head Head exam: Present atraumatic and normocephalic Eye Eye exam: Present EOMI and PERRL ENT ENT exam: Present mucous membranes moist, normal exam and normal external ear ex am Neck Neck exam: Present normal inspection; Absent lymphadenopathy, tenderness and thyromegaly Respiratory Respiratory exam: Absent accessory muscle use, respiratory distress and wheezes Cardiovascular Cardiovascular exam: Present irregular rhythm; Absent JVD GI/Abdominal GI/Abdominal exam: Present normal bowel sounds and soft; Absent organomegaly and tenderness Rectal Rectal exam: Present deferred Extremities Exam Extremities exam: Present full ROM, normal capillary refill and pedal edema; Absent normal inspection and tenderness Additional comments: Cutler catheter in place Neurological Exam Neurological exam: Present alert, CN II-XII intact and oriented X3; Absent motor sensory deficit Psychiatric Psychiatric exam: Present normal affect and normal mood; Absent anxious and depressed Skin Skin exam: Present dry, erythema, intact, rash and warm OBJ DATA Labs CBC & Chem 7: 12/14/20 05:47 12/14/20 05:47 Labs: Abnormal Lab Results 12/14/20 12/14/20 12/13/20 05:47 05:47 06:05 RBC 4.52 L Hgb 11.1 L Hct 34.6 L POC Hct MCV 76.5 L MCH 24.6 L MCHC RDW 20.6 H Plt Count 137 L MPV Neut % (Auto) Lymph % (Auto) 10.0 L Lymph # (Auto) 0.64 L Absolute Neutrophils VBG Lactic Acid Anion Gap POC BUN BUN 67 H 57 H Creatinine 2.3 H 1.9 H POC Creatinine Glucose POC WB Ioniz Calcium Total Bilirubin 1.3 H 1.5 H Alkaline Phosphatase 127 H NT-Pro-B Natriuret Pep Albumin 3.1 L Albumin/Globulin Ratio 0.9 L Procalcitonin Urine Appearance Ur Leukocyte Esterase Urine WBC Synovial Neutrophils Synovial Uric Acid 12/13/20 12/12/20 12/12/20 06:05 05:52 05:52 RBC 4.15 L 4.27 L Hgb 10.4 L 10.8 L Hct 32.6 L 34.1 L POC Hct MCV 78.6 L 79.9 L MCH 25.1 L 25.3 L MCHC RDW 20.2 H 21.1 H Plt Count MPV 10.8 H 10.6 H Neut % (Auto) 81.6 H 86.4 H Lymph % (Auto) 7.2 L 5.4 L Lymph # (Auto) 0.54 L 0.54 L Absolute Neutrophils 8.66 H VBG Lactic Acid Anion Gap 17.0 H POC BUN BUN 50 H Creatinine 1.8 H POC Creatinine Glucose 65 L POC WB Ioniz Calcium Total Bilirubin 1.6 H Alkaline Phosphatase NT-Pro-B Natriuret Pep Albumin Albumin/Globulin Ratio Procalcitonin Urine Appearance Ur Leukocyte Esterase Urine WBC Synovial Neutrophils Synovial Uric Acid 12/12/20 12/12/20 12/11/20 01:30 01:30 19:11 RBC Hgb Hct POC Hct MCV MCH MCHC RDW Plt Count MPV Neut % (Auto) Lymph % (Auto) Lymph # (Auto) Absolute Neutrophils VBG Lactic Acid 2.7 H Anion Gap POC BUN BUN Creatinine POC Creatinine Glucose POC WB Ioniz Calcium Total Bilirubin Alkaline Phosphatase NT-Pro-B Natriuret Pep Albumin Albumin/Globulin Ratio Procalcitonin 0.15 H Urine Appearance Ur Leukocyte Esterase Urine WBC Synovial Neutrophils 82 H Synovial Uric Acid 11.2 H 12/11/20 12/11/20 12/11/20 16:30 15:00 15:00 RBC Hgb Hct POC Hct 40 L MCV MCH MCHC RDW Plt Count MPV Neut % (Auto) Lymph % (Auto) Lymph # (Auto) Absolute Neutrophils VBG Lactic Acid Anion Gap POC BUN 54 H BUN 57 H Creatinine 1.9 H POC Creatinine 2.1 H Glucose POC WB Ioniz Calcium 1.08 L Total Bilirubin 1.5 H Alkaline Phosphatase NT-Pro-B Natriuret Pep 89610.0 H Albumin Albumin/Globulin Ratio Procalcitonin Urine Appearance Hazy A Ur Leukocyte Esterase 75 A Urine WBC 5 H Synovial Neutrophils Synovial Uric Acid 12/11/20 15:00 RBC 4.39 L Hgb 10.8 L Hct 35.1 L POC Hct MCV MCH 24.6 L MCHC 30.8 L RDW 20.7 H Plt Count MPV Neut % (Auto) 88.7 H Lymph % (Auto) 5.3 L Lymph # (Auto) 0.51 L Absolute Neutrophils 8.49 H VBG Lactic Acid Anion Gap POC BUN BUN Creatinine POC Creatinine Glucose POC WB Ioniz Calcium Total Bilirubin Alkaline Phosphatase NT-Pro-B Natriuret Pep Albumin Albumin/Globulin Ratio Procalcitonin Urine Appearance Ur Leukocyte Esterase Urine WBC Synovial Neutrophils Synovial Uric Acid Meds: Medications Acetaminophen (Acetaminophen 325 Mg Tablet) 650 mg PO Q6HP PRN; Protocol PRN Reason: Per Pain Protocol/Fever > 101 Last Admin: 12/12/20 21:05 Dose: 650 mg Documented by: Albuterol/Ipratropium (Ipratropium/Albuterol 3 Ml Ampul.Neb) 3 ml NEB Q4HRT PRN PRN Reason: Wheezing Apixaban (Apixaban 5 Mg Tablet) 2.5 mg PO BID [facility] Last Admin: 12/14/20 09:12 Dose: 2.5 mg Documented by: Ascorbic Acid (Ascorbic Acid 500 Mg Tablet) 500 mg PO DAILY [facility] Last Admin: 12/14/20 09:11 Dose: 500 mg Documented by: Bisacodyl (Bisacodyl 10 Mg Supp.Rect) 10 mg MO DAILYP PRN PRN Reason: Constipation Ceftriaxone Sodium (Ceftriaxone 1 Gm Vial) 1 gm IV Q24H [facility] Last Admin: 12/14/20 09:10 Dose: 1 gm Documented by: Cyanocobalamin (Cyanocobalamin (Vitamin B-12) 500 Mcg Tablet) 1,000 mcg PO DAILY [facility] Last Admin: 12/14/20 09:11 Dose: 1,000 mcg Documented by: Dextrose (Dextrose 50% 50 Ml Vial) 0 ml IV UD PRN PRN Reason: Hypoglycemia Diagnostic Test (Pha) (Accu-Chek 1 Each Strip) 1 each FS [facility] Last Admin: 12/14/20 07:24 Dose: 1 each Documented by: Docusate Sodium (Docusate Sodium 100 Mg Capsule) 100 mg PO BID [facility] Last Admin: 12/14/20 09:13 Dose: 100 mg Documented by: Furosemide (Furosemide 40 Mg Tablet) 40 mg PO BIDD [facility] Glucose (Dextrose 31 Gm Oral.Susp) 15 gm PO PRN PRN PRN Reason: Hypoglycemia Insulin Human Lispro (Insulin Lispro 1 Unit/0.01 Ml Unit) 0 unit SQ [facility]; Protocol Last Admin: 12/14/20 07:26 Dose: Not Given Documented by: Lisinopril (Lisinopril 2.5 Mg Tablet) 2.5 mg PO DAILY [facility] Last Admin: 12/14/20 09:00 Dose: Not Given Documented by: Metoprolol Tartrate (Metoprolol Tartrate 25 Mg Tablet) 12.5 mg PO BID [facility] Last Admin: 12/14/20 09:00 Dose: Not Given Documented by: Morphine Sulfate (Morphine 4 Mg/Ml Vial) 4 mg IV Q4HP PRN; Protocol PRN Reason: Per Pain Protocol Non-Formulary Medication (Budesonide-Formoterol [Symbicort]) 1 puff INHALATION BID [facility] Ondansetron HCl (Ondansetron 4 Mg/2 Ml Vial) 4 mg IV Q6HP PRN PRN Reason: Nausea And Vomiting Oxycodone HCl (Oxycodone Hcl 5 Mg Tablet) 5 mg PO Q6HP PRN; Protocol PRN Reason: Pain Sildenafil 20 Mg (Tablet) 1 dose PO TID [facility] Last Admin: 12/14/20 08:57 Dose: Not Given Documented by: Iron Ag,[id number] -Zn-Sa-Sto [Niferex (Sumalate- Quatrefolic)] Tablet 1 dose PO DAILY [facility] Last Admin: 12/14/20 08:56 Dose: Not Given Documented by: Budesonide 160 Mcg- Formoterol 4.5 Mcg ( Symbicort) Aerosol Inhaler 1 dose PO BID [facility] Last Admin: 12/14/20 08:56 Dose: Not Given Documented by: Senna (Sennosides 1 Tablet) 2 tab PO [facility] Last Admin: 12/13/20 21:14 Dose: 2 tab Documented by: Sodium Chloride (0.9 % Sodium Chloride 10 Ml Syringe) 10 ml IV Q8 [facility] Last Admin: 12/14/20 05:47 Dose: 10 ml Documented by: Vitamin D (Vitamin D3 1,000 Unit Tablet) 2,000 unit PO DAILY [facility] Last Admin: 12/14/20 09:12 Dose: 2,000 unit Documented by: Zolpidem Tartrate (Zolpidem 5 Mg Tablet) 5 mg PO HSP PRN PRN Reason: Insomnia A/P Assessment and plan (1) Atrial fibrillation: Status: Chronic Comment: Rate controlled, no anticoagulation as risk outweighs benefit Qualifiers: Atrial fibrillation type: unspecified Qualified Code(s): I48.91 - Unspecified atrial fibrillation (2) Diabetes mellitus, type II: Status: Chronic (3) Hypertension: Status: Chronic (4) CKD (chronic kidney disease), stage IV: Status: Acute Comment: Obstructive uropathy has been ruled out. He has normal amounts of proteinuria. He has a mild increase in his blood eosinophils, and no concomitant increase in urine eosinophils This too early to tell but I suspect he has some sort of chronic interstitial process along with the normal aging of the kidneys. While his kidney function should be 60 cc/min it is only a third that at 20 cc/min and we hope to maintain this for the remainder of his life. (5) Anemia in stage 4 chronic kidney disease: Status: Acute (6) Cellulitis of right elbow: Status: Acute (7) UTI (urinary tract infection): Status: Acute (8) CHF exacerbation: Status: Acute Narrative A/P Narrative: Assessment and plan: 1. Congestive heart failure exacerbations: Stays in inpatient [facility] telemetry Strict intake and output measurement Daily weight 2 L/day fluid restrictions 2D echocardiogram: LVEF 40-45%, decreased from 50-55% from previous study, with moderate to severe aortic stenosis and severe pulmonary hypertension Supplemental oxygen titrate to achieve SPO2 above or equal to 92%, currently on room air Continue beta-lorenza from home regiment Lisinopril 2.5mg PO daily Switch Lasix from 40mg IV BID to 40mg PO BID Cutler catheter insertions and catheter care Physical therapy Occupational Therapy Add Sildenafil 20mg PO TID 2. Right elbow cellulitis/bursitis with differential diagnosis of septic joint: Serial lactic acid Procalcitonin level Blood culture, no growth to date Wound culture: kirkland sensitive MSSA CBC with auto differential in the morning to trend WBC Joint aspirate fluid analysis including crystal analysis, uric acid, Gram stain and culture, cell count and differential-->WBC [id number], could be suggestive of septic joint Rocephin Tylenol as needed fever or mild pain Oxycodone as needed moderate pain Morphine IV as needed severe pain #3 urinary tract infections: Serial lactic acid Procalcitonin level Blood culture, no growth to date Urine culture, no growth to date CBC with auto differential in the morning to trend WBC Rocephin 4. Permanent atrial fibrillation's: Continue beta-lorenza for rate control [id number] score of 5, Eliquis 2.5mg PO BID renally adjusted dosage #5 hypertension's in chronic kidney disease stage IV with associated anemia: Currently normotensive Continue beta-lorenza from home regiment Add lisinopril as part of the management for CHF Switch Lasix from 40mg IV BID to 40mg PO BID Avoid nephrotoxic agent Saline lock Repeat CMP in the morning to trend kidney functions CBC with auto differential in the morning to trend H&H; transfuse PRBC if hemoglobin less than 7.0, active bleeding, or if patient becomes symptomatic #6 type 2 diabetes mellitus: Hemoglobin A1c Avoid oral hypoglycemics Low-dose correctional scale insulin Aspart AC HS Accu chek AC HS Hypoglycemia protocol Diabetic diet GI prophylaxis: Not currently indicated DVT prophylaxis: Geovanna CODE STATUS: DNR/DNI Prognosis: Guarded Disposition: Inpatient MedSurg with telemetry Time Spent With Patient Time: Total time spent is greater than 50% in coordination of care (as documented) at patient's floor/unit and/or counseling patient: QUALITY Stroke Symptom Onset Unknown: No
[2020-12-14] MEDS: FUROSEMIDE 40 MG TABLET PO SCH (16:56)
[2020-12-14] MEDS ORDERED: NON FORMULARY MEDICATION 1 DOSE MISCELL (Budesonide-Formoterol [Symbicort] 160-4.5 mcg/act INHALATION SCH (21:00)
[2020-12-14] MEDS: SENNOSIDES 1 TABLET PO SCH (21:24)
[2020-12-15] MEDS: 0.9 % SODIUM CHLORIDE 10 ML SYRINGE IV SCH ×3 (04:24→21:11)
[2020-12-15 06:53] LABS: ALT/SGPT 25 U/L (<40); AST/SGOT 23 U/L (<40); Albumin 2.9 gm/dL (3.2-5.2); Alkaline Phosphatase 113 U/L (39-117); Bilirubin,Direct 0.7 mg/dL (<0.3); Bilirubin,Total 1.3 mg/dL (0.1-1.0); Blood Urea Nitrogen 62 mg/dL (8-23); Calcium 8.8 mg/dL (8.6-10.4); Carbon Dioxide 25 mmol/L (22-30); Chloride 101 mmol/L (96-108); Glomerular Filtration Rate 33; Glucose 93 mg/dL (70-105); Lactate Dehydrogenase 241 U/L (135-225); Phosphorous 3.5 mg/dL (2.5-4.5); Triglycerides 67 mg/dL (<150); Uric Acid 12.7 mg/dL (2.5-8.0)
[2020-12-15] MEDS: INSULIN LISPRO 1 UNIT/0.01 ML UNIT SQ SCH ×4 (07:39→21:09)
[2020-12-15] MEDS: BUDESONIDE 160 MCG PO SCH ×2 (08:03→21:11)
[2020-12-15] MEDS: [UNRECOGNIZED DRUG - OTHER] PO SCH (08:03)
[2020-12-15] MEDS: FORMOTEROL 4.5 MCG PO SCH ×2 (08:03→21:11)
[2020-12-15] MEDS: APIXABAN 5 MG TABLET PO SCH ×2 (08:59→21:10)
[2020-12-15] MEDS: VITAMIN D3 25 MCG TABLET PO SCH (09:00)
[2020-12-15] MEDS: ASCORBIC ACID 500 MG TABLET PO SCH (09:00)
[2020-12-15] MEDS: FUROSEMIDE 40 MG TABLET PO SCH ×2 (09:00→16:54)
[2020-12-15] MEDS: CYANOCOBALAMIN (VITAMIN B-12) 500 MCG TABLET PO SCH (09:00)
[2020-12-15] MEDS: DOCUSATE SODIUM 100 MG CAPSULE PO SCH ×2 (09:00→21:09)
[2020-12-15] MEDS: cefTRIAXone 1 GM VIAL IV SCH (09:01)
[2020-12-15] MEDS: LISINOPRIL 2.5 MG TABLET PO SCH (11:10)
[2020-12-15] MEDS: METOPROLOL SUCCINATE 25 MG TAB.XL.24H PO SCH (11:24)
--- NOTE | 2020-12-15 19:35 | Internal Med Progress Note ---
SUBJECTIVE Subjective Patient information: Note initiated : 12/15/20 at 7:35 pm Service Date, if different from initiated Date: [] Patient: Honorio Byrd a 89 y/o M admitted on 12/11/20 for altered mental status x 3 days. Chief Complaint: f/u CHF Interval history: Mr. Byrd is a 89 year old [facility] ([employer]), h/o congestive heart failure, essential hypertension, chronic kidney disease stage IV, atrial fibrillation, type 2 diabetes mellitus, presenting with 4-day history of general body weakness, altered mental status, increasing shortness of breath, extremity edema, and pain swelling and erythema of the right elbow for 4 to 5 months. History severely limited by patient's clinical situations as well as lack of [facility] staff available. Vital signs are within normal limits. Labs significant for lack of leukocytosis with WBC 9.6. Serum BNP 18,000. Urine analysis suggestive of urinary tract infections. Chest x-ray suggestive of the presence of pulmonary edema. Right elbow x-ray showing cellulitis surrounding the elbow and upper forearm. No evidence of osteomyelitis or joint effusions. Radiologist assist aspirations of right elbow with proximately 2 cc of joint fluid aspirate. Patient currently denies any right elbow pain. 12/12: Afebrile overnight. Now tolerating room air. Good urine output. Blood urine and aspirate culture no growth to date. Aspirate cell WBC [id number], could be a case of septic joint. Subjective not obtained due to clinical situations. 12/13: Afebrile. Been on 2L/min oxygen. Wound culture growing kirkland sensitive MSSA. Blood culture no growth to date. Denies fever or chills. Denies SOB. Denies cough or wheezing. Denies right elbow pain. 12/14: Afebrile. Now tolerating room air. Wound culture growing kirkland sensitive MSSA. Blood culture no growth to date. Denies fever or chills. Denies SOB. Denies cough or wheezing. Denies right elbow pain. 12/15: Feels fairly well today. Did work with physical therapy. Unclear if he is approaching his baseline. Still with lower extremity edema. Spoke with Dr. Tang who aspirated the elbow, there was purulent material from both superf icial and within the joint. The patient notes his elbow is feeling improved. Constitutional Vitals: Vital Signs Temp Pulse Resp BP Pulse Ox 96.9 F L 62 20 102/66 95 12/15/20 15:45 12/15/20 15:45 12/15/20 15:45 12/15/20 15:45 12/15/20 15:45 Period Temp Pulse Resp BP Sys/Steven Pulse Ox Last 24 Hr 96.9 F-97.6 F 62-84 14-20 99-109/66-77 92-98 Intake and Output 12/15/20 12/15/20 12/15/20 05:59 13:59 21:59 Intake Total 350 480 Output Total 1300 1300 Balance -950 -820 Weight 251 lb 9 oz Patient Weight 12/16/20 05:59 Weight 251 lb 9 oz Intake & Output: Intake & Output 12/15/20 12/15/20 12/15/20 05:59 13:59 21:59 Intake Total 350 480 Output Total 1300 1300 Balance -950 -820 Weight 251 lb 9 oz Intake: Oral 350 480 Output: Urine Catheter Amount 1300 1300 Other: Meal Breakfast Percent of Meal Consumed 75% Feeding Ability Assist with Tray Set Up Urine Appearance Clear Cloudy Urine Color Pale Bright Yellow GENERAL: Sitting in bed no acute distress RESPIRATORY: Diminished at the bases bilaterally, no rales CARDIOVASCULAR: Regular ABDOMEN: Soft, nontender EXTREMITIES: Right elbow with mild surrounding erythema, normal range of motion. Bilateral lower extremities with 2+ edema NEURO: Alert, oriented, speech is slow. Generalized weakness noted OBJ DATA Labs CBC & Chem 7: 12/14/20 05:47 12/15/20 05:32 Labs: Abnormal Lab Results 12/15/20 12/14/20 12/14/20 05:32 05:47 05:47 RBC 4.52 L Hgb 11.1 L Hct 34.6 L MCV 76.5 L MCH 24.6 L RDW 20.6 H Plt Count 137 L MPV Neut % (Auto) Lymph % (Auto) 10.0 L Lymph # (Auto) 0.64 L BUN 62 H 67 H Creatinine 1.8 H 2.3 H Uric Acid 12.7 H Total Bilirubin 1.3 H 1.3 H Direct Bilirubin 0.7 H Alkaline Phosphatase 127 H Lactate Dehydrogenase 241 H Albumin 2.9 L 3.1 L Albumin/Globulin Ratio 0.9 L 12/13/20 12/13/20 06:05 06:05 RBC 4.15 L Hgb 10.4 L Hct 32.6 L MCV 78.6 L MCH 25.1 L RDW 20.2 H Plt Count MPV 10.8 H Neut % (Auto) 81.6 H Lymph % (Auto) 7.2 L Lymph # (Auto) 0.54 L BUN 57 H Creatinine 1.9 H Uric Acid Total Bilirubin 1.5 H Direct Bilirubin Alkaline Phosphatase Lactate Dehydrogenase Albumin Albumin/Globulin Ratio Microbiology 12/11/20 15:00 Blood Culture - Preliminary Blood 12/11/20 14:58 Blood Culture - Preliminary Blood 12/13/20 08:27 Blood Culture - Preliminary Blood 12/13/20 06:05 Blood Culture - Preliminary Blood 12/12/20 01:35 Urine Culture - Final Urine - Catheterized 12/11/20 19:12 Gram Stain - Final Aspirate - Elbow Body Fluid Culture - Final Staphylococcus aureus 12/11/20 21:09 SARS-CoV-2 by PCR (LUCY) - Final Nasopharynx Meds: Medications Acetaminophen (Acetaminophen 325 Mg Tablet) 650 mg PO Q6HP PRN; Protocol PRN Reason: Per Pain Protocol/Fever > 101 Last Admin: 12/12/20 21:05 Dose: 650 mg Documented by: Albuterol/Ipratropium (Ipratropium/Albuterol 3 Ml Ampul.Neb) 3 ml NEB Q4HRT PRN PRN Reason: Wheezing Apixaban (Apixaban 5 Mg Tablet) 2.5 mg PO BID [facility] Last Admin: 12/15/20 08:59 Dose: 2.5 mg Documented by: Ascorbic Acid (Ascorbic Acid 500 Mg Tablet) 500 mg PO DAILY [facility] Last Admin: 12/15/20 09:00 Dose: 500 mg Documented by: Bisacodyl (Bisacodyl 10 Mg Supp.Rect) 10 mg HI DAILYP PRN PRN Reason: Constipation Ceftriaxone Sodium (Ceftriaxone 1 Gm Vial) 1 gm IV Q24H [facility] Last Admin: 12/15/20 09:01 Dose: 1 gm Documented by: Cyanocobalamin (Cyanocobalamin (Vitamin B-12) 500 Mcg Tablet) 1,000 mcg PO DAILY [facility] Last Admin: 12/15/20 09:00 Dose: 1,000 mcg Documented by: Dextrose (Dextrose 50% 50 Ml Vial) 0 ml IV UD PRN PRN Reason: Hypoglycemia Diagnostic Test (Pha) (Accu-Chek 1 Each Strip) 1 each FS ACHS [facility] Last Admin: 12/15/20 16:54 Dose: 1 each Documented by: Docusate Sodium (Docusate Sodium 100 Mg Capsule) 100 mg PO BID [facility] Last Admin: 12/15/20 09:00 Dose: 100 mg Documented by: Furosemide (Furosemide 40 Mg Tablet) 40 mg PO BIDD [facility] Last Admin: 12/15/20 16:54 Dose: 40 mg Documented by: Glucose (Dextrose 31 Gm Oral.Susp) 15 gm PO PRN PRN PRN Reason: Hypoglycemia Insulin Human Lispro (Insulin Lispro 1 Unit/0.01 Ml Unit) 0 unit SQ [facility]; Protocol Last Admin: 12/15/20 17:00 Dose: Not Given Documented by: Lisinopril (Lisinopril 2.5 Mg Tablet) 2.5 mg PO DAILY [facility] Last Admin: 12/15/20 11:10 Dose: Not Given Documented by: Metoprolol Succinate (Metoprolol Succinate 25 Mg Tab.Xl.24h) 25 mg PO DAILY [facility] Last Admin: 12/15/20 11:24 Dose: 25 mg Documented by: Morphine Sulfate (Morphine 4 Mg/Ml Vial) 4 mg IV Q4HP PRN; Protocol PRN Reason: Per Pain Protocol Ondansetron HCl (Ondansetron 4 Mg/2 Ml Vial) 4 mg IV Q6HP PRN PRN Reason: Nausea And Vomiting Oxycodone HCl (Oxycodone Hcl 5 Mg Tablet) 5 mg PO Q6HP PRN; Protocol PRN Reason: Pain Sildenafil 20 Mg (Tablet) 1 dose PO TID [facility] Last Admin: 12/15/20 14:15 Dose: Not Given Documented by: Iron Ag,[id number] -Zn-Sa-Sto [Niferex (Sumalate- Quatrefolic)] Tablet 1 dose PO DAILY [facility] Last Admin: 12/15/20 08:03 Dose: Not Given Documented by: Budesonide 160 Mcg- Formoterol 4.5 Mcg ( Symbicort) Aerosol Inhaler 1 dose PO BID [facility] Last Admin: 12/15/20 08:03 Dose: Not Given Documented by: Senna (Sennosides 1 Tablet) 2 tab PO HS [facility] Last Admin: 12/14/20 21:24 Dose: 2 tab Documented by: Sodium Chloride (0.9 % Sodium Chloride 10 Ml Syringe) 10 ml IV Q8 [facility] Last Admin: 12/15/20 16:54 Dose: 10 ml Documented by: Vitamin D (Vitamin D3 1,000 Unit Tablet) 2,000 unit PO DAILY [facility] Last Admin: 12/15/20 09:00 Dose: 2,000 unit Documented by: Zolpidem Tartrate (Zolpidem 5 Mg Tablet) 5 mg PO HSP PRN PRN Reason: Insomnia A/P Narrative A/P Narrative: Assessment: Acute on chronic heart failure with reduced ejection fraction -Echocardiogram with LVEF 40-45%, decreased from 50-55% previously; moderate to severe aortic stenosis and severe pulmonary hypertension -On beta-lorenza and low-dose MAYCOL inhibitor -Diuresed well with IV furosemide -Trialing stability with oral furosemide Right elbow cellulitis/bursitis and intra-articular infection -Purulent material aspirated from the bursal area as well as intra-articular -Cultures growing MSSA -On ceftriaxone -Likely needs 4 weeks of therapy -Consider changing to oral at discharge (no data to suggest IV superior to p.o.) -Blood cultures no growth to date Urinary tract infection-ruled out -Urine culture no growth to date Permanent atrial fibrillation -On metoprolol for rate control -[id number] score of 5, Eliquis 2.5mg PO BID renally adjusted dosage Chronic kidney disease stage IV with associated anemia -Currently normotensive -Continue beta-lorenza from home regiment -Added lisinopril as part of the management for CHF Type 2 diabetes mellitus -Low-dose correctional scale insulin Aspart AC HS -Accu chek AC HS -Diabetic diet Plan: * Continue diuresis * Monitor intake and output * Continue ceftriaxone * Will need prolonged antibiotics, though given improvement may be able to treat orally (no data showing IV superior to oral) * Continue to follow creatinine * Continue with current treatment of diabetes * Stop sildenafil, patient's pulmonary hypertension likely secondary to elevated left-sided pressures, not amenable to PDE inhibitors * Continue PT and OT * Likely stable for discharge in 1-2 days QUALITY Stroke Symptom Onset Unknown: No
[2020-12-15] MEDS: SENNOSIDES 1 TABLET PO SCH (21:09)
[2020-12-16] MEDS: 0.9 % SODIUM CHLORIDE 10 ML SYRINGE IV SCH ×3 (06:43→20:43)
[2020-12-16 07:18] LABS: Blood Urea Nitrogen 64 mg/dL (8-23); Calcium 8.6 mg/dL (8.6-10.4); Carbon Dioxide 25 mmol/L (22-30); Chloride 101 mmol/L (96-108); Glomerular Filtration Rate 33; Glucose 73 mg/dL (70-105)
[2020-12-16] MEDS: INSULIN LISPRO 1 UNIT/0.01 ML UNIT SQ SCH ×4 (07:38→20:41)
[2020-12-16] MEDS: ASCORBIC ACID 500 MG TABLET PO SCH (08:22)
[2020-12-16] MEDS: FUROSEMIDE 40 MG TABLET PO SCH ×2 (08:22→15:58)
[2020-12-16] MEDS: APIXABAN 5 MG TABLET PO SCH ×2 (08:22→20:28)
[2020-12-16] MEDS: VITAMIN D3 25 MCG TABLET PO SCH (08:22)
[2020-12-16] MEDS: DOCUSATE SODIUM 100 MG CAPSULE PO SCH ×2 (08:22→20:29)
[2020-12-16] MEDS: CYANOCOBALAMIN (VITAMIN B-12) 500 MCG TABLET PO SCH (08:22)
[2020-12-16] MEDS: cefTRIAXone 1 GM VIAL IV SCH (08:22)
[2020-12-16] MEDS: [UNRECOGNIZED DRUG - OTHER] PO SCH (08:33)
[2020-12-16] MEDS: LISINOPRIL 2.5 MG TABLET PO SCH (08:33)
[2020-12-16] MEDS: BUDESONIDE 160 MCG PO SCH ×2 (08:33→20:31)
[2020-12-16] MEDS: FORMOTEROL 4.5 MCG PO SCH ×2 (08:33→20:31)
[2020-12-16] MEDS: METOPROLOL SUCCINATE 25 MG TAB.XL.24H PO SCH (11:02)
--- NOTE | 2020-12-16 11:11 | Internal Med Progress Note ---
SUBJECTIVE Subjective Patient information: Note initiated : 12/16/20 at 11:05 am Service Date, if different from initiated Date: [] Patient: Honorio Byrd a 89 y/o M admitted on 12/11/20 for altered mental status x 3 days. Chief Complaint: Follow-up CHF Interval history: Mr. Byrd is a 89 year old M residential resident ([facility]), h/o congestive heart failure, essential hypertension, chronic kidney disease stage IV, atrial fibrillation, type 2 diabetes mellitus, presenting with 4-day history of general body weakness, altered mental status, increasing shortness of breath, extremity edema, and pain swelling and erythema of the right elbow for 4 to 5 months. History severely limited by patient's clinical situations as well as lack of residential staff available. Vital signs are within normal limits. Labs significant for lack of leukocytosis with WBC 9.6. Serum BNP 18,000. Urine analysis suggestive of urinary tract infections. Chest x-ray suggestive of the presence of pulmonary edema. Right elbow x-ray showing cellulitis surrounding the elbow and upper forearm. No evidence of osteomyelitis or joint effusions. Radiologist assist aspirations of right elbow with proximately 2 cc of joint fluid aspirate. Patient currently denies any right elbow pain. 12/12: Afebrile overnight. Now tolerating room air. Good urine output. Blood urine and aspirate culture no growth to date. Aspirate cell WBC [id number], could be a case of septic joint. Subjective not obtained due to clinical situations. 12/13: Afebrile. Been on 2L/min oxygen. Wound culture growing kirk[place] sensitive MSSA. Blood culture no growth to date. Denies fever or chills. Denies SOB. Denies cough or wheezing. Denies right elbow pain. 12/14: Afebrile. Now tolerating room air. Wound culture growing kirk[place] sensitive MSSA. Blood culture no growth to date. Denies fever or chills. Denies SOB. Denies cough or wheezing. Denies right elbow pain. 12/15: Feels fairly well today. Did work with physical therapy. Unclear if he is approaching his baseline. Still with lower extremity edema. Spoke with Dr. Tang who aspirated the elbow, there was purulent material from both superficial and within the joint. The patient notes his elbow is feeling improved. 12/16: Just getting back to bed from chair when I see him. Quite weak needing assistance to mobilize. Continues to have significant lower extremity edema. Patient notes right elbow still hurts when touched. Remains on antibiotics for septic bursitis and presumptive septic joint. Creatinine stable at 1.8 today. Constitutional Vitals: Vital Signs Temp Pulse Resp BP Pulse Ox 97.4 F 63 18 90/64 91 12/16/20 07:34 12/16/20 07:34 12/16/20 07:34 12/16/20 07:34 12/16/20 07:34 Period Temp Pulse Resp BP Sys/Steven Pulse Ox Last 24 Hr 96.9 F-97.4 F 62-73 16-20 88-109/59-77 91-97 Intake and Output 12/15/20 12/16/20 12/16/20 21:59 05:59 13:59 Intake Total 1030 200 360 Output Total 1850 900 Balance -820 -700 360 Weight 251 lb 9 oz Intake & Output: Intake & Output 12/15/20 12/16/20 12/16/20 21:59 05:59 13:59 Intake Total 1030 200 360 Output Total 1850 900 Balance -820 -700 360 Weight 251 lb 9 oz Intake: Oral 1030 200 360 Output: Urine Catheter Amount 1850 900 Other: Meal Dinner Breakfast Percent of Meal Consumed 75% 100% Feeding Ability Assist with Tray Set Up Urine Appearance Clear Sediment Uretheral (Cutler) Clear Urine Color Straw Tea Colored Uretheral (Cutler) Straw GENERAL: Sitting in chair no acute distress RESPIRATORY: Bronchial sounding breath sounds in left lung field, breath sounds not as prominent on right, decreased at bases without rales CARDIOVASCULAR: Regular rate and rhythm with murmur ABDOMEN: Nondistended, nontender EXTREMITIES: Bilateral lower extremities with 2+ to 3+ edema; right elbow with pitting edema. Mild tenderness over the posterior joint with superficial erythema, mildly improved NEURO: Alert, oriented to person, place, situation, significant generalized weakness present OBJ DATA Labs CBC & Chem 7: 12/14/20 05:47 12/16/20 05:53 Labs: Abnormal Lab Results 12/16/20 12/15/20 12/14/20 05:53 05:32 05:47 RBC Hgb Hct MCV MCH RDW Plt Count Lymph % (Auto) Lymph # (Auto) BUN 64 H 62 H 67 H Creatinine 1.8 H 1.8 H 2.3 H Uric Acid 12.7 H Total Bilirubin 1.3 H 1.3 H Direct Bilirubin 0.7 H Alkaline Phosphatase 127 H Lactate Dehydrogenase 241 H Albumin 2.9 L 3.1 L Albumin/Globulin Ratio 0.9 L 12/14/20 05:47 RBC 4.52 L Hgb 11.1 L Hct 34.6 L MCV 76.5 L MCH 24.6 L RDW 20.6 H Plt Count 137 L Lymph % (Auto) 10.0 L Lymph # (Auto) 0.64 L BUN Creatinine Uric Acid Total Bilirubin Direct Bilirubin Alkaline Phosphatase Lactate Dehydrogenase Albumin Albumin/Globulin Ratio Meds: Medications Acetaminophen (Acetaminophen 325 Mg Tablet) 650 mg PO Q6HP PRN; Protocol PRN Reason: Per Pain Protocol/Fever > 101 Last Admin: 12/12/20 21:05 Dose: 650 mg Documented by: Albuterol/Ipratropium (Ipratropium/Albuterol 3 Ml Ampul.Neb) 3 ml NEB Q4HRT PRN PRN Reason: Wheezing Apixaban (Apixaban 5 Mg Tablet) 2.5 mg PO BID [facility] Last Admin: 12/16/20 08:22 Dose: 2.5 mg Documented by: Ascorbic Acid (Ascorbic Acid 500 Mg Tablet) 500 mg PO DAILY [facility] Last Admin: 12/16/20 08:22 Dose: 500 mg Documented by: Bisacodyl (Bisacodyl 10 Mg Supp.Rect) 10 mg [place] DAILYP PRN PRN Reason: Constipation Ceftriaxone Sodium (Ceftriaxone 1 Gm Vial) 1 gm IV Q24H [facility] Last Admin: 12/16/20 08:22 Dose: 1 gm Documented by: Cyanocobalamin (Cyanocobalamin (Vitamin B-12) 500 Mcg Tablet) 1,000 mcg PO DAILY [facility] Last Admin: 12/16/20 08:22 Dose: 1,000 mcg Documented by: Dextrose (Dextrose 50% 50 Ml Vial) 0 ml IV UD PRN PRN Reason: Hypoglycemia Diagnostic Test (Pha) (Accu-Chek 1 Each Strip) 1 each FS ACHS [facility] Last Admin: 12/16/20 07:36 Dose: 1 each Documented by: Docusate Sodium (Docusate Sodium 100 Mg Capsule) 100 mg PO BID [facility] Last Admin: 12/16/20 08:22 Dose: 100 mg Documented by: Furosemide (Furosemide 40 Mg Tablet) 40 mg PO BIDD [facility] Last Admin: 12/16/20 08:22 Dose: 40 mg Documented by: Glucose (Dextrose 31 Gm Oral.Susp) 15 gm PO PRN PRN PRN Reason: Hypoglycemia Insulin Human Lispro (Insulin Lispro 1 Unit/0.01 Ml Unit) 0 unit SQ ACHS [facility]; Protocol Last Admin: 12/16/20 07:38 Dose: Not Given Documented by: Lisinopril (Lisinopril 2.5 Mg Tablet) 2.5 mg PO DAILY [facility] Last Admin: 12/16/20 08:33 Dose: Not Given Documented by: Metoprolol Succinate (Metoprolol Succinate 25 Mg Tab.Xl.24h) 25 mg PO DAILY [facility] Last Admin: 12/16/20 11:02 Dose: Not Given Documented by: Morphine Sulfate (Morphine 4 Mg/Ml Vial) 4 mg IV Q4HP PRN; Protocol PRN Reason: Per Pain Protocol Ondansetron HCl (Ondansetron 4 Mg/2 Ml Vial) 4 mg IV Q6HP PRN PRN Reason: Nausea And Vomiting Oxycodone HCl (Oxycodone Hcl 5 Mg Tablet) 5 mg PO Q6HP PRN; Protocol PRN Reason: Pain Sildenafil 20 Mg (Tablet) 1 dose PO TID [facility] Last Admin: 12/16/20 08:33 Dose: Not Given Documented by: Iron Ag,[id number] -Zn-Sa-Sto [Niferex (Sumalate- Quatrefolic)] Tablet 1 dose PO DAILY [facility] Last Admin: 12/16/20 08:33 Dose: Not Given Documented by: Budesonide 160 Mcg- Formoterol 4.5 Mcg ( Symbicort) Aerosol Inhaler 1 dose PO BID [facility] Last Admin: 12/16/20 08:33 Dose: Not Given Documented by: Senna (Sennosides 1 Tablet) 2 tab PO HS [facility] Last Admin: 12/15/20 21:09 Dose: 2 tab Documented by: Sodium Chloride (0.9 % Sodium Chloride 10 Ml Syringe) 10 ml IV Q8 [facility] Last Admin: 12/16/20 06:43 Dose: 10 ml Documented by: Vitamin D (Vitamin D3 1,000 Unit Tablet) 2,000 unit PO DAILY [facility] Last Admin: 12/16/20 08:22 Dose: 2,000 unit Documented by: Zolpidem Tartrate (Zolpidem 5 Mg Tablet) 5 mg PO HSP PRN PRN Reason: Insomnia A/P Narrative A/P Narrative: Assessment: Acute on chronic heart failure with reduced ejection fraction -Echocardiogram with LVEF 40-45%, decreased from 50-55% previously; moderate to severe aortic stenosis and severe pulmonary hypertension -On beta-lorenza and low-dose MAYCOL inhibitor -Diuresed well with IV furosemide -Trialing stability with oral furosemide -Still with significant volume overload on 12/16, would likely benefit from several more days of diuresis Right elbow cellulitis/bursitis and intra-articular infection -Purulent material aspirated from the bursal area as well as intra-articular -Cultures growing MSSA -On ceftriaxone -Likely needs 4 weeks of therapy -Consider changing to oral at discharge (no data to suggest IV superior to p.o.) -Blood cultures no growth to date Urinary tract infection-ruled out -Urine culture no growth to date Permanent atrial fibrillation -On metoprolol for rate control -[id number] score of 5, Eliquis 2.5mg PO BID renally adjusted dosage Chronic kidney disease stage IV with associated anemia -Currently normotensive -Continue beta-lorenza from home regiment -Added lisinopril as part of the management for CHF Type 2 diabetes mellitus -Low-dose correctional scale insulin Aspart AC HS -Accu chek AC HS -Diabetic diet Colon cancer -Noted to have near obstructing cecal lesion in 2019 -Seen in [place], considered too high risk and referred to hospice -No current symptoms of obstruction Plan: * Continue diuresis * Monitor intake and output * Continue ceftriaxone * Will need prolonged antibiotics, though given improvement may be able to treat orally (no data showing IV superior to oral) * Continue to follow creatinine * Continue with current treatment of diabetes * Continue PT and OT * Likely benefit several more days of diuresis in a monitored setting Time Spent With Patient Time: Total time spent is greater than 50% in coordination of care (as documented) at patient's floor/unit and/or counseling patient: Total time spent with greater than 50% in coordination of care (as documented) at patient's floor/unit and/or counseling patient:: 25 - 35 minutes QUALITY Stroke Symptom Onset Unknown: No
[2020-12-16] MEDS: SENNOSIDES 1 TABLET PO SCH (20:29)
[2020-12-17] MEDS: FUROSEMIDE 40 MG TABLET PO SCH (07:40)
[2020-12-17 07:41] LABS: Albumin 2.7 gm/dL (3.2-5.2); Blood Urea Nitrogen 59 mg/dL (8-23); Calcium 8.9 mg/dL (8.6-10.4); Carbon Dioxide 26 mmol/L (22-30); Chloride 101 mmol/L (96-108); Glomerular Filtration Rate 33; Glucose 90 mg/dL (70-105); Phosphorous 3.1 mg/dL (2.5-4.5)
[2020-12-17] MEDS: INSULIN LISPRO 1 UNIT/0.01 ML UNIT SQ SCH ×4 (07:44→20:40)
[2020-12-17] MEDS: 0.9 % SODIUM CHLORIDE 10 ML SYRINGE IV SCH ×3 (07:44→20:27)
[2020-12-17] MEDS: BUDESONIDE 160 MCG PO SCH ×2 (08:08→20:33)
[2020-12-17] MEDS: METOPROLOL SUCCINATE 25 MG TAB.XL.24H PO SCH (08:08)
[2020-12-17] MEDS: FORMOTEROL 4.5 MCG PO SCH ×2 (08:08→20:33)
[2020-12-17] MEDS: [UNRECOGNIZED DRUG - OTHER] PO SCH (08:08)
[2020-12-17] MEDS: LISINOPRIL 2.5 MG TABLET PO SCH (08:09)
[2020-12-17] MEDS: CYANOCOBALAMIN (VITAMIN B-12) 500 MCG TABLET PO SCH (08:23)
[2020-12-17] MEDS: VITAMIN D3 25 MCG TABLET PO SCH (08:23)
[2020-12-17] MEDS: ASCORBIC ACID 500 MG TABLET PO SCH (08:23)
[2020-12-17] MEDS: DOCUSATE SODIUM 100 MG CAPSULE PO SCH ×2 (08:23→20:24)
[2020-12-17] MEDS: APIXABAN 5 MG TABLET PO SCH ×2 (08:23→20:25)
[2020-12-17] MEDS: cefTRIAXone 1 GM VIAL IV SCH (08:25)
--- NOTE | 2020-12-17 10:50 | Internal Med Progress Note ---
SUBJECTIVE Subjective Patient information: Note initiated : 12/17/20 at 10:44 am Service Date, if different from initiated Date: [] Patient: Honorio Byrd 89 y/o M admitted on 12/11/20 for altered mental status x 3 days. Chief Complaint: [right elbow cellulitis] Principal diagnosis: septic right elbow Interval history: pt accepted by [facility] to return when ready. Pt with septic elbow and still lots of swelling dependent extremities. Says elbow feels better. Noted by therapy to be doing much more activity. Pertinent ROS: MS some elbow pain worse with activity CV peristent leg swelling has been severe since July and August Was deteriorating at home so admitted to SNF just before admission known heart murmur. no known CT. accompanied by daughter and G daughter Radha Constitutional Vitals: Vital Signs Temp Pulse Resp BP Pulse Ox 97.0 F 67 20 98/64 96 12/17/20 07:50 12/17/20 07:50 12/17/20 07:50 12/17/20 07:50 12/17/20 07:50 Period Temp Pulse Resp BP Sys/Steven Pulse Ox Last 24 Hr 96.9 F-97.8 F 60-86 14-20 84-104/52-68 90-98 Intake and Output 12/16/20 12/17/20 12/17/20 21:59 05:59 13:59 Intake Total 800 550 760 Output Total 1100 1350 Balance -300 -800 760 Weight 115.757 kg Intake & Output: Intake & Output 12/16/20 12/17/20 12/17/20 21:59 05:59 13:59 Intake Total 800 550 760 Output Total 1100 1350 Balance -300 -800 760 Weight 115.757 kg Intake: Oral 800 550 760 Output: Urine Catheter Amount 1100 1350 Other: Meal Lunch Breakfast Percent of Meal Consumed 100% 100% Feeding Ability Assist with Tray Set Up Urine Appearance Clear Uretheral (Cutler) Clear Clear Urine Color Dark Yellow Uretheral (Cutler) Straw Straw Stool Size Small Stool Color Brown Stool Consistency Soft Additional findings Additional findings: GEN WDWN tall elderly man in bed. generalized edema right forearm is severe 3-4+ and also in bilat legs 3-4+\ CV RRR 5/6 kar BHA RUSB radiates to chest Lungs CTA abd soft Calves 4+ edema mentation alert oriented OBJ DATA Labs CBC & Chem 7: 12/14/20 05:47 12/17/20 06:05 Labs: Abnormal Lab Results 12/17/20 12/16/20 12/15/20 06:05 05:53 05:32 BUN 59 H 64 H 62 H Creatinine 1.8 H 1.8 H 1.8 H Uric Acid 12.7 H Total Bilirubin 1.3 H Direct Bilirubin 0.7 H Lactate Dehydrogenase 241 H Albumin 2.7 L 2.9 L Meds: Medications Acetaminophen (Acetaminophen 325 Mg Tablet) 650 mg PO Q6HP PRN; Protocol PRN Reason: Per Pain Protocol/Fever > 101 Last Admin: 12/12/20 21:05 Dose: 650 mg Documented by: Albuterol/Ipratropium (Ipratropium/Albuterol 3 Ml Ampul.Neb) 3 ml NEB Q4HRT PRN PRN Reason: Wheezing Apixaban (Apixaban 5 Mg Tablet) 2.5 mg PO BID [facility] Last Admin: 12/17/20 08:23 Dose: 2.5 mg Documented by: Ascorbic Acid (Ascorbic Acid 500 Mg Tablet) 500 mg PO DAILY [facility] Last Admin: 12/17/20 08:23 Dose: 500 mg Documented by: Bisacodyl (Bisacodyl 10 Mg Supp.Rect) 10 mg [place] DAILYP PRN PRN Reason: Constipation Ceftriaxone Sodium (Ceftriaxone 1 Gm Vial) 1 gm IV Q24H [facility] Last Admin: 12/17/20 08:25 Dose: 1 gm Documented by: Cyanocobalamin (Cyanocobalamin (Vitamin B-12) 500 Mcg Tablet) 1,000 mcg PO DAILY [facility] Last Admin: 12/17/20 08:23 Dose: 1,000 mcg Documented by: Dextrose (Dextrose 50% 50 Ml Vial) 0 ml IV UD PRN PRN Reason: Hypoglycemia Diagnostic Test (Pha) (Accu-Chek 1 Each Strip) 1 each FS ACHS [facility] Last Admin: 12/17/20 07:35 Dose: 1 each Documented by: Docusate Sodium (Docusate Sodium 100 Mg Capsule) 100 mg PO BID [facility] Last Admin: 12/17/20 08:23 Dose: 100 mg Documented by: Furosemide (Furosemide 40 Mg Tablet) 40 mg PO BIDD [facility] Last Admin: 12/17/20 07:40 Dose: 40 mg Documented by: Glucose (Dextrose 31 Gm Oral.Susp) 15 gm PO PRN PRN PRN Reason: Hypoglycemia Insulin Human Lispro (Insulin Lispro 1 Unit/0.01 Ml Unit) 0 unit SQ ACHS [facility]; Protocol Last Admin: 12/17/20 07:44 Dose: Not Given Documented by: Lisinopril (Lisinopril 2.5 Mg Tablet) 2.5 mg PO DAILY [facility] Last Admin: 12/17/20 08:09 Dose: Not Given Documented by: Metoprolol Succinate (Metoprolol Succinate 25 Mg Tab.Xl.24h) 25 mg PO DAILY [facility] Last Admin: 12/17/20 08:08 Dose: Not Given Documented by: Morphine Sulfate (Morphine 4 Mg/Ml Vial) 4 mg IV Q4HP PRN; Protocol PRN Reason: Per Pain Protocol Ondansetron HCl (Ondansetron 4 Mg/2 Ml Vial) 4 mg IV Q6HP PRN PRN Reason: Nausea And Vomiting Oxycodone HCl (Oxycodone Hcl 5 Mg Tablet) 5 mg PO Q6HP PRN; Protocol PRN Reason: Pain Last Admin: 12/17/20 07:40 Dose: 5 mg Documented by: Sildenafil 20 Mg (Tablet) 1 dose PO TID [facility] Last Admin: 12/17/20 08:08 Dose: Not Given Documented by: Iron Ag,[id number] -Zn-Sa-Sto [Niferex (Sumalate- Quatrefolic)] Tablet 1 dose PO DAILY [facility] Last Admin: 12/17/20 08:08 Dose: Not Given Documented by: Budesonide 160 Mcg- Formoterol 4.5 Mcg ( Symbicort) Aerosol Inhaler 1 dose PO BID [facility] Last Admin: 12/17/20 08:08 Dose: Not Given Documented by: Senna (Sennosides 1 Tablet) 2 tab PO HS [facility] Last Admin: 12/16/20 20:29 Dose: 2 tab Documented by: Sodium Chloride (0.9 % Sodium Chloride 10 Ml Syringe) 10 ml IV Q8 [facility] Last Admin: 12/17/20 07:44 Dose: 10 ml Documented by: Vitamin D (Vitamin D3 1,000 Unit Tablet) 2,000 unit PO DAILY [facility] Last Admin: 12/17/20 08:23 Dose: 2,000 unit Documented by: Zolpidem Tartrate (Zolpidem 5 Mg Tablet) 5 mg PO HSP PRN PRN Reason: Insomnia A/P Assessment and plan (1) Septic arthritis of elbow, right: Status: Acute Comment: MSSA and sensitive to cefazolin will make abx change now. (2) CHF exacerbation: Status: Acute Comment: severe volume overload and edema with . start diuresis of goal 20 lbs water before discharge (3) Atrial fibrillation: Status: Chronic Comment: severe edema and also cellulitis. will start low dose anticoagulation Qualifiers: Atrial fibrillation type: unspecified Qualified Code(s): I48.91 - Unspecified atrial fibrillation (4) Chronic kidney disease, stage III (moderate): Status: Chronic Comment: 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 Time Spent With Patient Time: Total time spent is greater than 50% in coordination of care (as documented) at patient's floor/unit and/or counseling patient: 50 mins QUALITY Stroke Symptom Onset Unknown: No VTE Documentation of Mechanical Device: Intermittent pneumatic compression stockings
[2020-12-17] MEDS ORDERED: ceFAZolin 2 GM in DEXTROSE 5% IN WATER 50 ML IV SCH (11:05)
[2020-12-17] MEDS: ceFAZolin 1 GM VIAL IV SCH ×2 (12:13→20:26)
[2020-12-17] MEDS: METOLAZONE 2.5 MG TABLET PO SCH ×2 (12:15→16:56)
[2020-12-17] MEDS: ALLOPURINOL 300 MG TABLET PO SCH (12:15)
[2020-12-17] MEDS: BUMETANIDE 1 MG/4 ML VIAL IV SCH ×2 (13:06→20:27)
[2020-12-17] MEDS: SENNOSIDES 1 TABLET PO SCH (20:23)
[2020-12-17] MEDS: FLUTICASONE/SALMETEROL 250/50 INHALER #14 INH SCH (20:36)
[2020-12-18] MEDS: BUMETANIDE 1 MG/4 ML VIAL IV SCH ×3 (03:29→21:12)
[2020-12-18 06:49] LABS: Basophils # (Auto) 0.05 K/mcL (0.00-0.30); Basophils % (Auto) 0.9 % (0.0-2.0); Eosinophils # (Auto) 0.18 K/mcL (0.00-0.70); Eosinophils % (Auto) 3.1 % (0.0-7.0); Hematocrit 30.6 % (40.1-51.0); Hemoglobin 9.6 g/dL (13.7-17.5); Lymphocytes # (Auto) 0.58 K/mcL (1.50-4.80); Mean Cell Volume 78.7 fL (80.0-100.0); Mean Corpuscular HGB Conc 31.4 g/dL (31.0-36.0); Monocytes # (Auto) 0.69 K/mcL (0.10-0.90); Monocytes % (Auto) 11.9 % (1.0-12.0); Neutrophils % (Auto) 74.1 % (38.0-78.0); Platelet Count 142 K/mcL (140-440); RBC 3.89 M/mcL (4.63-6.08); Red Cell Distribution Width 20.9 % (11.5-14.5); WBC 5.8 K/mcL (4.5-11.0)
[2020-12-18 07:18] LABS: ALT/SGPT 15 U/L (<40); AST/SGOT 12 U/L (<40); Albumin 2.8 gm/dL (3.2-5.2); Albumin/Globulin Ratio 0.9 (1.0-2.3); Alkaline Phosphatase 100 U/L (39-117); Bilirubin,Total 0.7 mg/dL (0.1-1.0); Blood Urea Nitrogen 56 mg/dL (8-23); Calcium 8.6 mg/dL (8.6-10.4); Carbon Dioxide 28 mmol/L (22-30); Chloride 98 mmol/L (96-108); Glomerular Filtration Rate 38; Glucose 77 mg/dL (70-105)
[2020-12-18] MEDS: 0.9 % SODIUM CHLORIDE 10 ML SYRINGE IV SCH ×3 (07:40→21:41)
[2020-12-18] MEDS: INSULIN LISPRO 1 UNIT/0.01 ML UNIT SQ SCH ×4 (07:41→21:15)
[2020-12-18] MEDS: METOLAZONE 2.5 MG TABLET PO SCH ×2 (07:42→15:27)
[2020-12-18] MEDS: VITAMIN D3 25 MCG TABLET PO SCH (10:47)
[2020-12-18] MEDS: CYANOCOBALAMIN (VITAMIN B-12) 500 MCG TABLET PO SCH (10:47)
[2020-12-18] MEDS: ASCORBIC ACID 500 MG TABLET PO SCH (10:48)
[2020-12-18] MEDS: APIXABAN 5 MG TABLET PO SCH ×2 (10:48→21:14)
[2020-12-18] MEDS: DOCUSATE SODIUM 100 MG CAPSULE PO SCH ×2 (10:48→21:14)
[2020-12-18] MEDS: [UNRECOGNIZED DRUG - OTHER] PO SCH (10:49)
[2020-12-18] MEDS: ALLOPURINOL 300 MG TABLET PO SCH (10:49)
[2020-12-18] MEDS: BUDESONIDE 160 MCG PO SCH ×2 (10:49→21:41)
[2020-12-18] MEDS: FORMOTEROL 4.5 MCG PO SCH ×2 (10:49→21:41)
[2020-12-18] MEDS: ceFAZolin 1 GM VIAL IV SCH ×2 (11:00→21:15)
[2020-12-18] MEDS: FLUTICASONE/SALMETEROL 250/50 INHALER #14 INH SCH ×2 (11:06→21:15)
[2020-12-18] MEDS: METOPROLOL SUCCINATE 25 MG TAB.XL.24H PO SCH (11:11)
--- NOTE | 2020-12-18 14:51 | Internal Med Progress Note ---
SUBJECTIVE Subjective Patient information: Note initiated : 12/18/20 at 2:48 pm Service Date, if different from initiated Date: [] Patient: Honorio Byrd 89 y/o M admitted on 12/11/20 for altered mental status x 3 days. Chief Complaint: [] Principal diagnosis: septic right elbow Interval history: pt diuresed with bumex IV and metolazone. significant decrease right arm swelling. Nela the daughter is present at bedside. Says pts swelling in legs started months ago after he became scared to fall. He had a history of 8cm cecal mass planned for resection by Dr. Hughes but had a cardiac event. Flown to [facility] but cardiac issues again so discharged home to hospice. Subsequently pt disenrolled hospice. Also changed from regular diet to ketosis fat only diet and lost about 80 lbs. diabetes largely went away. no knowN PR but the echo shows significant valvular disease and EF 45% Constitutional Vitals: Vital Signs Temp Pulse Resp BP Pulse Ox 97.6 F 104 H 20 109/74 95 12/18/20 12:00 12/18/20 12:00 12/18/20 12:00 12/18/20 12:00 12/18/20 12:00 Period Temp Pulse Resp BP Sys/Steven Pulse Ox Last 24 Hr 96.6 F-97.6 F 60-104 14-22 86-109/59-74 91-97 Intake and Output 12/18/20 12/18/20 12/18/20 05:59 13:59 21:59 Intake Total 350 600 Output Total 1875 700 Balance -1525 -100 Weight 118.932 kg Patient Weight 12/19/20 05:59 Weight 118.932 kg Intake & Output: Intake & Output 12/18/20 12/18/20 12/18/20 05:59 13:59 21:59 Intake Total 350 600 Output Total 1875 700 Balance -1525 -100 Weight 118.932 kg Intake: Oral 350 600 Output: Urine Catheter Amount 1875 700 Other: Meal Lunch Percent of Meal Consumed 100% Feeding Ability Assist with Tray Set Up Urine Appearance Clear Urine Color Bright Yellow Dark Yellow Urine Odor Strong OBJ DATA Labs CBC & Chem 7: 12/18/20 05:29 12/18/20 05:29 Labs: Abnormal Lab Results 12/18/20 12/18/20 12/17/20 05:29 05:29 06:05 RBC 3.89 L Hgb 9.6 L Hct 30.6 L MCV 78.7 L MCH 24.7 L RDW 20.9 H MPV 11.0 H Lymph % (Auto) 10.0 L Lymph # (Auto) 0.58 L BUN 56 H 59 H Creatinine 1.6 H 1.8 H Total Protein 5.8 L Albumin 2.8 L 2.7 L Albumin/Globulin Ratio 0.9 L 12/16/20 05:53 RBC Hgb Hct MCV MCH RDW MPV Lymph % (Auto) Lymph # (Auto) BUN 64 H Creatinine 1.8 H Total Protein Albumin Albumin/Globulin Ratio Meds: Medications Acetaminophen (Acetaminophen 325 Mg Tablet) 650 mg PO Q6HP PRN; Protocol PRN Reason: Per Pain Protocol/Fever > 101 Last Admin: 12/12/20 21:05 Dose: 650 mg Documented by: Albuterol/Ipratropium (Ipratropium/Albuterol 3 Ml Ampul.Neb) 3 ml NEB Q4HRT PRN PRN Reason: Wheezing Allopurinol (Allopurinol 300 Mg Tablet) 300 mg PO DAILY [facility] Last Admin: 12/18/20 10:49 Dose: 300 mg Documented by: Apixaban (Apixaban 5 Mg Tablet) 2.5 mg PO BID [facility] Last Admin: 12/18/20 10:48 Dose: 2.5 mg Documented by: Ascorbic Acid (Ascorbic Acid 500 Mg Tablet) 500 mg PO DAILY [facility] Last Admin: 12/18/20 10:48 Dose: 500 mg Documented by: Bisacodyl (Bisacodyl 10 Mg Supp.Rect) 10 mg [place] DAILYP PRN PRN Reason: Constipation Bumetanide (Bumetanide 0.25 Mg/Ml Vial) 1 mg IV Q8H [facility] Stop: 12/19/20 04:01 Last Admin: 12/18/20 11:20 Dose: 1 mg Documented by: Cefazolin Sodium (Cefazolin 1 Gm Vial) 2 gm IV Q12H [facility] Last Admin: 12/18/20 11:00 Dose: 2 gm Documented by: Cyanocobalamin (Cyanocobalamin (Vitamin B-12) 500 Mcg Tablet) 1,000 mcg PO DAILY [facility] Last Admin: 12/18/20 10:47 Dose: 1,000 mcg Documented by: Dextrose (Dextrose 50% 50 Ml Vial) 0 ml IV UD PRN PRN Reason: Hypoglycemia Diagnostic Test (Pha) (Accu-Chek 1 Each Strip) 1 each FS [facility] Last Admin: 12/18/20 11:15 Dose: 1 each Documented by: Docusate Sodium (Docusate Sodium 100 Mg Capsule) 100 mg PO BID [facility] Last Admin: 12/18/20 10:48 Dose: 100 mg Documented by: Glucose (Dextrose 31 Gm Oral.Susp) 15 gm PO PRN PRN PRN Reason: Hypoglycemia Insulin Human Lispro (Insulin Lispro 1 Unit/0.01 Ml Unit) 0 unit SQ [facility]; Protocol Last Admin: 12/18/20 11:19 Dose: Not Given Documented by: Metolazone (Metolazone 2.5 Mg Tablet) 2.5 mg PO BID@0730,1530 [facility] Last Admin: 12/18/20 07:42 Dose: 2.5 mg Documented by: Oxycodone HCl (Oxycodone Hcl 5 Mg Tablet) 5 mg PO Q6HP PRN; Protocol PRN Reason: Pain Last Admin: 12/17/20 07:40 Dose: 5 mg Documented by: Sildenafil 20 Mg (Tablet) 1 dose PO TID [facility] Last Admin: 12/18/20 10:50 Dose: Not Given Documented by: Iron Ag,[id number] -Zn-Sa-Sto [Niferex (Sumalate- Quatrefolic)] Tablet 1 dose PO DAILY [facility] Last Admin: 12/18/20 10:49 Dose: Not Given Documented by: Budesonide 160 Mcg- Formoterol 4.5 Mcg ( Symbicort) Aerosol Inhaler 1 dose PO BID [facility] Last Admin: 12/18/20 10:49 Dose: Not Given Documented by: Polyethylene Glycol (Polyethylene Glycol 3350 17 Gm Packet) 17 gm PO DAILY [facility] Fluticasone/Salmeterol (Fluticasone/Salmeterol 250/50 Inhaler #14) 1 puff INH BID [facility] Last Admin: 12/18/20 11:06 Dose: 1 puff Documented by: Senna (Sennosides 1 Tablet) 2 tab PO HS [facility] Last Admin: 12/17/20 20:23 Dose: 2 tab Documented by: Sodium Chloride (0.9 % Sodium Chloride 10 Ml Syringe) 10 ml IV Q8 [facility] Last Admin: 12/18/20 07:40 Dose: 10 ml Documented by: Vitamin D (Vitamin D3 1,000 Unit Tablet) 2,000 unit PO DAILY [facility] Last Admin: 12/18/20 10:47 Dose: 2,000 unit Documented by: Zolpidem Tartrate (Zolpidem 5 Mg Tablet) 5 mg PO HSP PRN PRN Reason: Insomnia Echo 12/12 severe , severe Tricuspid regurg. severe pulm hypertension to 60. the MR is moderate. EF 45 % down from 55 5months earlier A/P Assessment and plan (1) Septic olecranon bursitis of right elbow: Status: Acute Comment: by exam today is the bursa no the elbow joint itself. Will ask Dr. Carter to evaluate (2) UTI (urinary tract infection): Status: Acute Comment: improved now on cefazolin for elbow (3) Atrial fibrillation: Status: Chronic Comment: severe edema and also cellulitis. will start low dose anticoagulation stop metoprolol as rate controlled spontaneously Qualifiers: Atrial fibrillation type: unspecified Qualified Code(s): I48.91 - Unspecified atrial fibrillation (4) Chronic kidney disease, stage III (moderate): Status: Chronic Comment: 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 avoid nsaid, no metformin (5) Diabetes mellitus, type II: Status: Chronic Comment: stable on insulin improved with wt loss. blood sugars controlled on ketosis diet prior to admission and lots of wt loss. (6) Mass of cecum: Status: Acute Comment: proceed with oral contrast CT. no iv contrast due to CKD Time Spent With Patient Time: Total time spent is greater than 50% in coordination of care (as documented) at patient's floor/unit and/or counseling patient:40 miins family conference held with pt, Nela daughter and Betty daughter on speakerphone. QUALITY Stroke Symptom Onset Unknown: No
--- NOTE | 2020-12-18 18:01 | Cat Scan Report ---
INDICATION: fluid overload COMPARISON: Previous chest x-ray dated 12/11/2020 TECHNIQUE: Axial noncontrast enhanced images through the chest, abdomen, pelvis. Sagittally and coronally reformatted images. MIP reformatted images. Oral contrast material was given FINDINGS: Lungs:There is bilateral lower lobe collapse due to large pleural effusions. Aerated portions of the lungs are negative. No parenchymal consolidation or mass. Mediastinum, vascular:No pathologic mediastinal or hilar lymphadenopathy. Main pulmonary artery is enlarged and measures 4.0 cm in cross-sectional diameter. This is consistent with pulmonary arterial hypertension. Thoracic aorta is negative. Heart:There is four-chamber cardiomegaly. There is severe calcified coronary artery disease. There is a stent in the left anterior descending coronary artery. There is no significant pericardial effusion Pleura:There are large bilateral pleural effusions. These appear to be simple and free flowing. Right pleural effusion is larger than the left consistent with congestive heart failure Axilla, supraclavicular regions, chest wall:No pathologic axillary or supraclavicular adenopathy. There is extensive subcutaneous edema. Appearance is consistent with anasarca. Musculoskeletal:No thoracic compression fractures. Sternum and ribs are negative. No fracture. No lytic lesion. Abdomen/Pelvis: Liver:No detectable hepatic mass. Liver contour is smooth. Gallbladder, bilary:Gallbladder is collapsed. No calcified stones. No dilated bile ducts Spleen:No splenomegaly. Pancreas:No pancreatic mass. No pancreatic duct dilatation. No peripancreatic abnormality Adrenal glands:Negative Kidneys, ureters, bladder:Kidneys appear atrophic. There is no hydronephrosis. No obstructing or nonobstructing calculi. No detectable mass. There is no hydroureter. There is a Cutler catheter within the urinary bladder. Gastrointestinal:Large amount of fecal material within the rectum consistent with fecal impaction. Descending colon and transverse colon are negative. There is an ileal cecal intussusception. There is dilated proximal small bowel. This contains contrast material. Stomach contains contrast material. There is no contrast material within the colon. Small bowel proximal to the intussusception is dilated to 3.5 cm in cross-sectional diameter. There is significant wall thickening within the distal ileum, the intussuscipiens. There is no intramural gas. No pneumoperitoneum. There is no biliary or portal venous gas. Typically intussusception in an adult patient is secondary to a mass. Appendix: The appendix is nonvisualized Vascular:Abdominal aortic aneurysm with a stent graft. This graft measures 3.9 cm in maximum diameter. There are bilateral iliac stents. Left common iliac artery measures 2.7 cm in maximum cross-sectional diameter. Lymphatic:No retroperitoneal or pathologic mesenteric adenopathy Mesentery, peritoneum:There is a small amount of ascitic fluid. No intra-abdominal abscess. There is no pneumoperitoneum. Reproductive:Prostate is not significantly enlarged. There is a Cutler catheter in place. Musculoskeletal:No compression fractures. No lytic lesions. Multilevel degenerative disc disease. Sacrum, pelvis, hips are negative There is extensive subcutaneous edema consistent with severe anasarca. There is a low density abnormality in the subcutaneous fat over the left lower quadrant. There are calcifications or foreign body within this. This may be an abscess or seroma. This measures approximately 12 x 4 x 11 cm. There are no gas bubbles within this. No anterior abdominal wall or inguinal hernia. IMPRESSION: 1. Large bilateral pleural effusions, right larger than left. Findings are consistent with congestive heart failure 2. Four-chamber cardiomegaly. Atherosclerotic coronary artery disease 3. Bilateral lower lobe collapse secondary to large pleural effusions 4. Extensive subcutaneous edema consistent with anasarca 5. Enlarged main pulmonary artery consistent with pulmonary arterial hypertension 6. Ileocecal intussusception with small bowel obstruction 7. Distal sigmoid and rectal fecal impaction 8. Mild ascites 9. Extensive subcutaneous edema consistent with anasarca 10. Focal subcutaneous fluid collection in the left lower quadrant may represent abscess or trauma. There are calcifications or foreign body within this 11. Multilevel degenerative disc disease 12. Abdominal aortic aneurysm and common iliac artery aneurysms. There is an aortobiiliac stent The exam was performed using radiation dose optimization techniques including, but not limited to, automated exposure control, adjustment of the mA and/or kV according to patient size and use of iterative reconstruction technique. IMPRESSION: The exam was performed using radiation dose optimization techniques including, but not limited to, automated exposure control, adjustment of the mA and/or kV according to patient size and use of iterative reconstruction technique. Interpreted and Authenticated by: Leonard Elder 12/18/20
[2020-12-18] MEDS: SENNOSIDES 1 TABLET PO SCH (21:14)
[2020-12-19] MEDS: BUMETANIDE 1 MG/4 ML VIAL IV SCH ×2 (04:41→21:08)
[2020-12-19] MEDS: 0.9 % SODIUM CHLORIDE 10 ML SYRINGE IV SCH ×3 (04:42→21:10)
[2020-12-19 06:52] LABS: Crystals,Body Fluid None Seen (None Seen)
[2020-12-19] MEDS: METOLAZONE 2.5 MG TABLET PO SCH ×2 (07:42→14:34)
[2020-12-19] MEDS: INSULIN LISPRO 1 UNIT/0.01 ML UNIT SQ SCH ×4 (07:42→21:19)
[2020-12-19] MEDS: BISACODYL 10 MG SUPP.RECT PR SCH ×2 (07:51→08:54)
[2020-12-19] MEDS: DOCUSATE SODIUM 100 MG CAPSULE PO SCH ×2 (08:54→21:09)
[2020-12-19] MEDS: ASCORBIC ACID 500 MG TABLET PO SCH (08:54)
[2020-12-19] MEDS: APIXABAN 5 MG TABLET PO SCH ×2 (08:54→21:09)
[2020-12-19] MEDS: ALLOPURINOL 300 MG TABLET PO SCH (08:54)
[2020-12-19] MEDS: CYANOCOBALAMIN (VITAMIN B-12) 500 MCG TABLET PO SCH (08:54)
[2020-12-19] MEDS: POLYETHYLENE GLYCOL 3350 17 GM PACKET PO SCH (08:54)
[2020-12-19] MEDS: FLUTICASONE/SALMETEROL 250/50 INHALER #14 INH SCH ×2 (08:55→21:09)
[2020-12-19 08:56] LABS: Blood Urea Nitrogen 54 mg/dL (8-23); Calcium 8.9 mg/dL (8.6-10.4); Carbon Dioxide 28 mmol/L (22-30); Chloride 96 mmol/L (96-108); Glomerular Filtration Rate 38; Glucose 106 mg/dL (70-105); Uric Acid 10.8 mg/dL (2.5-8.0)
[2020-12-19] MEDS: ceFAZolin 1 GM VIAL IV SCH ×2 (09:00→21:15)
[2020-12-19] MEDS: FORMOTEROL 4.5 MCG PO SCH ×2 (09:02→21:09)
[2020-12-19] MEDS: BUDESONIDE 160 MCG PO SCH ×2 (09:02→21:09)
[2020-12-19] MEDS: [UNRECOGNIZED DRUG - OTHER] PO SCH (09:02)
[2020-12-19] MEDS: VITAMIN D3 25 MCG TABLET PO SCH (09:05)
--- NOTE | 2020-12-19 16:02 | Internal Med Progress Note ---
SUBJECTIVE Subjective Patient information: Note initiated : 12/19/20 at 3:55 pm Service Date, if different from initiated Date: [] Patient: Honorio Byrd 89 y/o M admitted on 12/11/20 for altered mental status x 3 days. Principal diagnosis: septic right elbow Interval history: pt with Echo showing multivalvular disease and insufficiency along with 4 chamber cardiac enlargement. Pt is diuresing well The CT show pleural effusion, ascites, anasarca. 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 has some constipation. dulcolax taken earlier Right elbow pain not much different. not worse Pertinent ROS: no fever, no nausea Additional PMFSH (Level 3 Only): cecal mass Constitutional Vitals: Vital Signs Temp Pulse Resp BP Pulse Ox 97.4 F 69 20 99/66 91 12/19/20 12:00 12/19/20 12:00 12/19/20 12:00 12/19/20 12:00 12/19/20 12:00 Period Temp Pulse Resp BP Sys/Steven Pulse Ox Last 24 Hr 97.1 F-97.7 F 69-97 16-22 93-104/59-69 91-95 Intake and Output 12/19/20 12/19/20 12/19/20 05:59 13:59 21:59 Intake Total 1134 300 Output Total 1925 1400 Balance -791 -1100 Intake & Output: Intake & Output 12/19/20 12/19/20 12/19/20 05:59 13:59 21:59 Intake Total 1134 300 Output Total 1925 1400 Balance -791 -1100 Intake: IV 984 Sodium Chloride 0.9% 2,000 ml @ 984 Wide Open IV .Q0M ONE Rx#: [id number] Oral 150 300 Output: Urine Catheter Amount 1925 1400 Other: Meal Breakfast Percent of Meal Consumed 100% Feeding Ability Assist with Tray Set Up Urine Appearance Sediment Uretheral (Cutler) Clear Urine Color Light Nadege Light Nadege Blood Tinged Uretheral (Cutler) Dark Yellow Urine Odor Strong Additional findings Additional findings: GEN WDWN WM in NAD CV RRR with 4-5/6 axilla and LUSB murmurs Lungs diminished with crackles in the bases Calves 4+ edema forearms 2+ edema 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 erythema is less. flex and extend elbow not painful OBJ DATA Labs CBC & Chem 7: 12/18/20 05:29 12/19/20 05:26 Labs: Abnormal Lab Results 12/19/20 12/18/20 12/18/20 05:26 05:29 05:29 RBC 3.89 L Hgb 9.6 L Hct 30.6 L MCV 78.7 L MCH 24.7 L RDW 20.9 H MPV 11.0 H Lymph % (Auto) 10.0 L Lymph # (Auto) 0.58 L BUN 54 H 56 H Creatinine 1.6 H 1.6 H Glucose 106 H Uric Acid 10.8 H C-Reactive Protein 2.80 H Total Protein 5.8 L Albumin 2.8 L Albumin/Globulin Ratio 0.9 L 12/17/20 06:05 RBC Hgb Hct MCV MCH RDW MPV Lymph % (Auto) Lymph # (Auto) BUN 59 H Creatinine 1.8 H Glucose Uric Acid C-Reactive Protein Total Protein Albumin 2.7 L Albumin/Globulin Ratio Meds: Medications Acetaminophen (Acetaminophen 325 Mg Tablet) 650 mg PO Q6HP PRN; Protocol PRN Reason: Per Pain Protocol/Fever > 101 Last Admin: 12/12/20 21:05 Dose: 650 mg Documented by: Albuterol/Ipratropium (Ipratropium/Albuterol 3 Ml Ampul.Neb) 3 ml NEB Q4HRT PRN PRN Reason: Wheezing Allopurinol (Allopurinol 300 Mg Tablet) 300 mg PO DAILY [facility] Last Admin: 12/19/20 08:54 Dose: 300 mg Documented by: Apixaban (Apixaban 5 Mg Tablet) 2.5 mg PO BID [facility] Last Admin: 12/19/20 08:54 Dose: 2.5 mg Documented by: Ascorbic Acid (Ascorbic Acid 500 Mg Tablet) 500 mg PO DAILY [facility] Last Admin: 12/19/20 08:54 Dose: 500 mg Documented by: Bisacodyl (Bisacodyl 10 Mg Supp.Rect) 10 mg MD DAILYP PRN PRN Reason: Constipation Bisacodyl (Bisacodyl 10 Mg Supp.Rect) 10 mg MD DAILY [facility] Last Admin: 12/19/20 08:54 Dose: 10 mg Documented by: Cefazolin Sodium (Cefazolin 1 Gm Vial) 2 gm IV Q12H [facility] Last Admin: 12/19/20 09:00 Dose: 2 gm Documented by: Cyanocobalamin (Cyanocobalamin (Vitamin B-12) 500 Mcg Tablet) 1,000 mcg PO DAILY [facility] Last Admin: 12/19/20 08:54 Dose: 1,000 mcg Documented by: Dextrose (Dextrose 50% 50 Ml Vial) 0 ml IV UD PRN PRN Reason: Hypoglycemia Diagnostic Test (Pha) (Accu-Chek 1 Each Strip) 1 each FS [facility] Last Admin: 12/19/20 11:24 Dose: 1 each Documented by: Docusate Sodium (Docusate Sodium 100 Mg Capsule) 100 mg PO BID [facility] Last Admin: 12/19/20 08:54 Dose: 100 mg Documented by: Glucose (Dextrose 31 Gm Oral.Susp) 15 gm PO PRN PRN PRN Reason: Hypoglycemia Insulin Human Lispro (Insulin Lispro 1 Unit/0.01 Ml Unit) 0 unit SQ [facility]; Protocol Last Admin: 12/19/20 11:24 Dose: Not Given Documented by: Metolazone (Metolazone 2.5 Mg Tablet) 2.5 mg PO BID@0730,1530 [facility] Last Admin: 12/19/20 14:34 Dose: 2.5 mg Documented by: Oxycodone HCl (Oxycodone Hcl 5 Mg Tablet) 5 mg PO Q6HP PRN; Protocol PRN Reason: Pain Last Admin: 12/17/20 07:40 Dose: 5 mg Documented by: Sildenafil 20 Mg (Tablet) 1 dose PO TID [facility] Last Admin: 12/19/20 14:34 Dose: Not Given Documented by: Iron Ag,[id number] -Zn-Sa-Sto [Niferex (Sumalate- Quatrefolic)] Tablet 1 dose PO DAILY [facility] Last Admin: 12/19/20 09:02 Dose: Not Given Documented by: Budesonide 160 Mcg- Formoterol 4.5 Mcg ( Symbicort) Aerosol Inhaler 1 dose PO BID [facility] Last Admin: 12/19/20 09:02 Dose: Not Given Documented by: Polyethylene Glycol (Polyethylene Glycol 3350 17 Gm Packet) 17 gm PO DAILY [facility] Last Admin: 12/19/20 08:54 Dose: 17 gm Documented by: Fluticasone/Salmeterol (Fluticasone/Salmeterol 250/50 Inhaler #14) 1 puff INH BID [facility] Last Admin: 12/19/20 08:55 Dose: 1 puff Documented by: Senna (Sennosides 1 Tablet) 2 tab PO HS [facility] Last Admin: 12/18/20 21:14 Dose: 2 tab Documented by: Sodium Chloride (0.9 % Sodium Chloride 10 Ml Syringe) 10 ml IV Q8 [facility] Last Admin: 12/19/20 14:34 Dose: 10 ml Documented by: Vitamin D (Vitamin D3 1,000 Unit Tablet) 2,000 unit PO DAILY [facility] Last Admin: 12/19/20 09:05 Dose: 2,000 unit Documented by: Zolpidem Tartrate (Zolpidem 5 Mg Tablet) 5 mg PO HSP PRN PRN Reason: Insomnia A/P Assessment and plan (1) Septic olecranon bursitis of right elbow: Status: Acute Comment: by exam today is the bursa no the elbow joint itself. Will ask Dr. Mccullough to evaluate. called yesterday still awaiting return call. (2) UTI (urinary tract infection): Status: Acute Comment: improved now on cefazolin for elbow (3) Atrial fibrillation: Status: Chronic Comment: severe edema and also cellulitis. will start low dose anticoagulation stop metoprolol as rate controlled spontaneously Qualifiers: Atrial fibrillation type: unspecified Qualified Code(s): I48.91 - Unspecified atrial fibrillation (4) Chronic kidney disease, stage III (moderate): Status: Chronic Comment: 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 avoid nsaid, no metformin (5) Diabetes mellitus, type II: Status: Chronic Comment: stable on insulin improved with wt loss. blood sugars controlled on ketosis diet prior to admission and lots of wt loss. (6) Mass of cecum: Status: Acute Comment: proceed with oral contrast CT. no iv contrast due to CKD (7) CHF exacerbation: Status: Acute Comment: severe volume overload and edema with , MR continue diuresis. increase leg compression goal 20 lbs water before discharge Time Spent With Patient Time: Total time spent is greater than 50% in coordination of care (as documented) at patient's floor/unit and/or counseling patient: 42 pts daughter Nela and the pt were both counseled He says doesnt want surgery for bowel and heart. Knows at his age cant survive and has had good life. cont diuresis and antibiotics may need olecranon tap QUALITY Stroke Symptom Onset Unknown: No
--- NOTE | 2020-12-19 16:14 | Internal Med Progress Note ---
SUBJECTIVE Subjective Patient information: Note initiated : 12/19/20 at 4:05 pm Service Date, if different from initiated Date: [] Patient: Honorio Byrd a 89 y/o M admitted on 12/11/20 for altered mental status x 3 days. Chief Complaint: [] Principal diagnosis: septic right elbow Interval history: Interval history: Mr. Byrd is a 89 year old M snf resident ([facility]), h/o congestive heart failure, essential hypertension, chronic kidney disease stage IV, atrial fibrillation, type 2 diabetes mellitus, presenting with 4-day history of general body weakness, altered mental status, increasing shortness of breath, extremity edema, and pain swelling and erythema of the right elbow for 4 to 5 months. History severely limited by patient's clinical situations as well as lack of snf staff available. Vital signs are within normal limits. Labs significant for lack of leukocytosis with WBC 9.6. Serum BNP 18,000. Urine analysis suggestive of urinary tract infections. Chest x-ray suggestive of the presence of pulmonary edema. Right elbow x-ray showing cellulitis surrounding the elbow and upper forearm. No evidence of osteomyelitis or joint effusions. Radiologist assist aspirations of right elbow with proximately 2 cc of joint fluid aspirate. Patient currently denies any right elbow pain. 12/12: Afebrile overnight. Now tolerating room air. Good urine output. Blood urine and aspirate culture no growth to date. Aspirate cell WBC 65788, could be a case of septic joint. Subjective not obtained due to clinical situations. 12/13: Afebrile. Been on 2L/min oxygen. Wound culture growing kirkland sensitive MSSA. Blood culture no growth to date. Denies fever or chills. Denies SOB. Denies cough or wheezing. Denies right elbow pain. 12/14: Afebrile. Now tolerating room air. Wound culture growing kirkland sensitive MSSA. Blood culture no growth to date. Denies fever or chills. Denies SOB. Denies cough or wheezing. Denies right elbow pain. 12/15: Feels fairly well today. Did work with physical therapy. Unclear if he is approaching his baseline. Still with lower extremity edema. Spoke with Dr. Tang who aspirated the elbow, there was purulent material from both superficial and within the joint. The patient notes his elbow is feeling improved. 12/16: Just getting back to bed from chair when I see him. Quite weak needing assistance to mobilize. Continues to have significant lower extremity edema. Patient notes right elbow still hurts when touched. Remains on antibiotics for septic bursitis and presumptive septic joint. Creatinine stable at 1.8 today. 12/17 Interval history: pt accepted by [facility] to return when ready. Pt with septic elbow and still lots of swelling dependent extremities. Says elbow feels better. Noted by therapy to be doing much more activity. Pertinent ROS: MS some elbow pain worse with activity CV peristent leg swelling has been severe since July and August Was deteriorating at home so admitted to SNF just before admission known heart murmur. no known ME. 12/19 Interval history: pt with Echo showing multivalvular disease and insufficiency along with 4 chamber cardiac enlargement. Pt is diuresing well The CT show pleural effusion, ascites, anasarca. 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 has some constipation. dulcolax taken earlier Right elbow pain not much different. not worse 12/20 Constitutional Vitals: Vital Signs Temp Pulse Resp BP Pulse Ox 97.4 F 69 20 99/66 91 12/19/20 12:00 12/19/20 12:00 12/19/20 12:00 12/19/20 12:00 12/19/20 12:00 Period Temp Pulse Resp BP Sys/Steven Pulse Ox Last 24 Hr 97.1 F-97.7 F 69-76 16-22 93-104/59-69 91-95 Intake and Output 12/19/20 12/19/20 12/19/20 05:59 13:59 21:59 Intake Total 1134 300 Output Total 1924 1400 Balance -791 -1100 Intake & Output: Intake & Output 12/19/20 12/19/20 12/19/20 05:59 13:59 21:59 Intake Total 1134 300 Output Total 1924 1400 Balance -791 -1100 Intake: IV 984 Sodium Chloride 0.9% 2,000 ml @ 984 Wide Open IV .Q0M ONE Rx#: [id number] Oral 150 300 Output: Urine Catheter Amount 1924 1400 Other: Meal Breakfast Percent of Meal Consumed 100% Feeding Ability Assist with Tray Set Up Urine Appearance Sediment Uretheral (Cutler) Clear Urine Color Light Nadege Light Nadege Blood Tinged Uretheral (Cutler) Dark Yellow Urine Odor Strong Exam: General: Alert, Awake, No acute Distress Eyes/N/T: EOMI, Head/Neck: neck supple, CV: RRR, No murmurs, normal s1/s2 Pulm: Clear b/l, no wheezing/rhonchi/rales Abd: soft, nontender, +BS x4 Ext: no clubbing/cyanosis/edema Neuro: Alert, no focal deficits, moves all extremities, Skin: warm/dry OBJ DATA Labs CBC & Chem 7: 12/18/20 05:29 12/19/20 05:26 Labs: Abnormal Lab Results 12/19/20 12/18/20 12/18/20 05:26 05:29 05:29 RBC 3.89 L Hgb 9.6 L Hct 30.6 L MCV 78.7 L MCH 24.7 L RDW 20.9 H MPV 11.0 H Lymph % (Auto) 10.0 L Lymph # (Auto) 0.58 L BUN 54 H 56 H Creatinine 1.6 H 1.6 H Glucose 106 H Uric Acid 10.8 H C-Reactive Protein 2.80 H Total Protein 5.8 L Albumin 2.8 L Albumin/Globulin Ratio 0.9 L 12/17/20 06:05 RBC Hgb Hct MCV MCH RDW MPV Lymph % (Auto) Lymph # (Auto) BUN 59 H Creatinine 1.8 H Glucose Uric Acid C-Reactive Protein Total Protein Albumin 2.7 L Albumin/Globulin Ratio Meds: Medications Acetaminophen (Acetaminophen 325 Mg Tablet) 650 mg PO Q6HP PRN; Protocol PRN Reason: Per Pain Protocol/Fever > 101 Last Admin: 12/12/20 21:05 Dose: 650 mg Documented by: Albuterol/Ipratropium (Ipratropium/Albuterol 3 Ml Ampul.Neb) 3 ml NEB Q4HRT PRN PRN Reason: Wheezing Allopurinol (Allopurinol 300 Mg Tablet) 300 mg PO DAILY [facility] Last Admin: 12/19/20 08:54 Dose: 300 mg Documented by: Apixaban (Apixaban 5 Mg Tablet) 2.5 mg PO BID [facility] Last Admin: 12/19/20 08:54 Dose: 2.5 mg Documented by: Ascorbic Acid (Ascorbic Acid 500 Mg Tablet) 500 mg PO DAILY [facility] Last Admin: 12/19/20 08:54 Dose: 500 mg Documented by: Bisacodyl (Bisacodyl 10 Mg Supp.Rect) [address] DAILYP PRN PRN Reason: Constipation Bisacodyl (Bisacodyl 10 Mg Supp.Rect) [address] DAILY [facility] Last Admin: 12/19/20 08:54 Dose: 10 mg Documented by: Cefazolin Sodium (Cefazolin 1 Gm Vial) 2 gm IV Q12H [facility] Last Admin: 12/19/20 09:00 Dose: 2 gm Documented by: Cyanocobalamin (Cyanocobalamin (Vitamin B-12) 500 Mcg Tablet) 1,000 mcg PO DAILY [facility] Last Admin: 12/19/20 08:54 Dose: 1,000 mcg Documented by: Dextrose (Dextrose 50% 50 Ml Vial) 0 ml IV UD PRN PRN Reason: Hypoglycemia Diagnostic Test (Pha) (Accu-Chek 1 Each Strip) 1 each FS [facility] Last Admin: 12/19/20 11:24 Dose: 1 each Documented by: Docusate Sodium (Docusate Sodium 100 Mg Capsule) 100 mg PO BID [facility] Last Admin: 12/19/20 08:54 Dose: 100 mg Documented by: Glucose (Dextrose 31 Gm Oral.Susp) 15 gm PO PRN PRN PRN Reason: Hypoglycemia Insulin Human Lispro (Insulin Lispro 1 Unit/0.01 Ml Unit) 0 unit SQ [facility]; Protocol Last Admin: 12/19/20 11:24 Dose: Not Given Documented by: Metolazone (Metolazone 2.5 Mg Tablet) 2.5 mg PO BID@0730,1530 [facility] Last Admin: 12/19/20 14:34 Dose: 2.5 mg Documented by: Oxycodone HCl (Oxycodone Hcl 5 Mg Tablet) 5 mg PO Q6HP PRN; Protocol PRN Reason: Pain Last Admin: 12/17/20 07:40 Dose: 5 mg Documented by: Sildenafil 20 Mg (Tablet) 1 dose PO TID [facility] Last Admin: 12/19/20 14:34 Dose: Not Given Documented by: Iron Ag,[id number] -Zn-Sa-Sto [Niferex (Sumalate- Quatrefolic)] Tablet 1 dose PO DAILY [facility] Last Admin: 12/19/20 09:02 Dose: Not Given Documented by: Budesonide 160 Mcg- Formoterol 4.5 Mcg ( Symbicort) Aerosol Inhaler 1 dose PO BID [facility] Last Admin: 12/19/20 09:02 Dose: Not Given Documented by: Polyethylene Glycol (Polyethylene Glycol 3350 17 Gm Packet) 17 gm PO DAILY [facility] Last Admin: 12/19/20 08:54 Dose: 17 gm Documented by: Fluticasone/Salmeterol (Fluticasone/Salmeterol 250/50 Inhaler #14) 1 puff INH BID [facility] Last Admin: 12/19/20 08:55 Dose: 1 puff Documented by: Senna (Sennosides 1 Tablet) 2 tab PO HS [facility] Last Admin: 12/18/20 21:14 Dose: 2 tab Documented by: Sodium Chloride (0.9 % Sodium Chloride 10 Ml Syringe) 10 ml IV Q8 [facility] Last Admin: 12/19/20 14:34 Dose: 10 ml Documented by: Vitamin D (Vitamin D3 1,000 Unit Tablet) 2,000 unit PO DAILY [facility] Last Admin: 12/19/20 09:05 Dose: 2,000 unit Documented by: Zolpidem Tartrate (Zolpidem 5 Mg Tablet) 5 mg PO HSP PRN PRN Reason: Insomnia A/P Narrative A/P Narrative: A: *Septic olecranon bursitis of right elbow (MSSA): *UTI: *AFib: -stop metoprolol as rate controlled spontaneously *Acute on chronic systolic(40-45) ECHF: -severe volume overload and edema with , MR *Acute hypoxic resp failure: -on 2L NC *COPD(): *CKD IV: *Anemia, chronic: *DM: *colon CA /Mass of cecum: -pts daughter Nela and the pt were both counseled -PT doesnt want surgery for bowel and heart. Knows at age cant survive & has had good life -pt also seen in past, considered too high risk for surgery P: -Ortho consult -cont cefazolinbruce d/c on oral -will start low dose anticoagulation -cont ACEI, stopped BB as rate controlled spontaneously -continue diuresis. increase leg compression goal 20 lbs water before discharge - - -home IH's -basal and SSI -CM for placement needs -pt/ot -ppx: eliquis DNR Time Spent With Patient Time: Total time spent is greater than 50% in coordination of care (as documented) at patient's floor/unit and/or counseling patient: QUALITY Stroke Symptom Onset Unknown: No
[2020-12-19] MEDS: SENNOSIDES 1 TABLET PO SCH (21:09)
[2020-12-20] MEDS: 0.9 % SODIUM CHLORIDE 10 ML SYRINGE IV SCH ×3 (04:16→21:27)
[2020-12-20 06:35] LABS: Basophils # (Auto) 0.05 K/mcL (0.00-0.30); Basophils % (Auto) 0.7 % (0.0-2.0); Eosinophils # (Auto) 0.16 K/mcL (0.00-0.70); Eosinophils % (Auto) 2.4 % (0.0-7.0); Hematocrit 28.6 % (40.1-51.0); Hemoglobin 9.2 g/dL (13.7-17.5); Lymphocytes # (Auto) 0.54 K/mcL (1.50-4.80); Lymphocytes % (Auto) 8.1 % (15.5-49.0); Mean Cell Volume 78.1 fL (80.0-100.0); Mean Corpuscular HGB Conc 32.2 g/dL (31.0-36.0); Mean Platelet Volume 10.5 fL (7.4-10.4); Monocytes # (Auto) 0.64 K/mcL (0.10-0.90); Monocytes % (Auto) 9.6 % (1.0-12.0); Neutrophils % (Auto) 79.2 % (38.0-78.0); Platelet Count 138 K/mcL (140-440); RBC 3.66 M/mcL (4.63-6.08); Red Cell Distribution Width 20.4 % (11.5-14.5); WBC 6.7 K/mcL (4.5-11.0)
[2020-12-20 07:10] LABS: Blood Urea Nitrogen 55 mg/dL (8-23); Calcium 8.9 mg/dL (8.6-10.4); Carbon Dioxide 31 mmol/L (22-30); Chloride 95 mmol/L (96-108); Glomerular Filtration Rate 41; Glucose 107 mg/dL (70-105)
--- NOTE | 2020-12-20 07:37 | Internal Med Progress Note ---
SUBJECTIVE Subjective Patient information: Note initiated : 12/20/20 at 7:31 am Service Date, if different from initiated Date: [] Patient: Honorio Byrd a 89 y/o M admitted on 12/11/20 for altered mental status x 3 days. Chief Complaint: [] Principal diagnosis: septic right elbow Interval history: Interval history: Mr. Byrd is a 89 year old M long term resident ([facility]), h/o congestive heart failure, essential hypertension, chronic kidney disease stage IV, atrial fibrillation, type 2 diabetes mellitus, presenting with 4-day history of general body weakness, altered mental status, increasing shortness of breath, extremity edema, and pain swelling and erythema of the right elbow for 4 to 5 months. History severely limited by patient's clinical situations as well as lack of long term staff available. Vital signs are within normal limits. Labs significant for lack of leukocytosis with WBC 9.6. Serum BNP 18,000. Urine analysis suggestive of urinary tract infections. Chest x-ray suggestive of the presence of pulmonary edema. Right elbow x-ray showing cellulitis surrounding the elbow and upper forearm. No evidence of osteomyelitis or joint effusions. Radiologist assist aspirations of right elbow with proximately 2 cc of joint fluid aspirate. Patient currently denies any right elbow pain. 12/12: Afebrile overnight. Now tolerating room air. Good urine output. Blood urine and aspirate culture no growth to date. Aspirate cell WBC 65814, could be a case of septic joint. Subjective not obtained due to clinical situations. 12/13: Afebrile. Been on 2L/min oxygen. Wound culture growing kirkland sensitive MSSA. Blood culture no growth to date. Denies fever or chills. Denies SOB. Denies cough or wheezing. Denies right elbow pain. 12/14: Afebrile. Now tolerating room air. Wound culture growing kirkland sensitive MSSA. Blood culture no growth to date. Denies fever or chills. Denies SOB. Denies cough or wheezing. Denies right elbow pain. 12/15: Feels fairly well today. Did work with physical therapy. Unclear if he is approaching his baseline. Still with lower extremity edema. Spoke with Dr. Tang who aspirated the elbow, there was purulent material from both superficial and within the joint. The patient notes his elbow is feeling improved. 12/16: Just getting back to bed from chair when I see him. Quite weak needing assistance to mobilize. Continues to have significant lower extremity edema. Patient notes right elbow still hurts when touched. Remains on antibiotics for septic bursitis and presumptive septic joint. Creatinine stable at 1.8 today. 12/17 Interval history: pt [facility] to return when ready. Pt with septic elbow and still lots of swelling dependent extremities. Says elbow feels better. Noted by therapy to be doing much more activity. Pertinent ROS: MS some elbow pain worse with activity CV peristent leg swelling has been severe since July and August Was deteriorating at home so admitted to SNF just before admission known heart murmur. no known CA. 12/19 Interval history: pt with Echo showing multivalvular disease and insufficiency along with 4 chamber cardiac enlargement. Pt is diuresing well The CT show pleural effusion, ascites, anasarca. 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 has some constipation. dulcolax taken earlier Right elbow pain not much different. not worse 12/20 No overnight event or new complaints. Not complaining of elbow pain today. Review of Systems: denies headache/fever/chills/nausea/vomiting/chest or abdominal pain/cough/dyspnea/diarrhea. Otherwise see above. Constitutional Vitals: Vital Signs Temp Pulse Resp BP Pulse Ox 97.2 F 66 14 92/64 92 12/20/20 03:53 12/20/20 03:53 12/20/20 03:53 12/20/20 03:53 12/20/20 03:53 Period Temp Pulse Resp BP Sys/Steven Pulse Ox Last 24 Hr 97.1 F-97.5 F 66-78 14-22 90-103/57-71 91-95 Intake and Output 12/19/20 12/20/20 12/20/20 21:59 05:59 13:59 Intake Total 1320 550 Output Total 700 1225 Balance 620 -675 Weight 116.437 kg Intake & Output: Intake & Output 12/19/20 12/20/20 12/20/20 21:59 05:59 13:59 Intake Total 1320 550 Output Total 700 1225 Balance 620 -675 Weight 116.437 kg Intake: Nourishment/Supplement quantity 240 (ml) Oral 1080 550 Output: Urine Catheter Amount 700 1225 Other: Meal Dinner Percent of Meal Consumed 100% Feeding Ability Assist with Tray Set Up Urine Appearance Clear Urine Color Bright Yellow Bright Yellow # Bowel Movements 0 # of times incontinent of 0 Bowels Exam: General: Alert, Awake, No acute Distress Eyes/N/T: EOMI, Head/Neck: neck supple, CV: RRR, No murmurs, normal s1/s2 Pulm: diminished b/l and bibase rales, no wheezing Abd: soft, nontender, +BS x4 Ext: no clubbing/cyanosis, b/l LE edema, right elbow erythema and not particularly tender today Neuro: Alert, no focal deficits, moves all extremities, Skin: warm/dry OBJ DATA Labs CBC & Chem 7: 12/20/20 05:34 12/20/20 05:34 Labs: Abnormal Lab Results 12/20/20 12/20/20 12/19/20 05:34 05:34 05:26 RBC 3.66 L Hgb 9.2 L Hct 28.6 L MCV 78.1 L MCH 25.1 L RDW 20.4 H Plt Count 138 L MPV 10.5 H Neut % (Auto) 79.2 H Lymph % (Auto) 8.1 L Lymph # (Auto) 0.54 L Chloride 95 L Carbon Dioxide 31 H BUN 55 H 54 H Creatinine 1.5 H 1.6 H Glucose 107 H 106 H Uric Acid 10.8 H C-Reactive Protein 2.80 H Total Protein Albumin Albumin/Globulin Ratio 12/18/20 12/18/20 12/17/20 05:29 05:29 06:05 RBC 3.89 L Hgb 9.6 L Hct 30.6 L MCV 78.7 L MCH 24.7 L RDW 20.9 H Plt Count MPV 11.0 H Neut % (Auto) Lymph % (Auto) 10.0 L Lymph # (Auto) 0.58 L Chloride Carbon Dioxide BUN 56 H 59 H Creatinine 1.6 H 1.8 H Glucose Uric Acid C-Reactive Protein Total Protein 5.8 L Albumin 2.8 L 2.7 L Albumin/Globulin Ratio 0.9 L Meds: Medications Acetaminophen (Acetaminophen 325 Mg Tablet) 650 mg PO Q6HP PRN; Protocol PRN Reason: Per Pain Protocol/Fever > 101 Last Admin: 12/12/20 21:05 Dose: 650 mg Documented by: Albuterol/Ipratropium (Ipratropium/Albuterol 3 Ml Ampul.Neb) 3 ml NEB Q4HRT PRN PRN Reason: Wheezing Allopurinol (Allopurinol 300 Mg Tablet) 300 mg PO DAILY [facility] Last Admin: 12/19/20 08:54 Dose: 300 mg Documented by: Apixaban (Apixaban 5 Mg Tablet) 2.5 mg PO BID [facility] Last Admin: 12/19/20 21:09 Dose: 2.5 mg Documented by: Ascorbic Acid (Ascorbic Acid 500 Mg Tablet) 500 mg PO DAILY [facility] Last Admin: 12/19/20 08:54 Dose: 500 mg Documented by: Bisacodyl (Bisacodyl 10 Mg Supp.Rect) 10 mg [place] DAILYP PRN PRN Reason: Constipation Bisacodyl (Bisacodyl 10 Mg Supp.Rect) 10 mg TN DAILY [facility] Last Admin: 12/19/20 08:54 Dose: 10 mg Documented by: Bumetanide (Bumetanide 1 Mg/4 Ml Vial) 1 mg IV BID [facility] Stop: 12/20/20 09:01 Last Admin: 12/19/20 21:08 Dose: 1 mg Documented by: Cefazolin Sodium (Cefazolin 1 Gm Vial) 2 gm IV Q12H [facility] Last Admin: 12/19/20 21:15 Dose: 2 gm Documented by: Cyanocobalamin (Cyanocobalamin (Vitamin B-12) 500 Mcg Tablet) 1,000 mcg PO DAILY [facility] Last Admin: 12/19/20 08:54 Dose: 1,000 mcg Documented by: Dextrose (Dextrose 50% 50 Ml Vial) 0 ml IV UD PRN PRN Reason: Hypoglycemia Diagnostic Test (Pha) (Accu-Chek 1 Each Strip) 1 each FS [facility] Last Admin: 12/19/20 21:19 Dose: 1 each Documented by: Docusate Sodium (Docusate Sodium 100 Mg Capsule) 100 mg PO BID [facility] Last Admin: 12/19/20 21:09 Dose: 100 mg Documented by: Glucose (Dextrose 31 Gm Oral.Susp) 15 gm PO PRN PRN PRN Reason: Hypoglycemia Insulin Human Lispro (Insulin Lispro 1 Unit/0.01 Ml Unit) 0 unit SQ [facility]; Protocol Last Admin: 12/19/20 21:19 Dose: Not Given Documented by: Metolazone (Metolazone 2.5 Mg Tablet) 2.5 mg PO BID@6026,5832 [facility] Last Admin: 12/19/20 14:34 Dose: 2.5 mg Documented by: Oxycodone HCl (Oxycodone Hcl 5 Mg Tablet) 5 mg PO Q6HP PRN; Protocol PRN Reason: Pain Last Admin: 12/17/20 07:40 Dose: 5 mg Documented by: Sildenafil 20 Mg (Tablet) 1 dose PO TID [facility] Last Admin: 12/19/20 21:10 Dose: Not Given Documented by: Iron Ag,[id number] -Zn-Sa-Sto [Niferex (Sumalate- Quatrefolic)] Tablet 1 dose PO DAILY [facility] Last Admin: 12/19/20 09:02 Dose: Not Given Documented by: Budesonide 160 Mcg- Formoterol 4.5 Mcg ( Symbicort) Aerosol Inhaler 1 dose PO BID [facility] Last Admin: 12/19/20 21:09 Dose: Not Given Documented by: Polyethylene Glycol (Polyethylene Glycol 3350 17 Gm Packet) 17 gm PO DAILY [facility] Last Admin: 12/19/20 08:54 Dose: 17 gm Documented by: Fluticasone/Salmeterol (Fluticasone/Salmeterol 250/50 Inhaler #14) 1 puff INH BID [facility] Last Admin: 12/19/20 21:09 Dose: 1 puff Documented by: Senna (Sennosides 1 Tablet) 2 tab PO HS [facility] Last Admin: 12/19/20 21:09 Dose: 2 tab Documented by: Sodium Chloride (0.9 % Sodium Chloride 10 Ml Syringe) 10 ml IV Q8 [facility] Last Admin: 12/20/20 04:16 Dose: 10 ml Documented by: Vitamin D (Vitamin D3 1,000 Unit Tablet) 2,000 unit PO DAILY [facility] Last Admin: 12/19/20 09:05 Dose: 2,000 unit Documented by: Zolpidem Tartrate (Zolpidem 5 Mg Tablet) 5 mg PO HSP PRN PRN Reason: Insomnia A/P Narrative A/P Narrative: A: *Septic olecranon bursitis of right elbow (MSSA): *UTI: *AFib: -metoprolol stopped as rate controlled spontaneously *Acute on chronic systolic(40-45) ECHF: -severe volume overload and edema with , MR -good UOP *Acute hypoxic resp failure: -on 2L NC *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 Knows at age cant survive & has had good life -pt also seen in past, considered too high risk for surgery P: -Ortho consult -cont cefazolin likley d/c on oral -started low dose anticoagulation -cont ACEI, stopped BB as rate controlled spontaneously -continue bumex/metolazone. increase leg compression goal 20 lbs water before discharge - -home IH's -basal and SSI -CM for placement needs -pt/ot -ppx: eliquis DNR Time Spent With Patient Time: Total time spent is greater than 50% in coordination of care (as documented) at patient's floor/unit and/or counseling patient: QUALITY Stroke Symptom Onset Unknown: No
[2020-12-20] MEDS: INSULIN LISPRO 1 UNIT/0.01 ML UNIT SQ SCH ×4 (07:47→21:28)
[2020-12-20] MEDS: METOLAZONE 2.5 MG TABLET PO SCH (08:20)
[2020-12-20] MEDS ORDERED: METOLAZONE 2.5 MG TABLET PO SCH (08:30)
[2020-12-20] MEDS ORDERED: ALBUMIN HUMAN 12.5 GM/50 ML BAG IV ONE (09:00)
[2020-12-20] MEDS: APIXABAN 5 MG TABLET PO SCH ×2 (10:17→21:27)
[2020-12-20] MEDS: ASCORBIC ACID 500 MG TABLET PO SCH (10:17)
[2020-12-20] MEDS: CYANOCOBALAMIN (VITAMIN B-12) 500 MCG TABLET PO SCH (10:18)
[2020-12-20] MEDS: ALLOPURINOL 300 MG TABLET PO SCH (10:18)
[2020-12-20] MEDS: DOCUSATE SODIUM 100 MG CAPSULE PO SCH ×2 (10:19→21:27)
[2020-12-20] MEDS: FLUTICASONE/SALMETEROL 250/50 INHALER #14 INH SCH ×2 (10:19→21:26)
[2020-12-20] MEDS: [UNRECOGNIZED DRUG - OTHER] PO SCH (10:19)
[2020-12-20] MEDS: VITAMIN D3 25 MCG TABLET PO SCH (10:19)
[2020-12-20] MEDS: ceFAZolin 1 GM VIAL IV SCH ×2 (10:34→21:27)
[2020-12-20] MEDS: POLYETHYLENE GLYCOL 3350 17 GM PACKET PO SCH (10:40)
[2020-12-20] MEDS: BISACODYL 10 MG SUPP.RECT PR SCH (10:40)
[2020-12-20] MEDS: FORMOTEROL 4.5 MCG PO SCH ×2 (10:40→21:28)
[2020-12-20] MEDS: BUDESONIDE 160 MCG PO SCH ×2 (10:40→21:28)
[2020-12-20] MEDS: BUMETANIDE 1 MG/4 ML VIAL IV SCH (11:30)
[2020-12-20] MEDS: SENNOSIDES 1 TABLET PO SCH (21:27)
[2020-12-21] MEDS: 0.9 % SODIUM CHLORIDE 10 ML SYRINGE IV SCH ×2 (04:44→13:55)
[2020-12-21] MEDS: INSULIN LISPRO 1 UNIT/0.01 ML UNIT SQ SCH ×2 (06:59→11:28)
[2020-12-21] MEDS ORDERED: METOLAZONE 2.5 MG TABLET PO ONE (07:54)
[2020-12-21] MEDS ORDERED: BUMETANIDE 1 MG/4 ML VIAL IV ONE (07:54)
--- NOTE | 2020-12-21 07:55 | Internal Med Progress Note ---
SUBJECTIVE Subjective Patient information: Note initiated : 12/21/20 at 7:51 am Service Date, if different from initiated Date: [] Patient: Honorio Byrd 89 y/o M admitted on 12/11/20 for altered mental status x 3 days. Chief Complaint: [] Principal diagnosis: septic right elbow Interval history: Interval history: Mr. Byrd is a 89 [facility] old [facility] ([facility]), h/o congestive heart failure, essential hypertension, chronic kidney disease stage IV, atrial fibrillation, type 2 diabetes mellitus, presenting with 4-day history of general body weakness, altered mental status, increasing shortness of breath, extremity edema, and pain swelling and erythema of the right elbow for 4 to 5 months. History severely limited by patient's clinical situations as well as lack of penitentiary staff available. Vital signs are within normal limits. Labs significant for lack of leukocytosis with WBC 9.6. Serum BNP 18,000. Urine analysis suggestive of urinary tract infections. Chest x-ray suggestive of the presence of pulmonary edema. Right elbow x-ray showing cellulitis surrounding the elbow and upper forearm. No evidence of osteomyelitis or joint effusions. Radiologist assist aspirations of right elbow with proximately 2 cc of joint fluid aspirate. Patient currently denies any right elbow pain. 12/12: Afebrile overnight. Now tolerating room air. Good urine output. Blood urine and aspirate culture no growth to date. Aspirate cell WBC 31981, could be a case of septic joint. Subjective not obtained due to clinical situations. 12/13: Afebrile. Been on 2L/min oxygen. Wound culture growing kirkland sensitive MSSA. Blood culture no growth to date. Denies fever or chills. Denies SOB. Denies cough or wheezing. Denies right elbow pain. 12/14: Afebrile. Now tolerating room air. Wound culture growing kirkland sensitive MSSA. Blood culture no growth to date. Denies fever or chills. Denies SOB. Denies cough or wheezing. Denies right elbow pain. 12/15: Feels fairly well today. Did work with physical therapy. Unclear if he is approaching his baseline. Still with lower extremity edema. Spoke with Dr. Tang who aspirated the elbow, there was purulent material from both superficial and within the joint. The patient notes his elbow is feeling improved. 12/16: Just getting back to bed from chair when I see him. Quite weak needing assistance to mobilize. Continues to have significant lower extremity edema. Patient notes right elbow still hurts when touched. Remains on antibiotics for septic bursitis and presumptive septic joint. Creatinine stable at 1.8 today. 12/17 Interval history: [facility] ready. Pt with septic elbow and still lots of swelling dependent extremities. Says elbow feels better. Noted by therapy to be doing much more activity. Pertinent ROS: MS some elbow pain worse with activity CV peristent leg swelling has been severe since July and August Was deteriorating at home so admitted to SNF just before admission known heart murmur. no known MN. 12/19 Interval history: pt with Echo showing multivalvular disease and insufficiency along with 4 chamber cardiac enlargement. Pt is diuresing well The CT show pleural effusion, ascites, anasarca. 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 has some constipation. dulcolax taken earlier Right elbow pain not much different. not worse 12/20 No overnight event or new complaints. Not complaining of elbow pain today. 12/21 No overnight event or new complaints. Elbow seems to be improving. Review of Systems: denies headache/fever/chills/nausea/vomiting/chest or abdominal pain/cough/dyspnea/diarrhea. Otherwise see above. Constitutional Vitals: Vital Signs Temp Pulse Resp BP Pulse Ox 97.0 F 70 18 99/67 95 12/21/20 04:00 12/21/20 04:00 12/21/20 04:00 12/21/20 04:00 12/21/20 04:00 Period Temp Pulse Resp BP Sys/Steven Pulse Ox Last 24 Hr 97.0 F-97.8 F 69-82 15-20 97-112/62-74 93-97 Intake and Output 12/20/20 12/21/20 12/21/20 21:59 05:59 13:59 Intake Total 50 400 Output Total 750 300 Balance -700 100 Weight 115.621 kg Intake & Output: Intake & Output 12/20/20 12/21/20 12/21/20 21:59 05:59 13:59 Intake Total 50 400 Output Total 750 300 Balance -700 100 Weight 115.621 kg Intake: IV 50 Oral 400 Output: Urine Catheter Amount 750 300 Other: Urine Appearance Sediment Sediment Uretheral (Cutler) Sediment Urine Color Dark Yellow Dark Yellow Uretheral (Cutler) Dark Yellow Urine Odor Normal Exam: General: Alert, Awake, No acute Distress Eyes/N/T: EOMI, Head/Neck: neck supple, CV: RRR, No murmurs, normal s1/s2 Pulm: diminished b/l and bibase rales, no wheezing Abd: soft, nontender, +BS x4 Ext: no clubbing/cyanosis, b/l LE edema, right elbow erythema and not particularly tender today Neuro: Alert, no focal deficits, moves all extremities, Skin: warm/dry OBJ DATA Labs CBC & Chem 7: 12/20/20 05:34 12/21/20 05:49 Labs: Abnormal Lab Results 12/20/20 12/20/20 12/19/20 05:34 05:34 05:26 RBC 3.66 L Hgb 9.2 L Hct 28.6 L MCV 78.1 L MCH 25.1 L RDW 20.4 H Plt Count 138 L MPV 10.5 H Neut % (Auto) 79.2 H Lymph % (Auto) 8.1 L Lymph # (Auto) 0.54 L Chloride 95 L Carbon Dioxide 31 H BUN 55 H 54 H Creatinine 1.5 H 1.6 H Glucose 107 H 106 H Uric Acid 10.8 H C-Reactive Protein 2.80 H Meds: Medications Acetaminophen (Acetaminophen 325 Mg Tablet) 650 mg PO Q6HP PRN; Protocol PRN Reason: Per Pain Protocol/Fever > 101 Last Admin: 12/12/20 21:05 Dose: 650 mg Documented by: Albuterol/Ipratropium (Ipratropium/Albuterol 3 Ml Ampul.Neb) 3 ml NEB Q4HRT PRN PRN Reason: Wheezing Allopurinol (Allopurinol 300 Mg Tablet) 300 mg PO DAILY [facility] Last Admin: 12/20/20 10:18 Dose: 300 mg Documented by: Apixaban (Apixaban 5 Mg Tablet) 2.5 mg PO BID [facility] Last Admin: 12/20/20 21:27 Dose: 2.5 mg Documented by: Ascorbic Acid (Ascorbic Acid 500 Mg Tablet) 500 mg PO DAILY [facility] Last Admin: 12/20/20 10:17 Dose: 500 mg Documented by: Bisacodyl (Bisacodyl 10 Mg Supp.Rect) 10 mg IN DAILYP PRN PRN Reason: Constipation Bisacodyl (Bisacodyl 10 Mg Supp.Rect) 10 mg IN DAILY [facility] Last Admin: 12/20/20 10:40 Dose: Not Given Documented by: Cefazolin Sodium (Cefazolin 1 Gm Vial) 2 gm IV Q12H [facility] Last Admin: 12/20/20 21:27 Dose: 2 gm Documented by: Cyanocobalamin (Cyanocobalamin (Vitamin B-12) 500 Mcg Tablet) 1,000 mcg PO DAILY [facility] Last Admin: 12/20/20 10:18 Dose: 1,000 mcg Documented by: Dextrose (Dextrose 50% 50 Ml Vial) 0 ml IV UD PRN PRN Reason: Hypoglycemia Diagnostic Test (Pha) (Accu-Chek 1 Each Strip) 1 each FS [facility] Last Admin: 12/21/20 06:57 Dose: 1 each Documented by: Docusate Sodium (Docusate Sodium 100 Mg Capsule) 100 mg PO BID [facility] Last Admin: 12/20/20 21:27 Dose: 100 mg Documented by: Glucose (Dextrose 31 Gm Oral.Susp) 15 gm PO PRN PRN PRN Reason: Hypoglycemia Insulin Human Lispro (Insulin Lispro 1 Unit/0.01 Ml Unit) 0 unit SQ [facility]; Protocol Last Admin: 12/21/20 06:59 Dose: Not Given Documented by: Metolazone (Metolazone 2.5 Mg Tablet) 5 mg PO DAILY@0830 [facility] Last Admin: 12/20/20 10:18 Dose: 5 mg Documented by: Oxycodone HCl (Oxycodone Hcl 5 Mg Tablet) 5 mg PO Q6HP PRN; Protocol PRN Reason: Pain Last Admin: 12/17/20 07:40 Dose: 5 mg Documented by: Sildenafil 20 Mg (Tablet) 1 dose PO TID [facility] Last Admin: 12/20/20 21:28 Dose: Not Given Documented by: Iron Ag,[id number] -Zn-Sa-Sto [Niferex (Sumalate- Quatrefolic)] Tablet 1 dose PO DAILY [facility] Last Admin: 12/20/20 10:19 Dose: Not Given Documented by: Budesonide 160 Mcg- Formoterol 4.5 Mcg ( Symbicort) Aerosol Inhaler 1 dose PO BID [facility] Last Admin: 12/20/20 21:28 Dose: Not Given Documented by: Polyethylene Glycol (Polyethylene Glycol 3350 17 Gm Packet) 17 gm PO DAILY [facility] Last Admin: 12/20/20 10:40 Dose: Not Given Documented by: Fluticasone/Salmeterol (Fluticasone/Salmeterol 250/50 Inhaler #14) 1 puff INH BID [facility] Last Admin: 12/20/20 21:26 Dose: 1 puff Documented by: Senna (Sennosides 1 Tablet) 2 tab PO HS [facility] Last Admin: 12/20/20 21:27 Dose: 2 tab Documented by: Sodium Chloride (0.9 % Sodium Chloride 10 Ml Syringe) 10 ml IV Q8 [facility] Last Admin: 12/21/20 04:44 Dose: 10 ml Documented by: Vitamin D (Vitamin D3 1,000 Unit Tablet) 2,000 unit PO DAILY [facility] Last Admin: 12/20/20 10:19 Dose: 2,000 unit Documented by: Zolpidem Tartrate (Zolpidem 5 Mg Tablet) 5 mg PO HSP PRN PRN Reason: Insomnia A/P Narrative A/P Narrative: A: *Septic olecranon bursitis of right elbow (MSSA): improved *UTI: *AFib: -metoprolol stopped as rate controlled spontaneously *Acute on chronic systolic(40-45) ECHF: -severe volume overload and edema with , MR -good UOP *Acute hypoxic resp failure: -on 2L NC *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 Knows at age cant survive & has had good life -pt also seen in past, considered too high risk for surgery *goals of care: family discussions P: -cont cefazolinbruce d/c on oral keflex -started low dose anticoagulation -cont ACEI, stopped BB as rate controlled spontaneously -prn bumex/metolazone, use comp wraps - -home IH's -basal and SSI -CM for placement needs -pt/ot -family meeting today -ppx: eliquis DNR Time Spent With Patient Time: Total time spent is greater than 50% in coordination of care (as documented) at patient's floor/unit and/or counseling patient: QUALITY Stroke Symptom Onset Unknown: No
[2020-12-21 08:03] LABS: ALT/SGPT < 5 U/L (<40); AST/SGOT 16 U/L (<40); Alkaline Phosphatase 97 U/L (39-117); Bilirubin,Direct 0.4 mg/dL (<0.3); Bilirubin,Total 0.9 mg/dL (0.1-1.0); Blood Urea Nitrogen 47 mg/dL (8-23); Calcium 9.1 mg/dL (8.6-10.4); Carbon Dioxide 31 mmol/L (22-30); Chloride 95 mmol/L (96-108); Globulin 3.1 gm/dL (2.2-3.7); Glomerular Filtration Rate 35; Glucose 81 mg/dL (70-105); Lactate Dehydrogenase 263 U/L (135-225); Phosphorous 2.8 mg/dL (2.5-4.5); Triglycerides 52 mg/dL (<150); Uric Acid 10.2 mg/dL (2.5-8.0)
[2020-12-21] MEDS: ASCORBIC ACID 500 MG TABLET PO SCH (09:16)
[2020-12-21] MEDS: ALLOPURINOL 300 MG TABLET PO SCH (09:16)
[2020-12-21] MEDS: APIXABAN 5 MG TABLET PO SCH (09:16)
[2020-12-21] MEDS: CYANOCOBALAMIN (VITAMIN B-12) 500 MCG TABLET PO SCH (09:17)
[2020-12-21] MEDS: DOCUSATE SODIUM 100 MG CAPSULE PO SCH (09:17)
[2020-12-21] MEDS: POLYETHYLENE GLYCOL 3350 17 GM PACKET PO SCH (09:17)
[2020-12-21] MEDS: VITAMIN D3 25 MCG TABLET PO SCH (09:17)
[2020-12-21] MEDS: FLUTICASONE/SALMETEROL 250/50 INHALER #14 INH SCH (09:18)
[2020-12-21] MEDS: BISACODYL 10 MG SUPP.RECT PR SCH (09:18)
[2020-12-21] MEDS: ceFAZolin 1 GM VIAL IV SCH (09:29)
[2020-12-21] MEDS: BUDESONIDE 160 MCG PO SCH (10:57)
[2020-12-21] MEDS: FORMOTEROL 4.5 MCG PO SCH (10:57)
[2020-12-21] MEDS: [UNRECOGNIZED DRUG - OTHER] PO SCH (11:00)
--- NOTE | 2020-12-21 13:33 | Discharge Summary ---
Discharge Provider Provider Patient information: Note initiated : 12/21/20 at 1:31 pm Service Date, if different from initiated Date: [] Patient: Honorio Byrd 89 y/o M admitted on 12/11/20 for altered mental status x 3 days. Chief Complaint: [] Date of admission: 12/11/20 23:27 Discharge date: 12/21/20 Primary care physician: Baron Gresham Consults: 12/11/20 Consult to Physician [CONS] Stat Comment: Consulting Provider: Nii Marin Reason For Exam: Physician to Consult 12/18/20 14:58 Consult to Physician [CONS] Routine Comment: septic olecranon bursitis Consulting Provider: Leonard Porter Reason For Exam: Physician to Consult Discharge Meds Discharge Medications Home Medications cyanocobalamin (vitamin B-12) 1,000 mcg tablet 1,000 mcg PO QDAY tab 08/16/14 [History Confirmed 12/12/20 Last Taken 1 Day Ago ~12/11/20] furosemide 20 mg tablet 40 mg PO BID tab 12/23/18 [History Confirmed 12/11/20 Last Taken 07/21/20 07:00] iron 150 mg-vit C 60 mg-folate 1 [id number] tablet 1 tab PO QDAY #30 tab 06/19/20 [Rx Confirmed 12/12/20 Last Taken 1 Day Ago ~12/11/20] acetaminophen [Tylenol] 325 mg PO Q4HP PRN 12/11/20 [History Confirmed 12/12/20 Last Taken Unknown] ascorbate calcium (vitamin C) 500 mg PO DAILY 12/11/20 [History Confirmed 12/12/20 Last Taken 1 Day Ago ~12/11/20] bisacodyl [Dulcolax (bisacodyl)] 10 mg SD QDAY PRN 12/11/20 [History Confirmed 12/12/20 Last Taken Unknown] cholecalciferol (vitamin D3) 50 mcg PO DAILY 12/11/20 [History Confirmed 12/12/20 Last Taken 1 Day Ago ~12/11/20] metoprolol tartrate 12.5 mg PO BID 12/11/20 [History Confirmed 12/11/20 Last Taken Unknown] sennosides [senna] 8.6 mg PO DAILY 12/11/20 [History Confirmed 12/11/20 Last Taken Unknown] budesonide-formoterol [Symbicort] 1 puff INHALATION BID 12/13/20 [History Confirmed 12/13/20 Last Taken Unknown] apixaban [Eliquis] 2.5 mg PO BID #60 tab 12/21/20 [Rx Last Taken Unknown] cephalexin 500 mg PO TID #7 cap 12/21/20 [Rx Last Taken Unknown] oxycodone 5 mg PO Q6 PRN #10 tab 12/21/20 [Rx Last Taken Unknown] COURSE Hospital Course Hospital course: nterval history: Mr. Byrd is a 89 [facility] old M [facility] ([facility]), h/o congestive heart failure, essential hypertension, chronic kidney disease stage IV, atrial fibrillation, type 2 diabetes mellitus, presenting with 4-day history of general body weakness, altered mental status, increasing shortness of breath, extremity edema, and pain swelling and erythema of the right elbow for 4 to 5 months. History severely limited by patient's clinical situations as well as lack of [facility] staff available. Vital signs are within normal limits. Labs significant for lack of leukocytosis with WBC 9.6. Serum BNP 18,000. Urine analysis suggestive of urinary tract infections. Chest x-ray suggestive of the presence of pulmonary edema. Right elbow x-ray showing cellulitis surrounding the elbow and upper forearm. No evidence of osteomyelitis or joint effusions. Radiologist assist aspirations of right elbow with proximately 2 cc of joint fluid aspirate. Patient currently denies any right elbow pain. 12/12: Afebrile overnight. Now tolerating room air. Good urine output. Blood urine and aspirate culture no growth to date. Aspirate cell WBC 73368, could be a case of septic joint. Subjective not obtained due to clinical situations. 12/13: Afebrile. Been on 2L/min oxygen. Wound culture growing kirkland sensitive MSSA. Blood culture no growth to date. Denies fever or chills. Denies SOB. Denies cough or wheezing. Denies right elbow pain. 12/14: Afebrile. Now tolerating room air. Wound culture growing kirkland sensitive MSSA. Blood culture no growth to date. Denies fever or chills. Denies SOB. Denies cough or wheezing. Denies right elbow pain. 12/15: Feels fairly well today. Did work with physical therapy. Unclear if he is approaching his baseline. Still with lower extremity edema. Spoke with Dr. Tang who aspirated the elbow, there was purulent material from both superficial and within the joint. The patient notes his elbow is feeling improved. 12/16: Just getting back to bed from chair when I see him. Quite weak needing assistance to mobilize. Continues to have significant lower extremity edema. Patient notes right elbow still hurts when touched. Remains on antibiotics for septic bursitis and presumptive septic joint. Creatinine stable at 1.8 today. 12/17 Interval history: pt accepted by [facility] to return when ready. Pt with septic elbow and still lots of swelling dependent extremities. Says elbow feels better. Noted by therapy to be doing much more activity. Pertinent ROS: MS some elbow pain worse with activity CV peristent leg swelling has been severe since July and August Was deteriorating at home so admitted to SNF just before admission known heart murmur. no known OR. 12/19 Interval history: pt with Echo showing multivalvular disease and insufficiency along with 4 chamber cardiac enlargement. Pt is diuresing well The CT show pleural effusion, ascites, anasarca. 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 has some constipation. dulcolax taken earlier Right elbow pain not much different. not worse 12/20 No overnight event or new complaints. Not complaining of elbow pain today. 12/21 No overnight event or new complaints. Elbow seems to be improving. Given age and significant comorbidities including untreated colon cancer patient extremely high risk for readmission. Would highly recommend reevaluation with hospice. A: *Septic olecranon bursitis of right elbow (MSSA): improved *UTI: *AFib: -metoprolol stopped as rate controlled spontaneously *Acute on chronic systolic(40-45) ECHF: -severe volume overload and edema with , MR -good UOP *Acute hypoxic resp failure: -on 2L NC *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 Knows at age cant survive & has had good life -pt also seen in past, considered too high risk for surgery *goals of care: family discussions Discharge diagnosis: UTI sepsis olecranon bursitis infection A. fib CHF Secondary discharge diagnosis: COPD obstructive sleep apnea chronic kidney disease diabetes colon cancer untreated goals of care discussion Time Spent with Patient Time attestation: Total time spent providing and/or coordinating discharge services: EXAM Constitutional Vitals: Temp Pulse Resp BP Pulse Ox 98.9 F 87 19 132/65 95 12/21/20 12:00 12/21/20 12:00 12/21/20 12:00 12/21/20 12:00 12/21/20 12:00 Discharge Data Data Completed and Pending Labs on day of discharge: Labs from last 24 hours 12/21/20 05:49 Sodium 139 Potassium 3.9 Chloride 95 L Carbon Dioxide 31 H Anion Gap 13.0 BUN 47 H Creatinine 1.7 H GFR Calculation 35 Glucose 81 Uric Acid 10.2 H Calcium 9.1 Phosphorus 2.8 Magnesium 2.1 Total Bilirubin 0.9 Direct Bilirubin 0.4 H GGT 22 AST 16 ALT < 5 Alkaline Phosphatase 97 Lactate Dehydrogenase 263 H C-Reactive Protein 2.80 H Total Protein 6.1 Albumin 3.0 L Globulin 3.1 Albumin/Globulin Ratio 1.0 Triglycerides 52 Discharge Plan Patient/Caregiver Discharge Instructions Activity: increase activity as tolerated Diet: Consistent Carbohydrate Prescriptions: New Eliquis 5 mg Tablet 2.5 mg PO BID Qty: 60 RF: 0 Continued cyanocobalamin (vitamin B-12) 1,000 mcg tablet 1,000 mcg PO QDAY RF: 0 Niferex (Sumalate-Quatrefolic) 150 mg iron- 60 mg-1 mg tablet 1 tab PO QDAY Qty: 30 RF: 0 furosemide 20 mg tablet 40 mg PO BID RF: 0 sennosides [senna] 8.6 mg Tablet 8.6 mg PO DAILY RF: 0 acetaminophen [Tylenol] 325 mg Tablet 325 mg PO Q4HP PRN (Reason: Pain) RF: 0 bisacodyl [Dulcolax (bisacodyl)] 10 mg Suppository 10 mg SD QDAY PRN (Reason: Constipation) RF: 0 ascorbate calcium (vitamin C) 500 mg Tablet 500 mg PO DAILY RF: 0 cholecalciferol (vitamin D3) 50 mcg (2,000 unit) Tablet 50 mcg PO DAILY RF: 0 metoprolol tartrate 25 mg tablet 12.5 mg PO BID RF: 0 budesonide-formoterol [Symbicort] 160-4.5 mcg/actuation Hfa Aerosol Inhaler 1 puff INHALATION BID RF: 0 cephalexin 500 mg Capsule 500 mg PO TID Qty: 7 RF: 0 oxycodone 5 mg Tablet 5 mg PO Q6 PRN (Reason: Pain) Qty: 10 RF: 0 Follow Up Plan Follow up with: Vinnie Gresham MD [Primary Care Provider] - Patient Disposition: Xfer SNF Prognosis: Undetermined Rehab Potential: Fair I certify that the patient requires SNF services: Yes Overall status at discharge: patient is progressing back to baseline Discharge Orders: Discharge Order (Routine); Ordered 12/21/20 Ordered By: Ian Almanza
== END 2020-12-21 15:00 | DRG 548 ==
LOC: ED 14:08 → MEDSUR 23:27
PROVIDERS: ADMIT Internal Medicine; ATTEND Internal Medicine